=== PATIENT | female | born 1955 | race Caucasian/White ===

== ENCOUNTER 2016-04-09 22:19 | Inpatient (IN) | payer OTHER ==
[2016-04-09] MEDS ORDERED: HYDROmorphone INJ* 1 MG/ML CARPUJECT SYRINGE IV ONE (22:33)
[2016-04-09] MEDS ORDERED: NS 0.9% 1000 ML* 1,000 ML IV ONE (22:33)
[2016-04-09 22:46] LABS: Hematocrit 45 % (35-47); Hemoglobin 14.2 g/dl (12.0-16.0); Mean Corpuscular HGB Conc 31 g/dl (31-36); Mean Corpuscular Hemoglobin 25 pg (27-31); Mean Corpuscular Volume 81 fL (80-97); Mean Platelet Volume 8 um3 (7.4-10.4); Red Cell Distribution Width 18 % (10.5-15); White Blood Count 10.4 10^3/ul (3.5-10.8)
[2016-04-09 22:54] LABS: Albumin 3.8 g/dL (3.2-5.2); BUN/Creatinine Ratio 50.5 (8-20); C Reactive Protein 6.21 mg/L (< 5.00); Calcium 9.5 mg/dL (8.6-10.3); EGFR African American 73.1 (>60); EGFR Non-African American 56.8 (>60); Globulin 3.9 g/dL (2-4); Potassium 4.2 mmol/L (3.5-5.0); Total Bilirubin 0.6 mg/dL (0.2-1.0); Total Protein 7.7 g/dL (6.4-8.9)
[2016-04-09] MEDS: Ondansetron INJ* 2 MG/ML VIAL IV ONE (22:55)
[2016-04-10] MEDS ORDERED: Piperac/Tazob 3.375 gm in NS* 3.375 GM/100 ML BAG IVPB ONE (00:34)
[2016-04-10] MEDS ORDERED: metroNIDAZOLE IV 500 MG/100ML* 500 MG/100 ML BAG IVPB ONE (00:34)
[2016-04-10] MEDS ORDERED: Ondansetron INJ* 2 MG/ML VIAL ONE (01:29)
[2016-04-10] MEDS: Ondansetron INJ* 2 MG/ML VIAL IV ONE (01:33)
[2016-04-10] MEDS ORDERED: Insulin REGULAR(*) 1 UNITS UNIT SUBCUT ONE (04:36)
[2016-04-10] MEDS ORDERED: Albuterol HFA INHALER* 8 gm MDI INH PRN (05:57)
[2016-04-10] MEDS ORDERED: Albuterol/Ipratropium NEB.SOL* Albuterol 2.5 MG/Ipratropium 0.5 MG 3 ML INH PRN (05:57)
[2016-04-10] MEDS ORDERED: Nitroglycerin TAB 0.4 MG* 0.4 MG TAB SL PRN (05:57)
[2016-04-10] MEDS ORDERED: Ondansetron INJ* 2 MG/ML VIAL IV PRN (06:03)
--- NOTE | 2016-04-10 06:20 | ED ---
Sohail Steve Erika, scribed for Hiren Coffey MD on 04/10/16 at 0419 . Progress - Progress Note Progress Note: Discussed patient care with Dr. Gary (surgery) at 04:27 - Discussed CT results. Recommends that hospitalist see the patient, and states he will come and see the patient - Results/Orders Results/Orders: US Gallbladder read by Imaging customer contact sales associate - Pneumobilia versus portal venous gas in the liver. Cholelithiasis. Otherwise normal appearing gallbladder. CBD WNL. Limited pancreas. Normal appearance of the right kidney. CT A/P W/O read by Imaging customer contact sales associate - Extensive portal venous gas appears to be originating from abnormal appearing featureless small bowel loops in the med left abdomen that are borderline distended. These findings are likely secondary to ischemia. Obstruction is less likely but should be considered. Re-Evaluation - Re-Evaluation First Eval Re-Evaluation Time: 04:31 Comment: Pt is fairly comfortable Course/Dx - Diagnoses Provider Diagnoses: Acute abdominal pain - Provider Notifications Instructed by Provider To: Admit As Inpatient The documentation as recorded by the Sohail mustafa Erika accurately reflects the service I personally performed and the decisions made by me, Hiren Coffey MD.
[2016-04-10] MEDS: HYDROmorphone INJ* 1 MG/ML CARPUJECT SYRINGE IV SLOW PU PRN ×2 (07:05→23:20)
[2016-04-10] MEDS ORDERED: Bupivacaine 0.25% EPI 200,000* 30 ML SDV ONE (07:20)
[2016-04-10] MEDS ORDERED: Famotidine IV* 10 MG/ML 2 ML (20 mg) ONE (07:27)
[2016-04-10] MEDS ORDERED: fentaNYL* 50 MCG/ML 2 ML VIAL (100 MCG VIAL) ONE (07:27)
[2016-04-10] MEDS ORDERED: Midazolam* 1 MG/ML 2 ML VIAL (2 MG) ONE (07:27)
--- NOTE | 2016-04-10 07:43 | RAD ---
HISTORY: Right upper quadrant pain COMPARISONS: CT of the abdomen and pelvis dated April 10, 2016 TECHNIQUE: Multiple transverse and longitudinal ultrasound images were obtained of the right upper quadrant of the abdomen using grayscale and color Doppler imaging. FINDINGS: The study is limited by patient bowel gas. LIVER: The liver is heterogeneous in attenuation. There is increased echogenicity that appears to represent pneumobilia versus portal venous gas. There is normal hepatopedal flow of the portal vein on Doppler imaging. BILIARY TREE: . The common duct measures 0.4 cm. GALLBLADDER: There is multilevel echogenic material suggestive of gallstones versus sludge ball. There is no sonographic Macias's sign or gallbladder wall thickening. PANCREAS: The pancreas is obscured by overlying bowel gas. RIGHT KIDNEY: The right kidney is diffusely increased echogenicity. There is no hydronephrosis or nephrolithiasis. The right kidney measures 10.7 x 5.5 x 5 cm. AORTA AND IVC: The vasculature is not well-visualized secondary to overlying bowel gas FLUID: There are no pleural effusions. There is no free fluid within the hepatorenal recess. OTHER FINDINGS: None. IMPRESSION: 1. FINDINGS SUGGESTIVE OF PNEUMOBILIA VERSUS PORTAL VENOUS GAS. 2. ECHOGENIC KIDNEY CONSISTENT WITH MEDICAL RENAL DISEASE. 3. GALLSTONES VERSUS SLUDGE BALLS. NO SONOGRAPHIC FEATURES OF ACUTE CHOLECYSTITIS
[2016-04-10] MEDS ORDERED: Spiriva Inhaler DEVICE* 1 EACH DEVICE INH ONE (08:00)
[2016-04-10] MEDS ORDERED: ZOSYN 3.375 GM ONE TIME DOSE-OVER 30 MINUTES IVPB (08:00)
--- NOTE | 2016-04-10 08:02 | RAD ---
HISTORY: Vomiting, abdominal pain COMPARISONS: None VIEWS:1: Single frontal portable view of the chest at 6:51 AM FINDINGS: LINES AND TUBES: There is left-sided pacemaker. CARDIOMEDIASTINAL SILHOUETTE: The cardiomediastinal silhouette is normal for portable technique. PLEURA: The costophrenic angles are sharp. No pleural abnormalities are noted. LUNG PARENCHYMA: There is mild prominence of the central pulmonary vasculature. ABDOMEN: The upper abdomen is clear. There is no subphrenic gas. BONES AND SOFT TISSUES: The patient is status post median sternotomy. Calcific density is noted along the proximal left humerus consistent with calcific tendinopathy. IMPRESSION: MILD PULMONARY VASCULAR CONGESTION
[2016-04-10] MEDS ORDERED: Cisatracurium* 2 MG/ML MDV 10 ML ONE (08:06)
[2016-04-10] MEDS ORDERED: KETAMINE HCL* 50 MG/ML 10 ML VIAL ONE (08:06)
--- NOTE | 2016-04-10 08:09 | RAD ---
Indication: Right upper quadrant pain. CT of the abdomen and pelvis was performed after oral contrast administration. No IV contrast was given. There are no prior studies available for comparison. Coronal and sagittal reconstructed images were obtained. The lung bases demonstrate no pleural fluid, nodules or masses. The heart is enlarged without evidence of pericardial effusion. Pacemaker leads are in place. The liver demonstrates enlargement. Multiple branching areas of air are noted within the liver consistent with portal venous gas. The pancreas demonstrates no mass or pancreatic ductal dilatation. The spleen is normal in size. The gallbladder demonstrates multiple calcified gallstones. No adrenal lesions are noted. The kidneys demonstrate no hydronephrosis. Atherosclerotic aorta is noted. There is rather featureless loops of small bowel in the left lower quadrant. There is suggestion of some pneumatosis in the left lower quadrant. This may be the source for the portal venous air and likely due to ischemic bowel disease. There are displaced intimal calcifications in the inferior abdominal aorta. Findings are suggestive of aortic dissection. Age of this is undetermined especially with lack of IV contrast. Air is noted in the superior mesenteric vein. CT of the pelvis demonstrates a distended urinary bladder. No hernias are noted. No dilated loops of bowel are noted. Uterus is otherwise unremarkable. IMPRESSION: THERE IS EXTENSIVE PORTAL VENOUS AIR AND MESENTERIC VENOUS AIR NOTED. THIS IS LIKELY SECONDARY TO ISCHEMIC BOWEL. AREAS OF PNEUMATOSIS ARE NOTED IN THE SMALL BOWEL OF THE LEFT LOWER QUADRANT. ADDITIONALLY IN THE INFRARENAL ABDOMINAL AORTA THERE IS DISPLACED INTIMAL CALCIFICATION SUGGESTIVE OF AORTIC DISSECTION WHICH IS INFRARENAL IN NATURE AGE OF WHICH IS UNDETERMINED. SURGICAL CONSULTATION IS SUGGESTED. FINDINGS WERE DOCUMENTED AT THE TIME OF THE EXAMINATION ON THE IMAGING NIBBLER OPERATOR REPORT.
[2016-04-10] MEDS ORDERED: Hydrocortisone INJ* 100 MG VIAL ONE (08:31)
[2016-04-10] MEDS ORDERED: Propofol* 10 MG/ML 20 ML BTL IV PUSH ONE (08:33)
[2016-04-10] MEDS ORDERED: Succinylcholine* 20 MG/ML 10 ML VIAL ONE (08:33)
[2016-04-10] MEDS ORDERED: Lidocaine 2% MPF* 2 ML VIAL ONE (08:33)
[2016-04-10] MEDS ORDERED: Montelukast Sodium TAB* 10 MG PO SCH (09:00)
[2016-04-10] MEDS ORDERED: Mometasone/Formoter 200/5 MDI INH SCH (09:00)
[2016-04-10] MEDS ORDERED: Famotidine TAB* 20 MG PO SCH (09:00)
[2016-04-10] MEDS ORDERED: Docusate CAP* 100 MG PO SCH (09:00)
[2016-04-10] MEDS ORDERED: Metoprolol Succinate XL TAB* 25 MG PO SCH (09:00)
[2016-04-10] MEDS ORDERED: Gabapentin CAP(*) 300 MG PO SCH ×2 (09:00→21:00)
[2016-04-10] MEDS ORDERED: Tiotropium CAP.INH* CAP.INH/18 MCG (USE ORDER SET !) INH SCH (09:00)
[2016-04-10] MEDS ORDERED: Bumetanide TAB* 1 MG PO SCH (09:00)
[2016-04-10] MEDS ORDERED: Insulin ISOPH/REG 70/30 (*) 1 UNITS UNIT SUBCUT SCH (09:00)
[2016-04-10] MEDS ORDERED: Clopidogrel TAB* 75 MG PO SCH (09:00)
[2016-04-10] MEDS ORDERED: Magnesium Oxide TAB* 400 MG PO SCH (09:00)
[2016-04-10] MEDS ORDERED: Ramipril CAP* 5 MG PO SCH (09:00)
[2016-04-10] MEDS ORDERED: Sertraline* 100 MG TAB PO SCH (09:00)
--- NOTE | 2016-04-10 09:14 | HP ---
HISTORY AND PHYSICAL: DATE OF ADMISSION: 04/10/16 CHIEF COMPLAINT: Abdominal pain. HISTORY OF PRESENT ILLNESS: The patient is a 60-year-old woman who was sent over from [facility] with a chief complaint of abdominal pain. The patient was recently transferred there and apparently was supposed to go home from there today. She was at [facility] prior to this for an admission. In the ED, the patient was evaluated and seemed quite confused. According to her family, this is not entirely new. She did have a CT scan which actually showed gas originating from small bowel loops in the abdomen. Surgery was consulted and felt the patient go to the OR as soon as possible. A conversation was had with the family because there is concern that either way the patient will be high risk for not surviving. The patient herself, unfortunately, appears too confused to understand the ramification of this. PAST MEDICAL HISTORY: She does have a past medical history of significant for congestive heart failure with an EF of 25 to 30% and both systolic and diastolic dysfunction, alcoholic hepatitis, coronary artery disease, status post CABG, history of DVT in 2014, anxiety, neuropathy, chronic back pain, status post AICD placement, multiple falls in the past, and cutaneous allodynia. CURRENT MEDICATIONS: Are as follows: 1. Metformin 1000 mg twice daily. 2. Spironolactone 50 mg daily. 3. Spiriva one inhalation daily. 4. Sertraline 100 mg daily. 5. Ramipril 5 mg daily. 6. Prednisolone 40 mg daily. 7. Novolin 70/30, 20 units subcu twice daily. 8. Nitroglycerin 0.4 mg sublingual q.5 minutes as needed. 9. Singulair 10 mg daily. 10. Metoprolol succinate 25 mg twice daily. 11. Magnesium 250 mg daily. 12. Gabapentin 300 mg 3 times a day, and 900 mg at bedtime. 13. Famotidine 20 mg twice daily. 14. Docusate 100 mg twice daily. 15. Plavix 75 mg daily. 16. Bumex 1 mg twice daily. 17. Symbicort 160/4.5, two inhalations twice daily. 18. Albuterol neb/DuoNeb one nebulizer q.6 hours as needed. 19. Ventolin inhaler two puffs every 4 hours as needed. 20. Tramadol 60 mg every 6 hours as needed. ALLERGIES: She has allergy/adverse reaction to CODEINE, IOHEXOL, and ASPIRIN. FAMILY HISTORY: Unable to obtain. SOCIAL HISTORY: Unable to obtain. REVIEW OF SYSTEMS: Unable to obtain. All this because of the patient's confusion. PHYSICAL EXAMINATION GENERAL: A this woman lying in bed, in no acute distress, but clearly uncomfortable. VITAL SIGNS: Blood pressure 163/58, respiratory rate 18 breaths per minute, heart rate 79 beats per minute, temperature 98.2 degrees. HEENT: Normocephalic and atraumatic. Pupils are equal, round and reactive to light. Moist mucous membranes. NECK: Supple. No JVD, bruits, palpable thyroid or lymphadenopathy. CHEST: Clear to auscultation and percussion bilaterally. CARDIOVASCULAR: S1, S2 appreciated. Regular rate and rhythm. ABDOMEN: Positive bowel sounds in all 4 quadrants. Soft, but it is tender throughout. No evidence of voluntary guarding, but no rigidity. EXTREMITIES: No cyanosis, clubbing, or edema. +2 peripheral pulses bilaterally. NEUROLOGIC: Alert and oriented x1. Moves all extremities. SKIN: No rashes or abnormalities. LABORATORY DATA: White count 10.4, hemoglobin 14.2, hematocrit 45, platelets 409. Sodium 128, potassium 4.2, chloride 92, CO2 25, BUN 15, creatinine 0.99, glucose 509; lactic acid was 2.8, now down to 2.2; lipase 88. CAT scan shows extensive portal venous gas appearing to be originating from abnormal appearing featureless small bowel loops in the mid abdomen that are borderline distended. These findings are likely secondary to ischemia; obstruction is less likely, but should be considered. Ultrasound shows pneumobilia versus portal venous gas of the liver, cholelithiasis, otherwise normal appearing gallbladder, common bile duct within normal limits, limited pancreas normal appearance of the right kidney. EKG shows normal sinus rhythm 81 beats per minute, normal axis, Qs in III and F , LVH, left atrial hypertrophy. ASSESSMENT AND PLAN: 1. Likely ischemic bowel. Surgery has seen patient and likely will take to the OR. She is at high risk for any surgery. We will help them manage both her diabetes and heart issues. 2. Diabetes mellitus. We will place her on fingersticks and sliding scale insulin q.4 hours. Hold metformin. We would like to keep sugars between 120 to 180. 3. Coronary artery disease. Continue current regimen. Cardiology likely to see for any input that they may be able to offer. 4. COPD. Continue current regimen. The patient seems stable from this point of view. 5. FEN. N.p.o. with IV fluids. Awaiting surgery. 6. DVT prophylaxis. Heparin subcu. 7. The patient is a full code at this time. TIME SPENT: Over 75 minutes were spent on this H and P, more than 40 minutes of which were spent direct [id number] contact with the patient in evaluation, physical exam, counseling, and coordination of care. CC: Dr. Ramy Gary* [id number]/CPS #: [id number]
--- NOTE | 2016-04-10 09:47 | ED ---
David Steve Adam, scribed for Michael Benites MD on 04/09/16 at 2234 . Abdominal Pain/Female - HPI Summary HPI Summary: Pt is a 60 year old female presenting with abdominal pain that set on after she ate spaghetti and meatballs at 17:30 today. The pain is in the RUQ and it has been constant and growing progressively worse. Lying down aggravates the pain. She denies ever having pain like this before. She also c/o nausea and vomiting 1x which did not alleviate the abdominal pain. She denies any difficulty urinating or having BM's. PMHx of a "heart condition". She denies Hx of cholecystectomy. - History of Current Complaint Stated Complaint: ABD PAIN Time Seen by Provider: 04/09/16 22:27 Hx Obtained From: Patient Onset/Duration: Sudden Onset, Lasting Hours, Still Present Timing: Constant Severity Initially: Mild Severity Currently: Moderate Location: Discrete At: RUQ Radiates: No Character: Sharp Aggravating Factor(s): Other: - Recumbent position Alleviating Factor(s): Nothing Associated Signs and Symptoms: Positive: Nausea, Vomiting. Negative: Constipation, Blood in Stool, Urinary Symptoms, Diarrhea Allergies/Adverse Reactions: Allergies Allergy/AdvReac Type Severity Reaction Status Date / Time Codeine Allergy Mild Hives Verified 04/09/16 22:42 Iohexol Allergy Hives Verified 04/09/16 22:42 Aspirin [ASA] AdvReac Mild Hives Verified 04/09/16 22:42 PMH/Surg Hx/FS Hx/Imm Hx Cardiovascular History: Reports: Other Cardiovascular Problems/Disorders - "Heart condition" - Family History Known Family History: Positive: None - Social History Occupation: Unemployed Lives: [facility] Review of Systems Constitutional: Negative Negative: Fever Positive: Abdominal Pain, Vomiting, Nausea. Negative: Diarrhea Genitourinary: Negative Negative: dysuria All Other Systems Reviewed And Are Negative: Yes Physical Exam Triage Information Reviewed: Yes Vital Signs On Initial Exam: Initial Vitals Temp Pulse Resp BP Pulse Ox 98.2 F 70 18 164/84 96 04/09/16 22:20 04/09/16 22:20 04/09/16 22:20 04/09/16 22:20 04/09/16 22:20 Vital Signs Reviewed: Yes Appearance: Positive: Ill-Appearing - Patient appears uncomfortable Skin: Positive: Warm, Skin Color Reflects Adequate Perfusion, Dry Head/Face: Positive: Normal Head/Face Inspection Eyes: Positive: Normal ENT: Positive: Normal ENT inspection Neck: Positive: Supple, Nontender Respiratory/Lung Sounds: Positive: Clear to Auscultation, Breath Sounds Present Cardiovascular: Positive: RRR Abdomen Description: Positive: Other: - Tenderness in the RUQ Bowel Sounds: Positive: Present Musculoskeletal: Positive: Normal Neurological: Positive: Normal Psychiatric: Positive: Normal, Affect/Mood Appropriate Diagnostics - Vital Signs Vital Signs Temp Pulse Resp BP Pulse Ox 04/10/16 06:02 168/54 04/10/16 06:00 18 04/10/16 05:30 163/58 04/10/16 05:00 19 170/58 04/10/16 04:30 16 169/63 04/10/16 04:00 74 17 180/64 97 04/10/16 03:57 74 17 181/63 96 04/10/16 03:30 74 14 167/67 95 04/10/16 03:00 17 182/74 04/10/16 02:30 16 180/67 04/10/16 02:00 72 14 180/66 96 04/10/16 01:30 73 15 181/73 96 04/10/16 01:05 65 12 95 04/10/16 01:04 176/72 04/10/16 00:50 13 04/10/16 00:30 179/74 04/10/16 00:01 11 178/87 04/09/16 23:59 14 04/09/16 23:40 16 04/09/16 22:55 20 04/09/16 22:20 98.2 F 70 18 164/84 96 - Laboratory Lab Results: Lab Results 04/09/16 04/09/16 04/09/16 Range/Units 22:25 22:25 22:25 WBC 10.4 (3.5-10.8) 10^3/ul RBC 5.60 H (4.0-5.4) 10^6/ul Hgb 14.2 (12.0-16.0) g/dl Hct 45 (35-47) % MCV 81 (80-97) fL MCH 25 L (27-31) pg MCHC 31 (31-36) g/dl RDW 18 H (10.5-15) % Plt Count 409 (150-450) 10^3/ul MPV 8 (7.4-10.4) um3 Neut % (Auto) 77.8 (38-83) % Lymph % (Auto) 12.2 L (25-47) % [place] % (Auto) 9.5 H (1-9) % Eos % (Auto) 0 (0-6) % Baso % (Auto) 0.5 (0-2) % Absolute Neuts (auto) 8.1 H (1.5-7.7) 10^3/ul Absolute Lymphs (auto) 1.3 (1.0-4.8) 10^3/ul Absolute Monos (auto) 1.0 H (0-0.8) 10^3/ul Absolute Eos (auto) 0 (0-0.6) 10^3/ul Absolute Basos (auto) 0 (0-0.2) 10^3/ul Absolute Nucleated RBC 0.01 10^3/ul Nucleated RBC % 0 Sodium 128 L (133-145) mmol/L Potassium 4.2 (3.5-5.0) mmol/L Chloride 92 L (101-111) mmol/L Carbon Dioxide 25 (22-32) mmol/L Anion Gap 11 (2-11) mmol/L BUN 50 H (6-24) mg/dL Creatinine 0.99 H (0.51-0.95) mg/dL Est GFR ( Amer) 73.1 (>60) Est GFR (Non-Af Amer) 56.8 (>60) BUN/Creatinine Ratio 50.5 H (8-20) Glucose 509 H* (70-100) mg/dL Lactic Acid 2.8 H* (0.5-2.0) mmol/L Calcium 9.5 (8.6-10.3) mg/dL Total Bilirubin 0.60 (0.2-1.0) mg/dL AST 17 (13-39) U/L ALT 20 (7-52) U/L Alkaline Phosphatase 197 H (34-104) U/L C-Reactive Protein 6.21 H (< 5.00) mg/L Total Protein 7.7 (6.4-8.9) g/dL Albumin 3.8 (3.2-5.2) g/dL Globulin 3.9 (2-4) g/dL Albumin/Globulin Ratio 1.0 (1-3) Lipase 88 H (11.0-82.0) U/L Result Diagrams: 04/09/16 22:25 04/09/16 22:25 Lab Statement: Any lab studies that have been ordered have been reviewed, and results considered in the medical decision making process. - Additional Comments Diagnostic Additional Comments: Lactic Acid - 2.8 Glucose - 509 Abdominal Pain Fem Course/Dx - Course Course Of Treatment: Ms. Smith presented with a sudden onset of LUQ pain while eating. She had had similarr although milder3 incidents in the past but this pain was severe and brought her in. Clinnically, I thought this was likely a GB attack and obtained labs and U/S. U/S showed pneumobilia and a CT with contrast and antibiotics were ordered and pending at change of shift. She did rreceive significant relief from pain meds. - Diagnoses Provider Diagnoses: Acute abdominal pain - Provider Notifications Discussed Care Of Patient With: Ric and Jared Time Discussed With Above Provider: 00:30 - Change of shift Discharge - Discharge Plan Condition: Stable Disposition: ADMITTED TO [facility] documentation as recorded by the David mustafa Adam accurately reflects the service I personally performed and the decisions made by me, Michael Benites MD.
--- NOTE | 2016-04-10 10:02 | SURGPN ---
Brief Operative Note - Surgery Procedures: OPERATIVE REPORT PRE-OP: Acute abdomen, Portal venous air on CT scan of abdomen POST-OP: 1) Same 2) Two areas of small bowel ischemia and patchy necrosis PROCEDURE: Diagnostic laparoscopy, open exploratory laparotomy with two small bowel resections. No anastomosis, abdominal wall left open SURGEON: MD Cookie ANESTHESIA: General with Dr. Parish ASST: Ray COLIN IVF: 1 liter of crystalloid EBL: min SPECIMEN: two segments of small bowel DRAIN: FRANKIE # 10 in subq space WOUND CLASS: 2 COMPLICATIONS: none TO ICU
--- NOTE | 2016-04-10 10:03 | HP ---
HISTORY AND PHYSICAL: DATE OF ADMISSION: 04/10/2016. REASON FOR ADMISSION: Abdominal pain with abnormal CT scan. HISTORY OF PRESENT ILLNESS: Ms. Little Smith is a 60-year-old woman, who apparently was eating dinner last evening at the [facility] where she presently resides when she developed a severe and sudden onset of abdominal pain with nausea and vomiting. History is obtained mainly from the chart and the old previous records from [facility] admission in mid March. The patient is a poor historian and by history has some mental status changes which are not acute. She was brought to the emergency and found to be hemodynamically stable without fever, complaining of abdominal pain. Laboratory workup included a normal white blood cell count with a hemoglobin of 14.2, platelet count 409,000, and INR of 0.88. She has a lactic acid of 2.8 and a glucose of 509, which was treated with insulin. BUN and creatinine were 50 and 0.99. She had a slight elevation of C- reactive protein with a lipase of 88. She underwent an ultrasound of her gallbladder. This showed most likely gallbladder sludge, possible stones with no evidence of cholecystitis, however, there is also noted to be concern for pneumobilia versus portal venous gas. She subsequently underwent a CT scan of the abdomen and pelvis and I did review all of these images. These show a large amount of portal venous gas within the liver and some mesenteric venous air as well. There is poor passage of the oral contrast, but there are some small bowel loops which appeared to be somewhat abnormal. There is no significant free intraabdominal fluid. There is no pneumoperitoneum. The patient was resuscitated in the emergency room, given intravenous antibiotics and after the CT scan results were available, surgical and hospitalist consultations were obtained. The discharge summary from [facility] was reviewed. The majority of this history is obtained from this document. She has had multiple admissions to [facility] and there is no record of any care here at [facility]. She was a poor historian, refused to cooperate with nurses, and family did not feel that she was a candidate for discharge home, and she was subsequently sent to [facility] for further rehabilitation. She was also changed to a DNR at that time. Also noted was evaluation and workup of abdominal discomfort. She had at least 2 CT scans of the chest and abdomen, which showed no definitive significant acute findings to explain some of the abdominal pain that she was having. There was concern for gallbladder pathology, but general surgical consultation did not think this was significant. Reference was made to a GI consultation. A HIDA scan was not done. PAST MEDICAL HISTORY: Past medical history, which is obtained from the recent hospitalization at [facility]. 1. Altered mental status. The etiology was felt to be multifactorial secondary to polypharmacy, history of alcohol abuse, and possible liver disease. Also has had elevation of blood sugars in the past. 2. Chronic systolic and diastolic heart failure. She had an echocardiogram on 01/05/2016 with ejection fraction of 25% to 30%. 3. Cyeup-ut-agfbmgu renal insufficiency. 4. Liver transaminitis possibly secondary to alcoholic hepatitis. 5. Obstructive lung disease. 6. Coronary artery disease with AICD/ pacemaker insertion. 7. Hypertension. 8. COPD. 9. Insulin dependent diabetes. 10. She has a remote history of a deep vein thrombosis, but Coumadin has been discontinued. PAST SURGICAL HISTORY: 1. Coronary artery bypass grafting. 2. AICD/pacemaker insertion. MEDICATIONS: Include metformin, spironolactone, Spiriva, Zoloft, ramipril, prednisone 40 mg daily, Novolin insulin, nitroglycerin p.r.n., Singulair, metoprolol, gabapentin, famotidine, Plavix 75 mg daily, Bumex, albuterol, Tylenol p.r.n. ALLERGIES: CODEINE, ASPIRIN, and IV DYE. REVIEW OF SYSTEMS: Otherwise is not able to be obtained from the patient due to her mental status as well as being a poor historian. PHYSICAL EXAMINATION GENERAL: She is afebrile, pulse 84, blood pressure 163/56. In general, she is a slender, poorly-nourished patient, who appears to be mildly uncomfortable. She will respond to questions and open her eyes, but is a poor historian as far as medical history, but does complain of abdominal pain. HEENT: Sclerae are anicteric. LUNGS: Clear with diminished breath sounds at the bases. She has no rhonchi or rales. She has a pacemaker in the left anterior chest wall. HEART: Regular rate and rhythm. ABDOMEN: Abdomen is without prior surgical incision, it is nondistended. She has no bowel sounds. She has diffuse generalized tenderness with guarding and rebound throughout consistent with acute peritonitis. EXTREMITIES: Show no cyanosis or edema. LABORATORY DATA: Laboratory workup as per above. IMPRESSION: 1. Abdominal discomfort severe with nausea and vomiting after eating. She has a normal white count, mild elevation of lactic acid and a CT scan showing a large amount of portal venous air as well as some mesenteric venous air and some loops of possible abnormal small bowel. Physical exam shows diffuse generalized tenderness with rebound and guarding. 2. Multiple medical issues as described above. I had a long discussion with the patient on the findings. Although she has some altered mental status, she is awake and appears to understand and I impressed upon her the significance of these findings and the fact that this is a possible life- threatening process until proven otherwise and the need for urgent surgical intervention. I recommend to proceed with diagnostic laparoscopy and possible laparotomy and after our discussion, she would like to proceed in this fashion with all aggressive measures taken at this point. In addition, she does not have a legal power of corporate associate attorney or proxy and I did talk with her boyfriend, Aston Barone who lives in [place] as well as her nephew, Nick Smith, and Kayla Smith, her [id number] at [phone] explaining the situation to them and they have given consent for her in the past and also feel that she would want aggressive intervention at this point. After a long discussion with the family as well as the patient due to the emergency nature of the situation and despite the patient's altered mental status and the fact that she has apparently no legal guardian/proxy/power of corporate associate attorney, I will proceed with emergency operation at this point despite not obtaining complete informed legal consent. The procedure was discussed with the patient and her family the risks, but are not limited to bleeding, infection, intraabdominal abscess formation, injury to peritoneum, rupture of peritoneal structures, possibly an open procedure, possible bowel resection, possible ostomy, possible reoperation depending on her clinical course, in addition to the fact that she will require intensive care unit admission for possible prolonged ventilator assistance, pulmonary failure, renal failure, sepsis, and were all explained. [id number]/CPS #: [id number] INNA
[2016-04-10] MEDS ORDERED: Propofol* 100 ML ONE (10:11)
--- NOTE | 2016-04-10 10:43 | RAD ---
HISTORY: Central line placement COMPARISONS: April 10, 2016 at 6:51 AM VIEWS:1: Single frontal portable view of the chest at 10:34 AM FINDINGS: LINES AND TUBES: An endotracheal tube is noted with the tip overlying the trachea at the level clavicles. A gastric tube is noted. The tip is in the distal esophagus. A right internal jugular venous catheter is noted with the tip overlying the superior vena cava. CARDIOMEDIASTINAL SILHOUETTE: The cardiomediastinal silhouette is normal for portable technique. PLEURA: The costophrenic angles are sharp. No pleural abnormalities are noted. LUNG PARENCHYMA: The lungs are clear. ABDOMEN: A surgical drain is noted in the upper abdomen. BONES AND SOFT TISSUES: The patient is status post median sternotomy. IMPRESSION: LINES AND TUBES ABOVE. NO ACTIVE CARDIOPULMONARY DISEASE. THE GASTRIC TUBE POSITION WAS DISCUSSED WITH ICU AT APPROXIMATELY 10:39 AM ON APRIL 10, 2016
[2016-04-10] MEDS ORDERED: NS 0.9% 1000 ML* 1,000 ML IV SCH (10:45)
[2016-04-10] MEDS ORDERED: Metoprolol Tartrate IV* 1 MG/ML 5 ML VIAL IV PRN (10:47)
[2016-04-10] MEDS: NS 0.9% 1000 ML* 1,000 ML IV SCH ×2 (11:00→23:33)
--- NOTE | 2016-04-10 11:02 | PN ---
Progress Note - Progress Note Note: Critical Care Medicine Consultation 60 yo female who comes to ICU from OR s/p laparoscopy and Laparotomy for ischemic bowel for which she underwent small bowel resection. Patient arrives sedated and intubated on the ventilator with a still open abdomen. All history obtained from chart/EMR. PMH CHF (diastolic and systolic with LVEF~25%), CAD s/p CABG, AICD, COPD, DVT, Alcoholic hepatitis, Peripheral Neuropathy, Anxiety, Chronic Back Pain, Multiple Falls Allergy Codeine, Contrast Dye, Aspirin SBP 143 HR 75 SR with occ VPC APV/CMV FiO2 35 PEEP 5 Freq(total) 18-19 TV 450 Skin Lt knee with broad ecchymosis, no diaphoresis, no cyanosis Sclerae anicteric, pupils equal Oral ETT and GT Oral mucosa pink Rt IJ TLC in place Chest with old healed sternotomy scar, upper Lt chest with prominent subcutaneous generator (no surrounding or overlying soft tissue) Lungs with bilateral BS, no wheezes Cor RRR no rub, no murmur Abd protuberant, synthetic membrane cover virtually entire anterior abdomen and midline wound edwards Ext no edema, much loose skin tissue, little solid muscle mass underneath, (+) SCDs RUE PIV in place Lt Radial A-line No labs since OR Labs overnight WBC 10.4 Hgb 14.2 Plt 409 INR 0.88 Na 128 K 4.2 BUN/Creat 50/0.99 Gluc 173 Lact 2.2 Bili 0.9 Alb 3.8 Post-op CXR per call earler from Radiologist GT in mid-esophagus IMP: Ischemic Bowel s/p Laparotomy with small bowel resection returned from OR intubated and mechanically ventilated with open abdomen Currently sedated with Propofol gtt Hx Cardiomyopathy with both diastolic and systolic CHF and with AICD Hx COPD Hx CAD s/p CABG Appears to have chronic protein calorie malnutrition Hyponatremia Prerenal azotemia...suspect was hypovolemic Hyperglycemia Hx DVT PLAN/REC: Continue Propofol gtt Add low dose Fentanyl gtt for analgesia Full MV support for now Keep HOB>30 deg Suctioning PRN Acid Peptic Supp DVT prophyl Check CBC, BMP, Mg, Phos, Lactate, Troponin, ABG, and VBG IV NS Trend CVP DuoNeb Q6 Lopressor 5 mg IV Q6 Initiate nutrition support soon Push "in" gastric tube For now to hold on ACEI, Gabapentin, diuretic, and most all oral meds previously ordered
[2016-04-10 11:36] LABS: PCO2 Arterial 48 mmHg (35-45)
[2016-04-10 11:39] LABS: Hematocrit 41 % (35-47); Hemoglobin 12.8 g/dl (12.0-16.0); Mean Corpuscular HGB Conc 31 g/dl (31-36); Mean Corpuscular Hemoglobin 25 pg (27-31); Mean Corpuscular Volume 81 fL (80-97); Mean Platelet Volume 8 um3 (7.4-10.4); Red Cell Distribution Width 19 % (10.5-15); White Blood Count 6.4 10^3/ul (3.5-10.8)
[2016-04-10 11:56] LABS: BUN/Creatinine Ratio 69.6 (8-20); EGFR African American 141.1 (>60); EGFR Non-African American 109.7 (>60); Magnesium 1.2 mg/dL (1.9-2.7); Phosphorus 2.5 mg/dL (2.5-5.0); Potassium 3.5 mmol/L (3.5-5.0)
[2016-04-10 12:02] LABS: Troponin I 0.1 ng/mL (<0.04)
[2016-04-10 12:06] LABS: Venous Bicarbonate HCO3 24.7 mmol/L (24-28)
[2016-04-10] MEDS ORDERED: Magnesium Sulfate IV* 3 GM in NS 0.9% 100 ML* 100 ML IVPB ONE (12:26)
[2016-04-10] MEDS ORDERED: Piperac/Tazob 3.375 gm in NS* 3.375 GM/100 ML BAG IVPB SCH (12:30)
[2016-04-10 13:20] LABS: Calcium 7.8 mg/dL (8.6-10.3)
[2016-04-10] MEDS ORDERED: Heparin VIAL(*) 5000 UNITS/ML VIAL (FIVE THOUSAND) IV SCH (14:00)
[2016-04-10] MEDS ORDERED: Heparin VIAL(*) 5000 UNITS/ML VIAL (FIVE THOUSAND) SUBCUT SCH (14:00)
[2016-04-10] MEDS: Insulin LISPRO* 1 UNITS UNIT SUBCUT SCH ×3 (14:30→20:25)
[2016-04-10] MEDS: Chlorhexidine MOUTHWASH 0.12%* 15 ML UDC TOPICAL SCH ×3 (14:47→20:41)
[2016-04-10] MEDS: Heparin DRIP 25,000 UNITS(*) 25,000 UNITS/500 ML BAG IV SCH (14:59)
[2016-04-10] MEDS: Hydrocortisone INJ* 100 MG VIAL IV SCH ×3 (14:59→23:01)
[2016-04-10] MEDS: Piperac/Tazob 3.375 gm in NS* 3.375 GM/100 ML BAG IVPB SCH ×2 (15:36→23:01)
--- NOTE | 2016-04-10 15:52 | PN ---
Progress Note - Progress Note SOAP: Subjective: Patient is stable on ventilator and is sedated and appears comfortable. Temp Pulse Resp BP Pulse Ox 98.1 F 89 17 117/41 99 04/10/16 13:00 04/10/16 14:00 04/10/16 14:00 04/10/16 14:00 04/10/16 14:00 I reviewed the findings at OR with the patient's nephew Nick Smith and [id number] Kayla Smith at the bedside this afternoon. I impressed upon them the severity of her present illness and the high risk of significant morbidity and high chance of not surviving her post-operative course. We were also able to obtain documentation from her recent [facility] hospitalization that documents the above two to be Health care proxies that are able to make decisions for the patient if she is unable to speak for herself. I also discussed care with our client services analyst Dr. Marroquin and I appreciate his care. Plan: Will continue mechanical ventilator support and sedation Plan second look laparotomy in 48 hours, sooner prn Have started IV heparin in light of findings at exploration IV antibiotics PPI Beta wily continuation
[2016-04-10] MEDS: Metoprolol Tartrate IV* 1 MG/ML 5 ML VIAL IV SCH ×2 (16:15→21:19)
[2016-04-10] MEDS: Propofol* 100 ML IV SCH ×2 (17:52→19:20)
[2016-04-10] MEDS: Famotidine IV * 20 MG in NS 0.9% 100 ML* 100 ML IVPB SCH (20:41)
[2016-04-10 20:50] LABS: Hematocrit 40 % (35-47); Hemoglobin 12.4 g/dl (12.0-16.0); Mean Corpuscular HGB Conc 31 g/dl (31-36); Mean Corpuscular Hemoglobin 25 pg (27-31); Mean Corpuscular Volume 81 fL (80-97); Mean Platelet Volume 8 um3 (7.4-10.4); Red Blood Count 4.98 10^6/ul (4.0-5.4); Red Cell Distribution Width 19 % (10.5-15); White Blood Count 8.6 10^3/ul (3.5-10.8)
[2016-04-10 20:52] LABS: Add Diff/Slide Review? Slide Review Added; Comments Flag Yes
[2016-04-10 22:47] LABS: BUN/Creatinine Ratio 49.2 (8-20); Calcium 8.4 mg/dL (8.6-10.3); EGFR African American 127.8 (>60); EGFR Non-African American 99.4 (>60); Magnesium 2.2 mg/dL (1.9-2.7); Potassium 3.6 mmol/L (3.5-5.0)
[2016-04-11] MEDS: Insulin LISPRO* 1 UNITS UNIT SUBCUT SCH ×7 (00:38→23:36)
[2016-04-11] MEDS: Chlorhexidine MOUTHWASH 0.12%* 15 ML UDC TOPICAL SCH ×7 (00:39→23:37)
--- NOTE | 2016-04-11 02:37 | OP ---
DATE OF OPERATION: 04/10/16 - ROOM #ICU-02 DATE OF : 51 SURGEON: Ramy Gary MD [employer] FINAL INSPECTOR: DIXIE Pacheco ANESTHESIOLOGIST: Dr. Parish. ANESTHESIA: General. PRE-OP DIAGNOSES: 1. Acute abdomen with peritonitis. 2. Large amount of portal venous gas noted on preoperative CT scan. POST-OP DIAGNOSES: 1. Acute abdomen with peritonitis. 2. Small bowel ischemia with patchy areas of necrosis in 2 portions of the proximal to mid small bowel, small bowel otherwise viable colon. 3. Slight mild micronodular liver surface. OPERATIVE PROCEDURE: Diagnostic laparoscopy with exploratory laparotomy with 2 small bowel resections without anastomosis and temporary closure of abdominal wall. INDICATIONS: Ms. Little Smith is a 60-year-old woman who presented to the emergency room after she was at [facility] after eating a large meal , developed sudden severe abdominal pain as well as nausea, vomiting. She had been having problems with current abdominal discomfort for the past several weeks, was at [facility] for 10 days with altered mental status and falls and has multiple medical issues. Please see the preoperatively dictated history and physical for these details. She was noted to have a normal white blood cell count and mild elevation in her renal function; however, a CT scan of her abdomen and pelvis showed a marked amount of portal venous gas as well as mesenteric venous gas. Also there was concern for pneumatosis and portions of the small bowel. There was no free air. The patient has no primary relatives; however, I was able to discuss with her nephew and [id number]-jee, who live in [place]. They were able to give further history as the patient was somewhat of a poor historian and had some mental status changes and it was felt that they had been given healthcare directives for them to make decisions for her although we did not have this written documentation as of early this morning. However, after reviewing her history and physical examination and workup, I felt that she required an emergent laparoscopy/laparotomy and after discussing this with the patient, who did give consent although, this was most likely not reliable informed consent and discussed it with her family, due to the emergent nature and informed an actual legal informed consent was most likely not obtained, but we are going to proceed with the procedure. The procedure was also discussed with them and the patient and the risks, benefits, and alternatives were discussed. It was also stressed to them the life threatening illness with a high rate of morbidity and mortality. FINDINGS: The liver appeared to be micronodular, probably consistent with previous alcohol abuse. The gallbladder was without evidence of acute or chronic inflammation. Stomach was normal. The entire colon was unremarkable. Small bowel was evaluated. It was not particularly distended; however, there were 2 sections of at least of about 12 inches each, one in the proximal to mid jejunum, which had thickened bowel wall with a hemorrhagic appearance as well as areas of patchy necrosis. Likewise, approximately 2 to 3 feet distal to this was a similar area with patchy areas of necrosis, also approximately 12 to 14 inches. Both of these areas were resected. Primary anastomosis was not performed. In addition, there was no edema to the bowel wall. There did not appear to be evidence of venous thrombosis. She has strong palpable aortoiliac pulses as well as femoral pulses noted. I did not appreciate, however, strong pulsatile flow in the superior mesenteric artery. ESTIMATED BLOOD LOSS: Minimal. IV FLUIDS: 1 L of crystalloids. SPECIMENS: Two sections of small bowel, sent in formalin, labeled as such. DRAINS: #10 FRANKIE drain in subcutaneous space. WOUND CLASSIFICATION: II. COMPLICATIONS: None. DESCRIPTION OF PROCEDURE: Written informed consent was obtained, the abdomen was marked with indelible ink. Preoperative antibiotics were administered. The patient was taken to the operating room and placed in the supine position. Sequential compression devices, Gutierrez catheter and a nasogastric tube were inserted after general anesthesia was administered. The anesthesia then proceeded to place a left radial artery blood pressure monitor catheter as well as a right internal jugular triple lumen catheter. Please see their separate dictated notes. The abdomen was prepped and draped in usual sterile fashion. Time-out verification was completed. Initially, a vertical incision was made just above the umbilicus in the midline and a 12 mm blunt port was inserted. The abdomen was insufflated to 15 mmHg. There is no obvious odor or significant amount of intraperitoneal fluid noted. Under direct vision, a 5 mm port was placed in the left upper abdominal wall and a second 5 mm port was placed in the left lower abdominal wall. The liver was identified and it was mentioned above, appeared to be viable with some micronodularity to it. The gall-bladder was normal. The stomach was normal. There was no evidence of purulent peritonitis; however, there was some serosanguineous fluid mainly in the pelvis. I was able to evaluate most of the colon with the scope and it appeared to be unremarkable. The small bowel was identified in the terminal ileum. This was collapsed, viable, and I was able to run this backward, and there was noted to be 2 areas of patchy necrotic small bowel mainly in the proximal to mid portion of small bowel about 2 to 3 feet apart. There was no evidence of perforation and there was no evidence of edema in the bowel wall to suggest a venous thrombotic process. With this in mind, I felt that the small bowel resection was indicated and thus proceeded with an open laparotomy with a midline incision centered around the umbilicus. The small bowel was run from ligament of Treitz and once again, the similar findings of about 12 to 14 inches of patchy necrotic area, fairly discrete. The remainder of the small bowel appeared to be viable although somewhat distally was a little bit more ill-perfused suggestive more of a low flow state. The bowel on either side of both areas was then divided with a CHAVEZ stapler. The mesentery was divided with the handheld LigaSure device. Both the specimens were then removed and sent together and labeled as such in formalin to pathology. Hemostasis was assured. We then evaluated the retroperitoneal aorta. This was a hard calcified small vessel but had pulses all the way down into the iliac and there were strong palpable femoral pulses. I was not able to identify a palpable superior mesenteric artery, however. The mesenteric vessel were heavily calcified. With this in mind, planned to return for a second-look laparotomy with further resuscitation and intensive care management with plans for reanastomosis depending on her clinical course in the next 24 to 48 hours, a single sterile drape was enfolded within a Vi-Drape and placed intra-abdominally underneath the fascia to cover the bowel. I then placed moist Kerlix dressing over this covered with a #10 FRANKIE drain and then covered this with a gauze as well as another drape and sealed this to the abdominal wall with an enlarged Vi-Drape. The patient tolerated the procedure well and was taken to the intensive care unit intubated, but in stable condition. [id number]/[facility] #: [id number] INNA
[2016-04-11] MEDS: Metoprolol Tartrate IV* 1 MG/ML 5 ML VIAL IV SCH ×5 (03:52→22:09)
[2016-04-11 05:24] LABS: Hematocrit 38 % (35-47); Hemoglobin 11.7 g/dl (12.0-16.0); Mean Corpuscular HGB Conc 31 g/dl (31-36); Mean Corpuscular Hemoglobin 25 pg (27-31); Mean Corpuscular Volume 81 fL (80-97); Mean Platelet Volume 8 um3 (7.4-10.4); Red Blood Count 4.71 10^6/ul (4.0-5.4); Red Cell Distribution Width 19 % (10.5-15); White Blood Count 8.8 10^3/ul (3.5-10.8)
[2016-04-11 05:34] LABS: Comments Flag Yes
[2016-04-11] MEDS: Propofol* 100 ML IV SCH ×2 (05:36→16:48)
[2016-04-11] MEDS ORDERED: Hydrocortisone INJ* 100 MG VIAL IV SCH (07:13)
--- NOTE | 2016-04-11 07:56 | RAD ---
INDICATION: Respiratory failure, one day postop for ischemic bowel. COMPARISON: Comparison is made with a prior study from April 10, 2016. TECHNIQUE: A portable view of the chest was obtained. FINDINGS: The patient is status post coronary artery bypass surgery. The heart is within normal limits in size. There is a dual-chamber transvenous pacemaker present. There is an endotracheal tube present which projects over the midline. The catheter tip is at the level of the clavicular heads. There is a central venous catheter present on the right side. The catheter tip projects over the superior vena cava. There is a nasogastric tube present. The catheter tip projects over the stomach. The lungs are clear. No pleural effusion is seen. There is a small amount of free intraperitoneal air. IMPRESSION: 1. SMALL AMOUNT OF FREE INTRAPERITONEAL AIR AIR CONSISTENT WITH THE PATIENT'S RECENT SURGERY. 2. THE LUNGS ARE CLEAR.
--- NOTE | 2016-04-11 08:17 | PN ---
Progress Note - Progress Note Note: CCM Progress Note Remains sedated on vent with Propofol...will arouse with stimulation and focus gaze Plan at present is to maintain sedate on vent with planned return to OR tomorrow for 2nd look and hopefully re-establish bowel continuity SBP 127 HR 87 SR on monitor CVP 1 UO 1075 ml APV/CMV FiO2 35 PEEP 5 Freq(total) 17 TV 450 Skin Lt knee with broad ecchymosis, no diaphoresis, no cyanosis Sclerae anicteric, pupils equal Oral ETT and GT Oral mucosa pink Rt IJ TLC in place Chest with old healed sternotomy scar, upper Lt chest with prominent subcutaneous generator (no surrounding or overlying soft tissue) Lungs with bilateral BS, no wheezes Cor RRR no rub, no murmur Abd less protuberant, softer than ytdy edwards Ext no edema, much loose skin tissue, little solid muscle mass underneath, (+) SCDs Lt Radial A-line WBC 8.8 Hgb 11.7 Plt 360 CXR no PVC or confluent infiltrates ETT in place, GT in stomach, central live in place, old sternal wires, free air under diaphragms (as expected post-op) IMP: Ischemic Bowel s/p Laparotomy with small bowel resection (x2) returned from OR intubated and mechanically ventilated with open abdomen Currently mildly sedated with Propofol gtt with no plans to wean from vent as plan is for 2nd look surgery tomorrow Hx Cardiomyopathy with both diastolic and systolic CHF and with AICD...no pulmonary edema at this time Hx COPD...no bronchospasm Hx CAD s/p CABG Appears to have chronic protein calorie malnutrition...to begin to address nutrition Saturday (after 2nd look surgery) Hyponatremia...better Prerenal azotemia...suspect was hypovolemic...better Hyperglycemia...better Hx DVT PLAN/REC: Continue Propofol gtt Continue analgesics as ordered Full MV support for now Keep HOB>30 deg Suctioning PRN Acid Peptic Supp DVT prophyl Check ABG, BMP, Mg , and Phos IV hydration Trend CVP less frequently DuoNeb Q6 Lopressor 5 mg IV Q6 For now to hold on ACEI, Gabapentin, diuretic, and most all oral meds previously ordered Heparin gtt w/o boluses as per Dr Gary...hold 4-6 hrs prior to OR tomorrow Discussed with nurse and the rest of the ICU Multi-D team this AM T>35 min, CCM services rendered
[2016-04-11] MEDS: HYDROmorphone INJ* 1 MG/ML CARPUJECT SYRINGE IV SLOW PU PRN ×3 (08:26→23:41)
[2016-04-11 08:28] LABS: PCO2 Arterial 19 mmHg (35-45)
[2016-04-11 08:42] LABS: BUN/Creatinine Ratio 42.6 (8-20); Calcium 8.2 mg/dL (8.6-10.3); EGFR African American 127.8 (>60); EGFR Non-African American 99.4 (>60); Magnesium 2.1 mg/dL (1.9-2.7); Potassium 3.4 mmol/L (3.5-5.0)
[2016-04-11] MEDS: Piperac/Tazob 3.375 gm in NS* 3.375 GM/100 ML BAG IVPB SCH ×3 (08:54→23:25)
[2016-04-11] MEDS: Famotidine IV * 20 MG in NS 0.9% 100 ML* 100 ML IVPB SCH ×2 (08:55→20:11)
--- NOTE | 2016-04-11 09:08 | PN ---
Progress Note - Progress Note SOAP: Subjective: Sedated and appears comfortable on the ventilator. No acute problems reported over night. Objective: Temp Pulse Resp BP Pulse Ox 98.4 F 87 21 149/60 100 04/11/16 04:00 04/11/16 06:00 04/11/16 08:26 04/11/16 04:09 04/11/16 06:00 Intake & Output 04/09/16 04/10/16 04/11/16 04/12/16 06:59 06:59 06:59 06:59 Intake Total 1150 2111 Output Total 2075 Balance 1150 36 Weight 98 lb 119 lb 0.794 oz Intake: IV Fluids 1150 1624 NS (0.9%) 1210 ns 414 IVPB 320 NS (0.9%) 320 Medicated IV 167 CC - Propofol/Diprivan 167 Output: NG Tube Drainage Amount 1000 FRANKIE #1 0 Gutierrez 1075 PEX: Sedated but opens eyes to voice Lungs are CTA Abd dressing is intact with some serous drainage from inferior aspect. FRANKIE bulb not holding suctions Soft and slightly distended. Extremities without edema Laboratory Last Values WBC 8.8 10^3/ul (3.5-10.8) 04/11/16 05:10 RBC 4.71 10^6/ul (4.0-5.4) 04/11/16 05:10 Hgb 11.7 g/dl (12.0-16.0) L 04/11/16 05:10 Hct 38 % (35-47) 04/11/16 05:10 MCV 81 fL (80-97) 04/11/16 05:10 MCH 25 pg (27-31) L 04/11/16 05:10 MCHC 31 g/dl (31-36) 04/11/16 05:10 RDW 19 % (10.5-15) H 04/11/16 05:10 Plt Count 360 10^3/ul (150-450) 04/11/16 05:10 MPV 8 um3 (7.4-10.4) 04/11/16 05:10 Neut % (Auto) 88.9 % (38-83) H 04/11/16 05:10 Lymph % (Auto) 6.8 % (25-47) L 04/11/16 05:10 [place] % (Auto) 3.8 % (1-9) 04/11/16 05:10 Eos % (Auto) 0 % (0-6) 04/11/16 05:10 Baso % (Auto) 0.5 % (0-2) 04/11/16 05:10 Absolute Neuts (auto) 7.8 10^3/ul (1.5-7.7) H 04/11/16 05:10 Absolute Lymphs (auto) 0.6 10^3/ul (1.0-4.8) L 04/11/16 05:10 Absolute Monos (auto) 0.3 10^3/ul (0-0.8) 04/11/16 05:10 Absolute Eos (auto) 0 10^3/ul (0-0.6) 04/11/16 05:10 Absolute Basos (auto) 0 10^3/ul (0-0.2) 04/11/16 05:10 Absolute Nucleated RBC 0 10^3/ul 04/11/16 05:10 Nucleated RBC % 0 04/11/16 05:10 INR (Anticoag Therapy) 0.88 (0.89-1.11) L 04/10/16 06:05 APTT 42.8 seconds (26.0-36.3) H 04/11/16 08:05 ABG pH 7.44 (7.35-7.45) 04/11/16 08:20 ABG pCO2 19 mmHg (35-45) L 04/11/16 08:20 ABG pO2 193 mmHg (80-100) H 04/11/16 08:20 ABG HCO3 17.1 mmol/L (19-31) L 04/11/16 08:20 ABG O2 Saturation 100.5 % (95-98) H 04/11/16 08:20 ABG Base Excess -10.1 (-2.0-2.0) L 04/11/16 08:20 VBG pH 7.29 (7.33-7.43) L 04/10/16 11:53 VBG pCO2 59 mmHg (41-51) H 04/10/16 11:53 VBG pO2 40 mmHg (35-45) 04/10/16 11:53 VBG HCO3 24.7 mmol/L (24-28) 04/10/16 11:53 VBG O2 Saturation 72.2 % (70-80) 04/10/16 11:53 VBG Base Excess 0.6 (0-4) 04/10/16 11:53 Sodium 140 mmol/L (133-145) 04/11/16 08:10 Potassium 3.4 mmol/L (3.5-5.0) L 04/11/16 08:10 Chloride 107 mmol/L (101-111) 04/11/16 08:10 Carbon Dioxide 27 mmol/L (22-32) 04/11/16 08:10 Anion Gap 6 mmol/L (2-11) 04/11/16 08:10 BUN 26 mg/dL (6-24) H 04/11/16 08:10 Creatinine 0.61 mg/dL (0.51-0.95) 04/11/16 08:10 Est GFR ( Amer) 127.8 (>60) 04/11/16 08:10 Est GFR (Non-Af Amer) 99.4 (>60) 04/11/16 08:10 BUN/Creatinine Ratio 42.6 (8-20) H 04/11/16 08:10 Glucose 186 mg/dL (70-100) H 04/11/16 08:10 POC Glucose (mg/dL) 201 mg/dL (74-106) H 04/11/16 08:10 Lactic Acid 1.3 mmol/L (0.5-2.0) 04/10/16 11:22 Calcium 8.2 mg/dL (8.6-10.3) L 04/11/16 08:10 Phosphorus 2.5 mg/dL (2.5-5.0) 04/10/16 11:22 Magnesium 2.1 mg/dL (1.9-2.7) 04/11/16 08:10 Total Bilirubin 0.60 mg/dL (0.2-1.0) 04/09/16 22:25 AST 17 U/L (13-39) 04/09/16 22:25 ALT 20 U/L (7-52) 04/09/16 22:25 Alkaline Phosphatase 197 U/L (34-104) H 04/09/16 22:25 Troponin I 0.10 ng/mL (<0.04) H* 04/10/16 11:22 C-Reactive Protein 6.21 mg/L (< 5.00) H 04/09/16 22:25 Total Protein 7.7 g/dL (6.4-8.9) 04/09/16 22:25 Albumin 3.8 g/dL (3.2-5.2) 04/09/16 22:25 Globulin 3.9 g/dL (2-4) 04/09/16 22:25 Albumin/Globulin Ratio 1.0 (1-3) 04/09/16 22:25 Lipase 88 U/L (11.0-82.0) H 04/09/16 22:25 Assessment: POD# 1 s/p ex lap with two small bowel resections for ischemia--doing well Medical issues as per previous note She remains critically ill Plan: Plan return to OR tomorrow for second look laparatomy and anastomosis of small bowel Continue ventilator and sedation IV heparin drip IV antibiotics Will change outer abdominal dressing today. All discussed with family yesterday as per documentation.
[2016-04-11] MEDS: NS 0.9% 1000 ML* 1,000 ML IV SCH ×2 (09:38→16:48)
[2016-04-11] MEDS: KCL 20 MEQ/100 ML IVPREMIX* 20 MEQ/100 ML BAG IV SCH ×2 (10:32→12:12)
[2016-04-11] MEDS: Hydrocortisone INJ* 100 MG VIAL IV SCH ×3 (11:28→22:09)
[2016-04-11] MEDS ORDERED: fentaNYL* 50 MCG/ML 2 ML VIAL (100 MCG VIAL) ONE (13:09)
[2016-04-11] MEDS ORDERED: Fentanyl PCA (Continuous Infusion)* 20 ML PCA SCH (14:00)
[2016-04-11] MEDS: Heparin DRIP 25,000 UNITS(*) 25,000 UNITS/500 ML BAG IV SCH (22:22)
[2016-04-12] MEDS: NS 0.9% 1000 ML* 1,000 ML IV SCH (02:30)
[2016-04-12] MEDS: Propofol* 100 ML IV SCH ×2 (03:33→12:24)
[2016-04-12] MEDS: Insulin LISPRO* 1 UNITS UNIT SUBCUT SCH ×5 (03:50→22:11)
[2016-04-12] MEDS: Chlorhexidine MOUTHWASH 0.12%* 15 ML UDC TOPICAL SCH ×5 (03:57→22:02)
[2016-04-12] MEDS: Hydrocortisone INJ* 100 MG VIAL IV SCH ×4 (04:03→22:02)
[2016-04-12] MEDS: Metoprolol Tartrate IV* 1 MG/ML 5 ML VIAL IV SCH ×4 (04:03→23:13)
[2016-04-12] MEDS: HYDROmorphone INJ* 1 MG/ML CARPUJECT SYRINGE IV SLOW PU PRN ×2 (04:14→10:39)
[2016-04-12 04:47] LABS: Hematocrit 33 % (35-47); Mean Corpuscular HGB Conc 31 g/dl (31-36); Mean Corpuscular Hemoglobin 25 pg (27-31); Mean Corpuscular Volume 83 fL (80-97); Mean Platelet Volume 9 um3 (7.4-10.4); Red Blood Count 3.97 10^6/ul (4.0-5.4); Red Cell Distribution Width 19 % (10.5-15); White Blood Count 8.6 10^3/ul (3.5-10.8)
[2016-04-12] MEDS ORDERED: Buffered Lidocaine 1% SYR 3ML* 3 ML/SYR SYRINGE INTRADERM ONE (06:00)
[2016-04-12 06:09] LABS: Hematocrit 31 % (35-47); Hemoglobin 9.4 g/dl (12.0-16.0); Mean Corpuscular HGB Conc 31 g/dl (31-36); Mean Corpuscular Hemoglobin 25 pg (27-31); Mean Corpuscular Volume 82 fL (80-97); Mean Platelet Volume 8 um3 (7.4-10.4); Red Blood Count 3.76 10^6/ul (4.0-5.4); Red Cell Distribution Width 19 % (10.5-15); White Blood Count 8.3 10^3/ul (3.5-10.8)
[2016-04-12] MEDS: Piperac/Tazob 3.375 gm in NS* 3.375 GM/100 ML BAG IVPB SCH ×3 (07:29→23:12)
--- NOTE | 2016-04-12 07:33 | PN ---
Progress Note - Progress Note SOAP: Subjective: Nurses note some bleeding around the dressing started about MN last night. Dressing was reinforced. I was called 5 AM and discontinued the heparin drip. She remains sedated and appears comfortable on the ventilator. Objective: Temp Pulse Resp BP Pulse Ox 97.0 F 70 16 117/49 100 04/12/16 03:23 04/12/16 06:00 04/12/16 06:00 04/11/16 20:35 04/12/16 06:00 Intake & Output 04/10/16 04/11/16 04/12/16 04/13/16 06:59 06:59 06:59 06:59 Intake Total 1150 2111 4326.6 Output Total 2075 1455 Balance 1150 36 2871.6 Weight 98 lb 119 lb 0.794 oz 124 lb 8.979 oz Intake: IV Fluids 1150 1624 1688 NS (0.9%) 1210 1688 ns 414 IVPB 320 1788 NS (0.9%) 320 1788 Medicated IV 167 575.6 CC - Propofol/Diprivan 167 210.6 Heparin 365 Heparin 275 Output: NG Tube Drainage Amount 1000 180 G Tube 350 FRANKIE #1 0 0 Gutierrez 1075 925 PEX: Comfortable, sedated Lungs are CTA Abd is soft and slightly distended. The dressing is intact and there is some clot and evidence of sanguinous drainage on the right lower abdomen under the dressing with some leakage into the groin area. Clot is present and no evidence of active bleeding Extremities without edema Laboratory Results - last 24 hr 04/11/16 04/11/16 04/11/16 08:05 08:10 08:10 WBC RBC Hgb Hct MCV MCH MCHC RDW Plt Count MPV Neut % (Auto) Lymph % (Auto) [place] % (Auto) Eos % (Auto) Baso % (Auto) Absolute Neuts (auto) Absolute Lymphs (auto) Absolute Monos (auto) Absolute Eos (auto) Absolute Basos (auto) Absolute Nucleated RBC Nucleated RBC % APTT 42.8 H ABG pH ABG pCO2 ABG pO2 ABG HCO3 ABG O2 Saturation ABG Base Excess Sodium 140 Potassium 3.4 L Chloride 107 Carbon Dioxide 27 Anion Gap 6 BUN 26 H Creatinine 0.61 Est GFR ( Amer) 127.8 Est GFR (Non-Af Amer) 99.4 BUN/Creatinine Ratio 42.6 H Glucose 186 H POC Glucose (mg/dL) 201 H Calcium 8.2 L Magnesium 2.1 04/11/16 04/11/16 04/11/16 08:20 12:44 16:02 WBC RBC Hgb Hct MCV MCH MCHC RDW Plt Count MPV Neut % (Auto) Lymph % (Auto) [place] % (Auto) Eos % (Auto) Baso % (Auto) Absolute Neuts (auto) Absolute Lymphs (auto) Absolute Monos (auto) Absolute Eos (auto) Absolute Basos (auto) Absolute Nucleated RBC Nucleated RBC % APTT ABG pH 7.44 ABG pCO2 19 L ABG pO2 193 H ABG HCO3 17.1 L ABG O2 Saturation 100.5 H ABG Base Excess -10.1 L Sodium Potassium Chloride Carbon Dioxide Anion Gap BUN Creatinine Est GFR ( Amer) Est GFR (Non-Af Amer) BUN/Creatinine Ratio Glucose POC Glucose (mg/dL) 182 H 185 H Calcium Magnesium 04/11/16 04/11/16 04/11/16 17:00 19:51 23:30 WBC RBC Hgb Hct MCV MCH MCHC RDW Plt Count MPV Neut % (Auto) Lymph % (Auto) [place] % (Auto) Eos % (Auto) Baso % (Auto) Absolute Neuts (auto) Absolute Lymphs (auto) Absolute Monos (auto) Absolute Eos (auto) Absolute Basos (auto) Absolute Nucleated RBC Nucleated RBC % APTT 43.6 H ABG pH ABG pCO2 ABG pO2 ABG HCO3 ABG O2 Saturation ABG Base Excess Sodium Potassium Chloride Carbon Dioxide Anion Gap BUN Creatinine Est GFR ( Amer) Est GFR (Non-Af Amer) BUN/Creatinine Ratio Glucose POC Glucose (mg/dL) 181 H 193 H Calcium Magnesium 04/12/16 04/12/16 04/12/16 00:55 04:20 04:20 WBC 8.6 RBC 3.97 L Hgb 10.0 L Hct 33 L MCV 83 MCH 25 L MCHC 31 RDW 19 H Plt Count 323 MPV 9 Neut % (Auto) 90.1 H Lymph % (Auto) 6.8 L [place] % (Auto) 3.0 Eos % (Auto) 0 Baso % (Auto) 0.1 Absolute Neuts (auto) 7.8 H Absolute Lymphs (auto) 0.6 L Absolute Monos (auto) 0.3 Absolute Eos (auto) 0 Absolute Basos (auto) 0 Absolute Nucleated RBC 0 Nucleated RBC % 0 APTT 44.6 H ABG pH ABG pCO2 ABG pO2 ABG HCO3 ABG O2 Saturation ABG Base Excess Sodium Potassium Chloride Carbon Dioxide Anion Gap BUN 22 Creatinine Est GFR ( Amer) Est GFR (Non-Af Amer) BUN/Creatinine Ratio Glucose POC Glucose (mg/dL) Calcium Magnesium 04/12/16 06:00 WBC 8.3 RBC 3.76 L Hgb 9.4 L Hct 31 L MCV 82 MCH 25 L MCHC 31 RDW 19 H Plt Count 300 MPV 8 Neut % (Auto) Lymph % (Auto) [place] % (Auto) Eos % (Auto) Baso % (Auto) Absolute Neuts (auto) Absolute Lymphs (auto) Absolute Monos (auto) Absolute Eos (auto) Absolute Basos (auto) Absolute Nucleated RBC Nucleated RBC % APTT ABG pH ABG pCO2 ABG pO2 ABG HCO3 ABG O2 Saturation ABG Base Excess Sodium Potassium Chloride Carbon Dioxide Anion Gap BUN Creatinine Est GFR ( Amer) Est GFR (Non-Af Amer) BUN/Creatinine Ratio Glucose POC Glucose (mg/dL) Calcium Magnesium Assessment: POD# 2 s/p exlap with two small bowel resections for intestinal ischemia/ necrosis. Presently with open abdomen. Some bleeding from wound over night, does not appear to be significant and appears to have stopped. H/H down slightly and she remains hemodynamically stable with good urine output. Multiple medical problems as documented Plan: Heparin drip has been discontinued-no signs of active bleeding at present, will follow. Will recheck H/H at 9AM Continue present medical management. Plan return to operating room today for exploratory laparotomy for evaluation of remaining small bowel and plan anastomosis of small bowel to establish intestinal continuity and closure of abdominal wall. Procedure discussed with patient's nephew and sister in law who give consent and who are her health care agents. Risks/benefits and alternatives all explained and they wish to purse aggressive measures to continue care.
[2016-04-12] MEDS: Famotidine IV * 20 MG in NS 0.9% 100 ML* 100 ML IVPB SCH ×2 (08:07→22:03)
--- NOTE | 2016-04-12 08:40 | PN ---
Progress Note - Progress Note Note: [facility] Progress Note Remains sedated on vent with Propofol and Fentanyl...will arouse with moderate stimulation Wound re-dressed at bedside by Dr Gary Heparin stopped overnight as some bleeding noted on dressing Plan for return to OR tomorrow for 2nd look and hopefully re-establish bowel continuity later today SBP 132 HR 70 SR on monitor with occ VPC CVP 9 UO 925 ml I/Os (+) 2.8 liters APV/CMV FiO2 30 PEEP 5 Freq(total) 16 TV 400 Skin Lt knee with ecchymosis, no diaphoresis, no cyanosis Sclerae anicteric, pupils equal Oral ETT and GT (lightly bilious fluid) Oral mucosa pink Rt IJ TLC in place Chest with old healed sternotomy scar, upper Lt chest with prominent subcutaneous generator (no surrounding or overlying soft tissue) Lungs with bilateral BS, good air entry, no wheezes Cor RRR no rub, no murmur Abd less protuberant, mild dist, dressing in place edwards Ext no edema, much loose skin tissue, little solid muscle mass underneath, (+) SCDs, (+)mitts DPs 1(+) bilat Lt Radial A-line WBC 8.3 Hgb 9.4 Plt 300 IMP: Ischemic Bowel s/p Laparotomy with small bowel resection (x2) with open abdomen Currently mildly sedated with Propofol & Fentanyl gtts with no plans to wean from vent as plan is for 2nd look surgery later today Hx Cardiomyopathy with both diastolic and systolic CHF and with AICD Hx COPD...no bronchospasm Hx CAD s/p CABG Appears to have chronic protein calorie malnutrition...to begin to address nutrition Saturday (after 2nd look surgery Prerenal azotemia...suspect was hypovolemic...subsiding Hyperglycemia...better...was on Prednisone 40 mg daily at time of admission so is on Solucortef in moderate dosage Q 6 hrs Hx DVT PLAN/REC: Continue Propofol & Fentanyl gtts PRN analgesics as ordered if breakthrough pain noted Full MV support for now Keep HOB>30 deg Suctioning PRN Acid Peptic Supp DVT prophyl Check ABG, BMP, Mg , and Phos again today IV hydration...accept UO~30 ml/hr Trend CVP intermittently DuoNeb Q6 as needed Lopressor 2.5 mg IV Q6 Continue to hold on ACEI, Gabapentin, diuretic, and most all oral meds previously ordered Update CXR tomorrow Glycemic control with Insulin PRN Discussed with Dr Gary this AM T>35 min, CCM services rendered
[2016-04-12 09:13] LABS: FIO2 30
[2016-04-12 09:17] LABS: PCO2 Arterial 47 mmHg (35-45)
[2016-04-12 09:28] LABS: BUN/Creatinine Ratio 47.7 (8-20); EGFR African American 186.3 (>60); EGFR Non-African American 144.9 (>60); Magnesium 2.1 mg/dL (1.9-2.7); Phosphorus 2.1 mg/dL (2.5-5.0); Potassium 3.7 mmol/L (3.5-5.0)
[2016-04-12 09:51] LABS: Hematocrit 31 % (35-47); Hemoglobin 9.5 g/dl (12.0-16.0); Mean Corpuscular HGB Conc 31 g/dl (31-36); Mean Corpuscular Hemoglobin 25 pg (27-31); Mean Corpuscular Volume 82 fL (80-97); Mean Platelet Volume 8 um3 (7.4-10.4); Red Blood Count 3.78 10^6/ul (4.0-5.4); Red Cell Distribution Width 19 % (10.5-15); White Blood Count 8.8 10^3/ul (3.5-10.8)
[2016-04-12] MEDS ORDERED: Potassium Phosphate IV* 15 MMOLE in NS 0.9% 250 ML* 250 ML IVPB ONE (10:30)
[2016-04-12] MEDS ORDERED: fentaNYL* 50 MCG/ML 5 ML VIAL (250 MCG VIAL) ONE ×2 (18:01→19:59)
[2016-04-12] MEDS ORDERED: Midazolam* 1 MG/ML 5 ML VIAL (5 MG) ONE (18:02)
[2016-04-12] MEDS ORDERED: ceFOXitin 2 GM IVPREMIX* 2 GM/50 ML BAG IVPB ONE (18:09)
[2016-04-12] MEDS ORDERED: Rocuronium* 10 MG/ML VIAL ONE (18:43)
[2016-04-12] MEDS ORDERED: HYDROmorphone INJ* 1 MG/ML CARPUJECT SYRINGE ONE ×2 (19:07→19:50)
[2016-04-12] MEDS ORDERED: Propofol* 100 ML ONE (20:10)
--- NOTE | 2016-04-12 20:32 | SURGPN ---
Brief Operative Note - Surgery Procedures: OPERATIVE REPORT PRE-OP: Ischemic small bowel s/p resection X2 without renastomosis and open abdomen POST-OP: Same, no progression of ischemia-viable small bowel and colon PROCEDURE:Exploratory laparotomy with two anastomosis of small bowel and Antolin gastrostomy tube placement SURGEON: MD Cookie ANESTHESIA: General with Dr. Diaz ASST: Dr. Romero IVF: 700 cc crystalloid EBL: min SPECIMEN: none DRAIN: none WOUND CLASS: clean contaminated COMPLICATIONS: none TO ICU
[2016-04-12 22:41] LABS: PCO2 Arterial 39 mmHg (35-45)
[2016-04-13] MEDS: Insulin LISPRO* 1 UNITS UNIT SUBCUT SCH ×5 (01:02→17:48)
[2016-04-13] MEDS: Chlorhexidine MOUTHWASH 0.12%* 15 ML UDC TOPICAL SCH ×3 (01:03→08:06)
[2016-04-13] MEDS: Propofol* 100 ML IV SCH ×2 (01:21→06:02)
[2016-04-13] MEDS: HYDROmorphone INJ* 1 MG/ML CARPUJECT SYRINGE IV SLOW PU PRN (04:52)
[2016-04-13] MEDS: Metoprolol Tartrate IV* 1 MG/ML 5 ML VIAL IV SCH ×4 (04:57→22:16)
[2016-04-13] MEDS: Hydrocortisone INJ* 100 MG VIAL IV SCH ×4 (04:59→22:11)
[2016-04-13 05:44] LABS: Hematocrit 31 % (35-47); Hemoglobin 9.3 g/dl (12.0-16.0); Mean Corpuscular HGB Conc 30 g/dl (31-36); Mean Corpuscular Hemoglobin 25 pg (27-31); Mean Corpuscular Volume 82 fL (80-97); Mean Platelet Volume 8 um3 (7.4-10.4); Red Blood Count 3.77 10^6/ul (4.0-5.4); Red Cell Distribution Width 19 % (10.5-15); White Blood Count 7.2 10^3/ul (3.5-10.8)
--- NOTE | 2016-04-13 07:34 | RAD ---
INDICATION: Respiratory failure, CHF. COMPARISON: Comparison is made with a prior chest x-ray study from April 11, 2016. TECHNIQUE: A portable view of the chest was obtained. FINDINGS: The patient is status post coronary artery bypass surgery. There is a dual-chamber transvenous pacemaker present. The heart is mildly enlarged and unchanged. There is an endotracheal tube which projects over the midline. The catheter tip is at the level of the clavicular heads. There is a central line entering from the right jugular approach. The catheter tip projects over the region of the superior vena cava. The lungs are underinflated and grossly clear. No pleural effusion is seen. The previously noted free intraperitoneal air is not visualized under the right hemidiaphragm. IMPRESSION: POSTSURGICAL CHANGES, NO EVIDENCE FOR ACUTE FINDING.
[2016-04-13] MEDS ORDERED: Famotidine IV* 10 MG/ML 2 ML (20 mg) ONE (08:04)
[2016-04-13] MEDS: Famotidine IV * 20 MG in NS 0.9% 100 ML* 100 ML IVPB SCH ×2 (08:06→21:26)
[2016-04-13] MEDS: Piperac/Tazob 3.375 gm in NS* 3.375 GM/100 ML BAG IVPB SCH ×3 (08:06→23:38)
--- NOTE | 2016-04-13 09:46 | PN ---
Progress Note - Progress Note SOAP: Subjective: Comfortable on ventilator, remains sedated. No new problems overnight. Objective: Temp Pulse Resp BP Pulse Ox 97.8 F 70 18 125/51 99 04/13/16 07:42 04/13/16 09:00 04/13/16 09:27 04/13/16 09:00 04/13/16 09:00 Intake & Output 04/11/16 04/12/16 04/13/16 04/14/16 06:59 06:59 06:59 06:59 Intake Total 2111 4326.6 4035.6 Output Total 2075 1455 935 Balance 36 2871.6 3100.6 Weight 119 lb 0.794 oz 124 lb 8.979 oz 127 lb 13.89 oz Intake: IV Fluids 1624 1688 3150 LR 1247 NS (0.9%) 1210 1688 553 NS to Maintain IV Patency 1350 ns 414 IVPB 320 1788 500 NS (0.9%) 320 1788 500 Medicated IV 167 575.6 385.6 CC - Propofol/Diprivan 167 210.6 385.6 Heparin 365 Heparin 275 Output: NG Tube Drainage Amount 1000 180 G Tube 350 FRANKIE #1 0 0 10 Urine 725 Gutierrez 1075 925 200 PEX: COmfortable Lungs are CTA Abd dressing intact-no drainage, non-distended. Dressing not removed. G-tube intact Extremities without edema Laboratory Last Values WBC 7.2 10^3/ul (3.5-10.8) 04/13/16 05:25 RBC 3.77 10^6/ul (4.0-5.4) L 04/13/16 05:25 Hgb 9.3 g/dl (12.0-16.0) L 04/13/16 05:25 Hct 31 % (35-47) L 04/13/16 05:25 MCV 82 fL (80-97) 04/13/16 05:25 MCH 25 pg (27-31) L 04/13/16 05:25 MCHC 30 g/dl (31-36) L 04/13/16 05:25 RDW 19 % (10.5-15) H 04/13/16 05:25 Plt Count 317 10^3/ul (150-450) 04/13/16 05:25 MPV 8 um3 (7.4-10.4) 04/13/16 05:25 Neut % (Auto) 89.1 % (38-83) H 04/13/16 05:25 Lymph % (Auto) 7.1 % (25-47) L 04/13/16 05:25 [place] % (Auto) 3.2 % (1-9) 04/13/16 05:25 Eos % (Auto) 0.1 % (0-6) 04/13/16 05:25 Baso % (Auto) 0.5 % (0-2) 04/13/16 05:25 Absolute Neuts (auto) 6.4 10^3/ul (1.5-7.7) 04/13/16 05:25 Absolute Lymphs (auto) 0.5 10^3/ul (1.0-4.8) L 04/13/16 05:25 Absolute Monos (auto) 0.2 10^3/ul (0-0.8) 04/13/16 05:25 Absolute Eos (auto) 0 10^3/ul (0-0.6) 04/13/16 05:25 Absolute Basos (auto) 0 10^3/ul (0-0.2) 04/13/16 05:25 Absolute Nucleated RBC 0.01 10^3/ul 04/13/16 05:25 Nucleated RBC % 0.1 04/13/16 05:25 INR (Anticoag Therapy) 0.88 (0.89-1.11) L 04/10/16 06:05 APTT 44.6 seconds (26.0-36.3) H 04/12/16 00:55 Patient Temperature Not Reportable 04/12/16 22:34 ABG pH 7.40 (7.35-7.45) 04/12/16 22:34 ABG pCO2 39 mmHg (35-45) 04/12/16 22:34 ABG pO2 147 mmHg (80-100) H 04/12/16 22:34 ABG HCO3 24.5 mmol/L (19-31) 04/12/16 22:34 ABG O2 Saturation 98.6 % (95-98) H 04/12/16 22:34 ABG Base Excess -0.5 (-2.0-2.0) 04/12/16 22:34 VBG pH 7.29 (7.33-7.43) L 04/10/16 11:53 VBG pCO2 59 mmHg (41-51) H 04/10/16 11:53 VBG pO2 40 mmHg (35-45) 04/10/16 11:53 VBG HCO3 24.7 mmol/L (24-28) 04/10/16 11:53 VBG O2 Saturation 72.2 % (70-80) 04/10/16 11:53 VBG Base Excess 0.6 (0-4) 04/10/16 11:53 Respiration Rate Not Reportable 04/12/16 22:34 O2 Delivery Device vent 04/12/16 22:34 Ventilator Type Not Reportable 04/12/16 22:34 Vent Mode Not Reportable 04/12/16 22:34 FiO2 Not Reportable 04/12/16 22:34 Inspiratory Time Not Reportable 04/12/16 22:34 PEEP Not Reportable 04/12/16 22:34 Pressure Support Not Reportable 04/12/16 22:34 Pressure Control Not Reportable 04/12/16 22:34 EPAP Not Reportable 04/12/16 22:34 IPAP Not Reportable 04/12/16 22:34 BiPAP Not Reportable 04/12/16 22:34 Sodium 140 mmol/L (133-145) 04/12/16 09:00 Potassium 3.7 mmol/L (3.5-5.0) 04/12/16 09:00 Chloride 118 mmol/L (101-111) H 04/12/16 09:00 Carbon Dioxide 24 mmol/L (22-32) 04/12/16 09:00 Anion Gap -2 mmol/L (2-11) L 04/12/16 09:00 BUN 19 mg/dL (6-24) 04/13/16 05:25 Creatinine 0.44 mg/dL (0.51-0.95) L 04/12/16 09:00 Est GFR ( Amer) 186.3 (>60) 04/12/16 09:00 Est GFR (Non-Af Amer) 144.9 (>60) 04/12/16 09:00 BUN/Creatinine Ratio 47.7 (8-20) H 04/12/16 09:00 Glucose 167 mg/dL (70-100) H 04/12/16 09:00 POC Glucose (mg/dL) 165 mg/dL (74-106) H 04/13/16 08:09 Lactic Acid 1.3 mmol/L (0.5-2.0) 04/10/16 11:22 Calcium 8.0 mg/dL (8.6-10.3) L 04/12/16 09:00 Phosphorus 2.1 mg/dL (2.5-5.0) L 04/12/16 09:00 Magnesium 2.1 mg/dL (1.9-2.7) 04/12/16 09:00 Total Bilirubin 0.60 mg/dL (0.2-1.0) 04/09/16 22:25 AST 17 U/L (13-39) 04/09/16 22:25 ALT 20 U/L (7-52) 04/09/16 22:25 Alkaline Phosphatase 197 U/L (34-104) H 04/09/16 22:25 Troponin I 0.10 ng/mL (<0.04) H* 04/10/16 11:22 C-Reactive Protein 6.21 mg/L (< 5.00) H 04/09/16 22:25 Total Protein 7.7 g/dL (6.4-8.9) 04/09/16 22:25 Albumin 3.8 g/dL (3.2-5.2) 04/09/16 22:25 Globulin 3.9 g/dL (2-4) 04/09/16 22:25 Albumin/Globulin Ratio 1.0 (1-3) 04/09/16 22:25 Lipase 88 U/L (11.0-82.0) H 04/09/16 22:25 Blood Type O Positive 04/12/16 07:40 Antibody Screen Negative 04/12/16 07:40 Assessment: POD # 1/3 s/p ex lap for small bowel resections for ischemia/necrosis--two small bowel anastomoses and gastrostomy tube insertion, closure of abdominal wall. All remaining bowel was viable. Multiple medical issues as documented Plan: Wean ventilator Start TPN Sub q heparin PPI G-tube to suction IV abx for 48 more hours Discussed care with Dr. Phillips I also discussed findings at OR and procedure done last night with family (Nick ) on telephone after surgery.
[2016-04-13] MEDS ORDERED: fentaNYL PCA* 20 ML PCA SCH (10:54)
[2016-04-13 10:57] LABS: BUN/Creatinine Ratio 47.5 (8-20); Calcium 8.1 mg/dL (8.6-10.3); EGFR Non-African American 161.7 (>60); Globulin 2.7 g/dL (2-4); Magnesium 1.8 mg/dL (1.9-2.7); Phosphorus 2.2 mg/dL (2.5-5.0); Potassium 3.6 mmol/L (3.5-5.0); Total Bilirubin 0.4 mg/dL (0.2-1.0); Total Protein 4.7 g/dL (6.4-8.9)
[2016-04-13] MEDS ORDERED: Insulin GLARGINE(*) 1 UNITS UNIT SUBCUT SCH (12:00)
--- NOTE | 2016-04-13 12:22 | PN ---
Progress Note - Progress Note Note: CRITICAL CARE MEDICINE Date: 04/13/16 Time: 900 SUBJECTIVE: Patient seen and examined. slow to awaken. PHYSICAL EXAM: Vital Signs: Reviewed. stable. Neurologic: awakens to voice. slow to follow commands. HEENT: pupils equal. Sclera anicteric. Trachea midline. Cardiovascular: S1 S2 Respiratory: cta Abdomen: Soft, nt. dressing applied and g tube intact Extremities: Warm. Access: RIJ LABS: Reviewed. IMAGING: Reviewed. MEDICATIONS: Reviewed. ASSESSMENT: 60 F Ischemic sb s/p resection and second step re-anastomosis. Acute, nonthoracic, post op resp failure Acute pre-renal failure on admission, recovered Diabetes h/o CAD, ischemic cardiomyopathy s/p aicd TA on chronic steroids, now post stress dose steroids Malnutrition, mod degree PLAN: Neurologic: hold sedation; adjusted narcotics for pain control. needs to be more alert prior to liberation from vent. Cardiovascular: Perfusing. Has mild interstitial overload but keeping fluids today given 3rd spacing still but can dc later today when tpn starts. Respiratory: changed to cpap but with apnea due to sedation. wait and then can liberate when awake and alert Gastrointestinal: agree with tpn needs. place picc. sup with outpt H2 regimen. Renal/Metabolic: better. f/u lytes with tpn Infectious Disease: on zosyn per surg Hematology: stable. hsq Endocrine: taper back down on steroid and look to return to outpt dosing soon; start low dose lantus with tpn starting. could place in tpn if difficulties with control ensue Musculoskeletal: will need pt. Psych/Social: will look to update family. social work f/u Supportive and preventative care as ordered. SUP: H2 VTE prophylaxis: heparin Gutierrez catheter given critical illness, monitoring needs for accurate assessment of RAHEL and KDIGO criteria for critically ill patients and to avoid potential harms of urinary retention, skin breakdown/ulcers. Restraints: Reviewed and required this am. Disposition: ICU Code Status: Full Critical Care Time: 40min D/w Surgery Campbell Forrester DO
[2016-04-13] MEDS: Heparin VIAL(*) 5000 UNITS/ML VIAL (FIVE THOUSAND) SUBCUT SCH ×2 (14:02→21:28)
[2016-04-13] MEDS ORDERED: fentaNYL* 50 MCG/ML 2 ML VIAL (100 MCG VIAL) IV SLOW PU PRN (14:17)
[2016-04-13] MEDS: TPN* 24 HR with Dextrose 50% Water* 500 ML, Amino Acid Infusion 10%* 850 ML, Sterile Wa... TPN SCH ×13 (17:11)
--- NOTE | 2016-04-13 19:39 | OP ---
CC: [facility]; [facility] OPERATIVE REPORT: DATE OF OPERATION: 04/12/16 DATE OF : 51 SURGEON: Ramy Gary MD ASSOCIATE TEAM PHYSICIAN: Hiren Romero MD ANESTHESIOLOGIST: Pan Diaz MD ANESTHESIA: General. PRE-OP DIAGNOSES: Small bowel ischemia with recent exploratory laparotomy and resection of two portions of small bowel, with incontinuity of bowel and an open abdomen. POST-OP DIAGNOSES: Small bowel ischemia with recent exploratory laparotomy and resection of two portions of small bowel, with incontinuity of bowel and an open abdomen, all remaining small bowel and colon viable. OPERATIVE PROCEDURE: Exploratory laparotomy with two reanastomosis of small bowel and a Antolin gastrostomy tube insertion. INDICATIONS: Ms. Little Smith is a 60-year-old woman, who presented almost 48 hours ago with sudden onset of abdominal discomfort and noted to have large amount of portal venous air and small bowel pneumatosis. She was emergently taking to the operating room where she had 2 segments of small bowel removed that were gangrenous. Her abdomen was left open and the small bowel was not reanastomosed and she has been in the intensive care unit and stabilized nicely over the past 48 hours on the ventilator and sedated. She is now being taken to the operating room for a second-look laparotomy. Once again, consent was obtained from her nephew who is her healthcare proxy and the risks, but are not limited to, bleeding, infection, intraabdominal abscess formation, injury to peritoneal and retroperitoneal structures, anastomotic leak with abscess, sepsis possibly requiring reoperation, pulmonary failure, requiring long-term ventilator dependence, , renal failure were all explained. ESTIMATED BLOOD LOSS: Minimal. IV FLUIDS: 700 cc of crystalloid. SPECIMENS: None. WOUND CLASSIFICATION: Clean-contaminated. DRAINS: None. COMPLICATIONS: None. DISPOSITION: To ICU intubated and sedated. DESCRIPTION OF PROCEDURE: Written informed consent was obtained, preoperative antibiotics were administered, the abdomen was marked with indelible ink. The patient was taken to the operating room from the intensive care unit already intubated and sedated and placed in the supine position. Sequential compression devices and a Gutierrez catheter had already been inserted and a warming blanket was applied on the upper abdomen. The abdomen was prepped and draped in the usual sterile fashion and the abdominal wall dressing was removed just prior to this. Time-out verification was completed. The abdomen was entered. There was no evidence of foul odor, serous, significant fluid or purulence. All 4 quadrants of the abdomen were irrigated thoroughly until clear. Small bowel was evaluated. The proximal bowel from the ligament of Treitz to approximately 2 feet proximal to the first staple line was all viable and somewhat distended and fluid filled. The second portion of small bowel between the two staple lines, which was approximately 3-1 /2 to 4 feet, was also viable. The distal bowel, which included most of the distal jejunum and all of the ileum down to the cecum, was all viable and obviously completely collapsed. The entire colon with the viable liver and gallbladder once again appeared to be normal as was the stomach. At this point, the decision was made to proceed with reanastomosis of the small bowel; this was done in two separate anastomosis. Initially, the distal anastomosis was performed first and this was done using CHAVEZ 80 blue load to fashion ranv-gi-swha anastomosis and the common rent was then closed transversely with the blue load of a TA90 stapler. Corners and staple lines were oversewn with 3-0 silk sutures. The bowel appeared to be viable and the mesenteric rent was closed with a running 3-0 Polysorb suture. Next, the similar anastomosis was performed in the more proximal position with the nniv-iw-wnoy anastomosis and fashioned with the blue load of a CHAVEZ 80 stapler and the common rent was closed transversely with a TA90 blue load. Corners of the staple line and the junctional areas were reinforced with interrupted 3-0 silk sutures. The mesenteric rent was closed with a running 3- 0 Polysorb suture. Both anastomosis appeared to be watertight with no evidence of ischemia and this was placed back in the abdominal cavity. Next, a gastrostomy tube was inserted for postoperative management and possible tube feedings in anticipation of a prolonged recovery. A 20-Albanian Gutierrez catheter was inserted through the anterior abdominal wall in the left upper quadrant. An area on the anterior stomach midway about the mid body was then identified and a pursestring of 2-0 silk suture was fashioned. A gastrotomy tube was inserted in without difficulty and the balloon was blown up slightly. Four separate horizontal mattress sutures were used to adhere to suture the anterior wall of the stomach to the anterior abdominal wall, and the balloon was pulled up to the abdominal wall without difficulty. Additional saline was placed in the balloon, which was intact. A single 2-0 silk was used to suture the G-tube to the skin externally. All sponge, needle, and instrument counts were then reported as correct. The midline fascia and incision was closed with interrupted #1 Polysorb suture. The wound was left open and packed with a moist gauze and covered with the 4x4 gauze and ABD pads and taped securely. The patient tolerated the procedure well and was taken to the intensive care unit in stable condition. [id number]/[facility] #: [id number] INNA
[2016-04-14] MEDS: Insulin LISPRO* 1 UNITS UNIT SUBCUT SCH ×4 (00:31→18:19)
[2016-04-14] MEDS: HYDROmorphone INJ* 1 MG/ML CARPUJECT SYRINGE IV SLOW PU PRN ×3 (01:10→19:36)
[2016-04-14] MEDS: Metoprolol Tartrate IV* 1 MG/ML 5 ML VIAL IV SCH ×3 (05:30→18:17)
[2016-04-14] MEDS: Heparin VIAL(*) 5000 UNITS/ML VIAL (FIVE THOUSAND) SUBCUT SCH ×3 (05:39→22:10)
[2016-04-14] MEDS: Hydrocortisone INJ* 100 MG VIAL IV SCH (05:39)
[2016-04-14 05:50] LABS: Hematocrit 33 % (35-47); Hemoglobin 10.2 g/dl (12.0-16.0); Mean Corpuscular HGB Conc 31 g/dl (31-36); Mean Corpuscular Hemoglobin 25 pg (27-31); Mean Corpuscular Volume 82 fL (80-97); Mean Platelet Volume 8 um3 (7.4-10.4); Red Blood Count 4.02 10^6/ul (4.0-5.4); Red Cell Distribution Width 19 % (10.5-15)
[2016-04-14 06:02] LABS: Albumin 2.3 g/dL (3.2-5.2); BUN/Creatinine Ratio 45.5 (8-20); Calcium 8.5 mg/dL (8.6-10.3); EGFR African American 186.3 (>60); EGFR Non-African American 144.9 (>60); Globulin 3.2 g/dL (2-4); Magnesium 1.9 mg/dL (1.9-2.7); Phosphorus 2.2 mg/dL (2.5-5.0); Potassium 3.8 mmol/L (3.5-5.0); Total Bilirubin 0.6 mg/dL (0.2-1.0); Total Protein 5.5 g/dL (6.4-8.9)
[2016-04-14] MEDS: Piperac/Tazob 3.375 gm in NS* 3.375 GM/100 ML BAG IVPB SCH ×3 (07:43→23:40)
[2016-04-14] MEDS: Famotidine IV * 20 MG in NS 0.9% 100 ML* 100 ML IVPB SCH ×2 (09:27→20:38)
[2016-04-14] MEDS: Chlorhexidine MOUTHWASH 0.12%* 15 ML UDC TOPICAL SCH (09:31)
--- NOTE | 2016-04-14 09:43 | PN ---
Progress Note - Progress Note SOAP: Subjective: Extubated yesterday-no problems overnight She is confused but this appears to be her baseline Objective: Temp Pulse Resp BP Pulse Ox 98.3 F 99 23 160/71 95 04/14/16 07:40 04/14/16 08:00 04/14/16 08:00 04/14/16 08:00 04/14/16 08:00 Intake & Output 04/12/16 04/13/16 04/14/16 04/15/16 06:59 06:59 06:59 06:59 Intake Total 4326.6 4035.6 2131 147 Output Total 3902 024 0398 Balance 2871.6 3100.6 1106 147 Weight 124 lb 8.979 oz 127 lb 13.89 oz 133 lb 13.129 oz Intake: IV Fluids 1688 3150 848 26 LR 1247 798 NS (0.9%) 1688 553 NS to Maintain IV Patency 1350 50 26 IVPB 1788 500 443 121 ABX - ZOSYN 121 NS (0.9%) 1788 500 NS to Maintain IV Patency 443 Medicated IV 575.6 385.6 68 CC - Propofol/Diprivan 210.6 385.6 68 Heparin 365 Heparin 275 TPN/PPN 772 Oral 0 Output: NG Tube Drainage Amount 180 G Tube 350 FRANKIE #1 0 10 Urine 725 Gutierrez 147 658 5026 PEX: Awake and alert Oriented to name only. Lungs with some expiratory rhonchi, no rales or wheezing Abd is soft and slightly distended. Open wound is clean and pink, fascia is intact. Wound was repacked. Few bowel sounds are present. Extremities without edema Laboratory Last Values WBC 10.0 10^3/ul (3.5-10.8) 04/14/16 05:30 RBC 4.02 10^6/ul (4.0-5.4) 04/14/16 05:30 Hgb 10.2 g/dl (12.0-16.0) L 04/14/16 05:30 Hct 33 % (35-47) L 04/14/16 05:30 MCV 82 fL (80-97) 04/14/16 05:30 MCH 25 pg (27-31) L 04/14/16 05:30 MCHC 31 g/dl (31-36) 04/14/16 05:30 RDW 19 % (10.5-15) H 04/14/16 05:30 Plt Count 357 10^3/ul (150-450) 04/14/16 05:30 MPV 8 um3 (7.4-10.4) 04/14/16 05:30 Neut % (Auto) 87.9 % (38-83) H 04/14/16 05:30 Lymph % (Auto) 8.0 % (25-47) L 04/14/16 05:30 George % (Auto) 3.6 % (1-9) 04/14/16 05:30 Eos % (Auto) 0 % (0-6) 04/14/16 05:30 Baso % (Auto) 0.5 % (0-2) 04/14/16 05:30 Absolute Neuts (auto) 8.8 10^3/ul (1.5-7.7) H 04/14/16 05:30 Absolute Lymphs (auto) 0.8 10^3/ul (1.0-4.8) L 04/14/16 05:30 Absolute Monos (auto) 0.4 10^3/ul (0-0.8) 04/14/16 05:30 Absolute Eos (auto) 0 10^3/ul (0-0.6) 04/14/16 05:30 Absolute Basos (auto) 0 10^3/ul (0-0.2) 04/14/16 05:30 Absolute Nucleated RBC 0 10^3/ul 04/14/16 05:30 Nucleated RBC % 0 04/14/16 05:30 INR (Anticoag Therapy) 0.88 (0.89-1.11) L 04/10/16 06:05 APTT 44.6 seconds (26.0-36.3) H 04/12/16 00:55 Patient Temperature Not Reportable 04/12/16 22:34 ABG pH 7.40 (7.35-7.45) 04/12/16 22:34 ABG pCO2 39 mmHg (35-45) 04/12/16 22:34 ABG pO2 147 mmHg (80-100) H 04/12/16 22:34 ABG HCO3 24.5 mmol/L (19-31) 04/12/16 22:34 ABG O2 Saturation 98.6 % (95-98) H 04/12/16 22:34 ABG Base Excess -0.5 (-2.0-2.0) 04/12/16 22:34 VBG pH 7.29 (7.33-7.43) L 04/10/16 11:53 VBG pCO2 59 mmHg (41-51) H 04/10/16 11:53 VBG pO2 40 mmHg (35-45) 04/10/16 11:53 VBG HCO3 24.7 mmol/L (24-28) 04/10/16 11:53 VBG O2 Saturation 72.2 % (70-80) 04/10/16 11:53 VBG Base Excess 0.6 (0-4) 04/10/16 11:53 Respiration Rate Not Reportable 04/12/16 22:34 O2 Delivery Device vent 04/12/16 22:34 Ventilator Type Not Reportable 04/12/16 22:34 Vent Mode Not Reportable 04/12/16 22:34 FiO2 Not Reportable 04/12/16 22:34 Inspiratory Time Not Reportable 04/12/16 22:34 PEEP Not Reportable 04/12/16 22:34 Pressure Support Not Reportable 04/12/16 22:34 Pressure Control Not Reportable 04/12/16 22:34 EPAP Not Reportable 04/12/16 22:34 IPAP Not Reportable 04/12/16 22:34 BiPAP Not Reportable 04/12/16 22:34 Sodium 144 mmol/L (133-145) 04/14/16 05:30 Potassium 3.8 mmol/L (3.5-5.0) 04/14/16 05:30 Chloride 114 mmol/L (101-111) H 04/14/16 05:30 Carbon Dioxide 25 mmol/L (22-32) 04/14/16 05:30 Anion Gap 5 mmol/L (2-11) 04/14/16 05:30 BUN 20 mg/dL (6-24) 04/14/16 05:30 Creatinine 0.44 mg/dL (0.51-0.95) L 04/14/16 05:30 Est GFR ( Amer) 186.3 (>60) 04/14/16 05:30 Est GFR (Non-Af Amer) 144.9 (>60) 04/14/16 05:30 BUN/Creatinine Ratio 45.5 (8-20) H 04/14/16 05:30 Glucose 306 mg/dL (70-100) H 04/14/16 05:30 POC Glucose (mg/dL) 311 mg/dL (74-106) H 04/14/16 05:48 Lactic Acid 1.3 mmol/L (0.5-2.0) 04/10/16 11:22 Calcium 8.5 mg/dL (8.6-10.3) L 04/14/16 05:30 Phosphorus 2.2 mg/dL (2.5-5.0) L 04/14/16 05:30 Magnesium 1.9 mg/dL (1.9-2.7) 04/14/16 05:30 Total Bilirubin 0.60 mg/dL (0.2-1.0) 04/14/16 05:30 AST 10 U/L (13-39) L 04/14/16 05:30 ALT 10 U/L (7-52) 04/14/16 05:30 Alkaline Phosphatase 70 U/L (34-104) 04/14/16 05:30 Troponin I 0.10 ng/mL (<0.04) H* 04/10/16 11:22 C-Reactive Protein 6.21 mg/L (< 5.00) H 04/09/16 22:25 Total Protein 5.5 g/dL (6.4-8.9) L 04/14/16 05:30 Albumin 2.3 g/dL (3.2-5.2) L 04/14/16 05:30 Globulin 3.2 g/dL (2-4) 04/14/16 05:30 Albumin/Globulin Ratio 0.7 (1-3) L 04/14/16 05:30 Triglycerides 202 mg/dL 04/14/16 05:30 Lipase 88 U/L (11.0-82.0) H 04/09/16 22:25 Blood Type O Positive 04/12/16 07:40 Antibody Screen Negative 04/12/16 07:40 Assessment: POD # 2/4 s/p exlap with two small bowel resections for ischemia. post op ileus Multiple medical problems as documented. Plan: Continue TPN Increase activity PPI and subq heparin Ice chips only Wound care-may place wound vac in 1-2 days. Not certain on eligibility for transfer to floor--mental status will be issue, nursing concerns. D/C antibiotics after last dose today.
[2016-04-14] MEDS: Enalaprilat IV* 1.25 MG/ML 1 ML VIAL (1.25 MG) IV PRN ×2 (10:08→16:49)
--- NOTE | 2016-04-14 10:40 | PN ---
Progress Note - Progress Note Note: CRITICAL CARE MEDICINE Date: 04/14/16 Time: 900 SUBJECTIVE: Patient seen and examined. up into chair. pleasant. demented. asking to get up and walk and to go home PHYSICAL EXAM: Vital Signs: Reviewed. stable. Neurologic: communication impaired by dementia but otherwise talkative and nonfocal HEENT: pupils equal. Sclera anicteric. Cardiovascular: S1 S2 Respiratory: cta Abdomen: Soft, nt. dressing applied and g tube intact Extremities: Warm. Access: PICC LABS: Reviewed. IMAGING: Reviewed. MEDICATIONS: Reviewed. ASSESSMENT: 60 F Ischemic sb s/p resection and second step re-anastomosis. Acute, nonthoracic, post op resp failure Acute pre-renal failure on admission, recovered Diabetes h/o CAD, ischemic cardiomyopathy s/p aicd TA on chronic steroids, now post stress dose steroids Malnutrition, mod degree PLAN: Neurologic: denies pain. prn pain meds. dementia f/u Cardiovascular: Perfusing. Has mild interstitial fluid but is mobilizing. on tpn for fluid. BP up and bb adjusted. add prn acei iv Respiratory: doing well. IS as able. Gastrointestinal: continued tpn, can add H2 to tpn as well. Renal/Metabolic: better. f/u lytes with tpn Infectious Disease: zosyn completing today per surg Hematology: stable. hsq Endocrine: utilize iv solumedrol until able to resume prednsione Musculoskeletal: pt/ot Psych/Social: social work f/u Supportive and preventative care as ordered. SUP: H2 VTE prophylaxis: heparin Gutierrez catheter out soon Disposition: will work with nursing to sort appropriate dispo plan as her mental status may be towards baseline and need to see capabilities in accommodating on floor. Code Status: Full Critical Care Time: 30min FAmy Forrester DO
[2016-04-14] MEDS: methylPREDNISolone SOD 40 MG* 1 ML VIAL IV SCH (10:52)
[2016-04-14] MEDS ORDERED: Insulin GLARGINE(*) 1 UNITS UNIT SUBCUT SCH (12:00)
[2016-04-14] MEDS: Haloperidol INJ IV/IM* 5 MG/ML AMP IV SLOW PU PRN ×2 (12:34→22:32)
[2016-04-14] MEDS: TPN* 24 HR with Dextrose 50% Water* 500 ML, Amino Acid Infusion 10%* 850 ML, Sterile Wa... TPN SCH ×13 (16:49)
[2016-04-15] MEDS: Metoprolol Tartrate IV* 1 MG/ML 5 ML VIAL IV SCH ×4 (00:21→18:28)
[2016-04-15] MEDS: Insulin LISPRO* 1 UNITS UNIT SUBCUT SCH ×5 (00:29→23:58)
[2016-04-15] MEDS: HYDROmorphone INJ* 1 MG/ML CARPUJECT SYRINGE IV SLOW PU PRN ×2 (00:30→04:52)
[2016-04-15 05:43] LABS: Albumin 2.5 g/dL (3.2-5.2); EGFR African American 168.5 (>60); Globulin 3.3 g/dL (2-4); Phosphorus 2.4 mg/dL (2.5-5.0); Potassium 3.8 mmol/L (3.5-5.0); Total Bilirubin 0.6 mg/dL (0.2-1.0); Total Protein 5.8 g/dL (6.4-8.9)
[2016-04-15] MEDS: Heparin VIAL(*) 5000 UNITS/ML VIAL (FIVE THOUSAND) SUBCUT SCH ×3 (05:44→21:47)
[2016-04-15] MEDS ORDERED: Famotidine IV* 10 MG/ML 2 ML (20 mg) ONE (08:32)
[2016-04-15] MEDS: Piperac/Tazob 3.375 gm in NS* 3.375 GM/100 ML BAG IVPB SCH (08:37)
[2016-04-15] MEDS: methylPREDNISolone SOD 40 MG* 1 ML VIAL IV SCH (08:39)
[2016-04-15] MEDS: Famotidine IV * 20 MG in NS 0.9% 100 ML* 100 ML IVPB SCH ×2 (08:39→21:46)
[2016-04-15] MEDS: Enalaprilat IV* 1.25 MG/ML 1 ML VIAL (1.25 MG) IV SCH ×3 (10:38→21:46)
--- NOTE | 2016-04-15 10:46 | PN ---
Progress Note - Progress Note Note: CRITICAL CARE MEDICINE Date: 04/15/16 Time: 1000 SUBJECTIVE: Patient seen and examined. pleasant night PHYSICAL EXAM: Vital Signs: Reviewed. stable. Neurologic: communication impaired by dementia but stable HEENT: pupils equal. Sclera anicteric. Cardiovascular: S1 S2 Respiratory: cta Abdomen: Soft, nt. dressing applied and g tube intact Extremities: Warm. Access: PICC LABS: Reviewed. IMAGING: Reviewed. MEDICATIONS: Reviewed. ASSESSMENT: 60 F Ischemic sb s/p resection and second step re-anastomosis. Acute, nonthoracic, post op resp failure Acute pre-renal failure on admission, recovered Diabetes h/o CAD, ischemic cardiomyopathy s/p aicd TA on chronic steroids, now post stress dose steroids Malnutrition, mod degree Dementia PLAN: Neurologic: denies pain. prn pain meds. dementia stable. oupt rx? Cardiovascular: Perfusing. Has mild interstitial fluid but stablizing. BP as is and atc vasotec. \ Respiratory: wean off O2. doing well. IS as able. Gastrointestinal: continued tpn. may need more water since she is still mobilizing, and will need to f/u glucose and perhaps back down on dextrose or add insulin to tpn if continuing longer. allow surgery to adjust as waiting on bowel fx. Renal/Metabolic: stable. f/u lytes Infectious Disease: zosyn completed Hematology: stable. hsq Endocrine: iv solumedrol until able to resume prednsione Musculoskeletal: pt/ot Psych/Social: social work f/u Supportive and preventative care as ordered. SUP: H2 VTE prophylaxis: heparin Gutierrez catheter out soon Disposition: to floor when nursing can facilitate appropriateness Code Status: Full Critical Care Time: 25min Campbell Forrester DO
--- NOTE | 2016-04-15 10:51 | PN ---
Progress Note - Progress Note SOAP: Subjective: She is a little calmer today-slept a little better No acute problems overnight Objective: Temp Pulse Resp BP Pulse Ox 97.9 F 34 21 168/77 84 04/15/16 07:23 04/15/16 10:00 04/15/16 10:00 04/15/16 10:00 04/15/16 10:00 Intake & Output 04/13/16 04/14/16 04/15/16 04/16/16 06:59 06:59 06:59 06:59 Intake Total 4035.6 2131 2143 Output Total 935 1025 1675 Balance 3100.6 1106 468 Weight 127 lb 13.89 oz 133 lb 13.129 oz 134 lb 4.184 oz Intake: IV Fluids 3150 848 84 LR 1247 798 NS (0.9%) 553 NS to Maintain IV Patency 1350 50 84 IVPB 500 443 641 ABX - ZOSYN 121 Famotidine 202 NS (0.9%) 500 NS to Maintain IV Patency 443 318 Medicated IV 385.6 68 CC - Propofol/Diprivan 385.6 68 TPN/PPN 772 1418 Oral 0 0 Output: G Tube 100 RFANKIE #1 10 Urine 725 Gutierrez 200 1025 1575 PEX: Awake and alert and remains oriented to name only Lungs are CTA Abd is soft and non-distended. Bowel sounds are present. Incision is clean and dry and the packing was changed. Extremities without edema Laboratory Last Values WBC 10.0 10^3/ul (3.5-10.8) 04/14/16 05:30 RBC 4.02 10^6/ul (4.0-5.4) 04/14/16 05:30 Hgb 10.2 g/dl (12.0-16.0) L 04/14/16 05:30 Hct 33 % (35-47) L 04/14/16 05:30 MCV 82 fL (80-97) 04/14/16 05:30 MCH 25 pg (27-31) L 04/14/16 05:30 MCHC 31 g/dl (31-36) 04/14/16 05:30 RDW 19 % (10.5-15) H 04/14/16 05:30 Plt Count 357 10^3/ul (150-450) 04/14/16 05:30 MPV 8 um3 (7.4-10.4) 04/14/16 05:30 Neut % (Auto) 87.9 % (38-83) H 04/14/16 05:30 Lymph % (Auto) 8.0 % (25-47) L 04/14/16 05:30 Stoddard % (Auto) 3.6 % (1-9) 04/14/16 05:30 Eos % (Auto) 0 % (0-6) 04/14/16 05:30 Baso % (Auto) 0.5 % (0-2) 04/14/16 05:30 Absolute Neuts (auto) 8.8 10^3/ul (1.5-7.7) H 04/14/16 05:30 Absolute Lymphs (auto) 0.8 10^3/ul (1.0-4.8) L 04/14/16 05:30 Absolute Monos (auto) 0.4 10^3/ul (0-0.8) 04/14/16 05:30 Absolute Eos (auto) 0 10^3/ul (0-0.6) 04/14/16 05:30 Absolute Basos (auto) 0 10^3/ul (0-0.2) 04/14/16 05:30 Absolute Nucleated RBC 0 10^3/ul 04/14/16 05:30 Nucleated RBC % 0 04/14/16 05:30 INR (Anticoag Therapy) 0.88 (0.89-1.11) L 04/10/16 06:05 APTT 44.6 seconds (26.0-36.3) H 04/12/16 00:55 Patient Temperature Not Reportable 04/12/16 22:34 ABG pH 7.40 (7.35-7.45) 04/12/16 22:34 ABG pCO2 39 mmHg (35-45) 04/12/16 22:34 ABG pO2 147 mmHg (80-100) H 04/12/16 22:34 ABG HCO3 24.5 mmol/L (19-31) 04/12/16 22:34 ABG O2 Saturation 98.6 % (95-98) H 04/12/16 22:34 ABG Base Excess -0.5 (-2.0-2.0) 04/12/16 22:34 VBG pH 7.29 (7.33-7.43) L 04/10/16 11:53 VBG pCO2 59 mmHg (41-51) H 04/10/16 11:53 VBG pO2 40 mmHg (35-45) 04/10/16 11:53 VBG HCO3 24.7 mmol/L (24-28) 04/10/16 11:53 VBG O2 Saturation 72.2 % (70-80) 04/10/16 11:53 VBG Base Excess 0.6 (0-4) 04/10/16 11:53 Respiration Rate Not Reportable 04/12/16 22:34 O2 Delivery Device vent 04/12/16 22:34 Ventilator Type Not Reportable 04/12/16 22:34 Vent Mode Not Reportable 04/12/16 22:34 FiO2 Not Reportable 04/12/16 22:34 Inspiratory Time Not Reportable 04/12/16 22:34 PEEP Not Reportable 04/12/16 22:34 Pressure Support Not Reportable 04/12/16 22:34 Pressure Control Not Reportable 04/12/16 22:34 EPAP Not Reportable 04/12/16 22:34 IPAP Not Reportable 04/12/16 22:34 BiPAP Not Reportable 04/12/16 22:34 Sodium 148 mmol/L (133-145) H 04/15/16 05:00 Potassium 3.8 mmol/L (3.5-5.0) 04/15/16 05:00 Chloride 115 mmol/L (101-111) H 04/15/16 05:00 Carbon Dioxide 26 mmol/L (22-32) 04/15/16 05:00 Anion Gap 7 mmol/L (2-11) 04/15/16 05:00 BUN 24 mg/dL (6-24) 04/15/16 05:00 Creatinine 0.48 mg/dL (0.51-0.95) L 04/15/16 05:00 Est GFR ( Amer) 168.5 (>60) 04/15/16 05:00 Est GFR (Non-Af Amer) 131.0 (>60) 04/15/16 05:00 BUN/Creatinine Ratio 50.0 (8-20) H 04/15/16 05:00 Glucose 323 mg/dL (70-100) H 04/15/16 05:00 POC Glucose (mg/dL) 352 mg/dL (74-106) H 04/15/16 05:49 Lactic Acid 1.3 mmol/L (0.5-2.0) 04/10/16 11:22 Calcium 9.0 mg/dL (8.6-10.3) 04/15/16 05:00 Phosphorus 2.4 mg/dL (2.5-5.0) L 04/15/16 05:00 Magnesium 2.0 mg/dL (1.9-2.7) 04/15/16 05:00 Total Bilirubin 0.60 mg/dL (0.2-1.0) 04/15/16 05:00 AST 14 U/L (13-39) 04/15/16 05:00 ALT 12 U/L (7-52) 04/15/16 05:00 Alkaline Phosphatase 77 U/L (34-104) 04/15/16 05:00 Troponin I 0.10 ng/mL (<0.04) H* 04/10/16 11:22 C-Reactive Protein 6.21 mg/L (< 5.00) H 04/09/16 22:25 Total Protein 5.8 g/dL (6.4-8.9) L 04/15/16 05:00 Albumin 2.5 g/dL (3.2-5.2) L 04/15/16 05:00 Globulin 3.3 g/dL (2-4) 04/15/16 05:00 Albumin/Globulin Ratio 0.8 (1-3) L 04/15/16 05:00 Triglycerides 152 mg/dL 04/15/16 05:00 Lipase 88 U/L (11.0-82.0) H 04/09/16 22:25 Blood Type O Positive 04/12/16 07:40 Antibody Screen Negative 04/12/16 07:40 Assessment: POD #3/5 s/p exlap with small bowel resections and gastrostomy tube insertion Multiple medical issues Mental status change-chronic Plan: Continue TPN Increase activity PPI and subq heparin Wound care Possible tx to [facility]
[2016-04-15] MEDS ORDERED: Insulin GLARGINE(*) 1 UNITS UNIT SUBCUT SCH (12:00)
[2016-04-15] MEDS: TPN* 24 HR with Dextrose 50% Water* 500 ML, Amino Acid Infusion 10%* 850 ML, Lipid Emul... TPN SCH ×13 (16:49)
[2016-04-15] MEDS: Haloperidol INJ IV/IM* 5 MG/ML AMP IV SLOW PU PRN (22:01)
[2016-04-16] MEDS: Metoprolol Tartrate IV* 1 MG/ML 5 ML VIAL IV SCH ×5 (00:06→20:21)
[2016-04-16] MEDS: HYDROmorphone INJ* 1 MG/ML CARPUJECT SYRINGE IV SLOW PU PRN ×3 (00:07→14:31)
[2016-04-16] MEDS: Enalaprilat IV* 1.25 MG/ML 1 ML VIAL (1.25 MG) IV SCH ×5 (04:00→21:31)
[2016-04-16] MEDS: Heparin VIAL(*) 5000 UNITS/ML VIAL (FIVE THOUSAND) SUBCUT SCH ×3 (05:23→21:29)
[2016-04-16] MEDS: Insulin LISPRO* 1 UNITS UNIT SUBCUT SCH ×3 (06:38→18:13)
[2016-04-16 06:57] LABS: BUN/Creatinine Ratio 56.8 (8-20); EGFR African American 186.3 (>60); EGFR Non-African American 144.9 (>60); Potassium 3.5 mmol/L (3.5-5.0)
--- NOTE | 2016-04-16 09:13 | PN ---
Progress Note - Progress Note Note: CRITICAL CARE MEDICINE Date: 04/16/16 Time: 800 SUBJECTIVE: Patient seen and examined. doing well PHYSICAL EXAM: Vital Signs: Reviewed. stable. Neurologic: communication impaired by dementia but stable HEENT: pupils equal. Sclera anicteric. Cardiovascular: S1 S2 Respiratory: cta Abdomen: Soft, nt. dressing applied and g tube intact Extremities: Warm. Access: PICC LABS: Reviewed. IMAGING: Reviewed. MEDICATIONS: Reviewed. ASSESSMENT: 60 F Ischemic sb s/p resection and second step re-anastomosis. Acute, nonthoracic, post op resp failure Acute pre-renal failure on admission, recovered Diabetes h/o CAD, ischemic cardiomyopathy s/p aicd TA on chronic steroids, now post stress dose steroids Malnutrition, mod degree Dementia PLAN: doing well. promote recovery phase. Waiting on bowel recovery for enteral nutrition in meantime continued tpn with adjustments Lantus adjusted and follow up BP well. Off O2 HSQ Ok for floor Code Status: Full Critical Care Time: 25min FAmy Forrester DO
--- NOTE | 2016-04-16 10:15 | PN ---
Progress Note - Progress Note SOAP: Subjective: Continues to improve Had several loose non-bloody BM's last night Without complaint Objective: Temp Pulse Resp BP Pulse Ox 99.3 F 70 17 133/69 91 04/16/16 07:49 04/16/16 08:00 04/16/16 08:00 04/16/16 08:00 04/16/16 08:00 Intake & Output 04/14/16 04/15/16 04/16/16 04/17/16 06:59 06:59 06:59 06:59 Intake Total 2131 2143 2461.7 Output Total 1025 1675 675 Balance 9702 883 5468.7 Weight 133 lb 13.129 oz 134 lb 4.184 oz 130 lb 11.746 oz Intake: IV Fluids 848 84 361.7 Famotidine 88 LR 798 NS to Maintain IV Patency 50 84 273.7 IVPB 443 641 82 ABX - ZOSYN 121 Famotidine 202 NS to Maintain IV Patency 443 318 Medicated IV 68 CC - Propofol/Diprivan 68 TPN/PPN 772 1418 1843 Oral 0 0 175 Output: G Tube 100 75 Urine 150 Gutierrez 1025 1575 450 Other: Estimated Stool Amount Medium PEX: Comfortable--oriented only to person, no change Lungs are CTA Abd is soft and non-distended. Incision is clean and pink and was re-packed. Bowel sounds are present and normoactive Extremities without edema Laboratory Last Values WBC 10.0 10^3/ul (3.5-10.8) 04/14/16 05:30 RBC 4.02 10^6/ul (4.0-5.4) 04/14/16 05:30 Hgb 10.2 g/dl (12.0-16.0) L 04/14/16 05:30 Hct 33 % (35-47) L 04/14/16 05:30 MCV 82 fL (80-97) 04/14/16 05:30 MCH 25 pg (27-31) L 04/14/16 05:30 MCHC 31 g/dl (31-36) 04/14/16 05:30 RDW 19 % (10.5-15) H 04/14/16 05:30 Plt Count 357 10^3/ul (150-450) 04/14/16 05:30 MPV 8 um3 (7.4-10.4) 04/14/16 05:30 Neut % (Auto) 87.9 % (38-83) H 04/14/16 05:30 Lymph % (Auto) 8.0 % (25-47) L 04/14/16 05:30 [place] % (Auto) 3.6 % (1-9) 04/14/16 05:30 Eos % (Auto) 0 % (0-6) 04/14/16 05:30 Baso % (Auto) 0.5 % (0-2) 04/14/16 05:30 Absolute Neuts (auto) 8.8 10^3/ul (1.5-7.7) H 04/14/16 05:30 Absolute Lymphs (auto) 0.8 10^3/ul (1.0-4.8) L 04/14/16 05:30 Absolute Monos (auto) 0.4 10^3/ul (0-0.8) 04/14/16 05:30 Absolute Eos (auto) 0 10^3/ul (0-0.6) 04/14/16 05:30 Absolute Basos (auto) 0 10^3/ul (0-0.2) 04/14/16 05:30 Absolute Nucleated RBC 0 10^3/ul 04/14/16 05:30 Nucleated RBC % 0 04/14/16 05:30 INR (Anticoag Therapy) 0.88 (0.89-1.11) L 04/10/16 06:05 APTT 44.6 seconds (26.0-36.3) H 04/12/16 00:55 Patient Temperature Not Reportable 04/12/16 22:34 ABG pH 7.40 (7.35-7.45) 04/12/16 22:34 ABG pCO2 39 mmHg (35-45) 04/12/16 22:34 ABG pO2 147 mmHg (80-100) H 04/12/16 22:34 ABG HCO3 24.5 mmol/L (19-31) 04/12/16 22:34 ABG O2 Saturation 98.6 % (95-98) H 04/12/16 22:34 ABG Base Excess -0.5 (-2.0-2.0) 04/12/16 22:34 VBG pH 7.29 (7.33-7.43) L 04/10/16 11:53 VBG pCO2 59 mmHg (41-51) H 04/10/16 11:53 VBG pO2 40 mmHg (35-45) 04/10/16 11:53 VBG HCO3 24.7 mmol/L (24-28) 04/10/16 11:53 VBG O2 Saturation 72.2 % (70-80) 04/10/16 11:53 VBG Base Excess 0.6 (0-4) 04/10/16 11:53 Respiration Rate Not Reportable 04/12/16 22:34 O2 Delivery Device vent 04/12/16 22:34 Ventilator Type Not Reportable 04/12/16 22:34 Vent Mode Not Reportable 04/12/16 22:34 FiO2 Not Reportable 04/12/16 22:34 Inspiratory Time Not Reportable 04/12/16 22:34 PEEP Not Reportable 04/12/16 22:34 Pressure Support Not Reportable 04/12/16 22:34 Pressure Control Not Reportable 04/12/16 22:34 EPAP Not Reportable 04/12/16 22:34 IPAP Not Reportable 04/12/16 22:34 BiPAP Not Reportable 04/12/16 22:34 Sodium 151 mmol/L (133-145) H 04/16/16 06:15 Potassium 3.5 mmol/L (3.5-5.0) 04/16/16 06:15 Chloride 119 mmol/L (101-111) H 04/16/16 06:15 Carbon Dioxide 27 mmol/L (22-32) 04/16/16 06:15 Anion Gap 5 mmol/L (2-11) 04/16/16 06:15 BUN 25 mg/dL (6-24) H 04/16/16 06:15 Creatinine 0.44 mg/dL (0.51-0.95) L 04/16/16 06:15 Est GFR ( Amer) 186.3 (>60) 04/16/16 06:15 Est GFR (Non-Af Amer) 144.9 (>60) 04/16/16 06:15 BUN/Creatinine Ratio 56.8 (8-20) H 04/16/16 06:15 Glucose 78 mg/dL (70-100) 04/16/16 06:15 POC Glucose (mg/dL) 100 mg/dL (74-106) 04/16/16 06:22 Lactic Acid 1.3 mmol/L (0.5-2.0) 04/10/16 11:22 Calcium 9.0 mg/dL (8.6-10.3) 04/16/16 06:15 Phosphorus 2.4 mg/dL (2.5-5.0) L 04/15/16 05:00 Magnesium 2.0 mg/dL (1.9-2.7) 04/15/16 05:00 Total Bilirubin 0.60 mg/dL (0.2-1.0) 04/15/16 05:00 AST 14 U/L (13-39) 04/15/16 05:00 ALT 12 U/L (7-52) 04/15/16 05:00 Alkaline Phosphatase 77 U/L (34-104) 04/15/16 05:00 Troponin I 0.10 ng/mL (<0.04) H* 04/10/16 11:22 C-Reactive Protein 6.21 mg/L (< 5.00) H 04/09/16 22:25 Total Protein 5.8 g/dL (6.4-8.9) L 04/15/16 05:00 Albumin 2.5 g/dL (3.2-5.2) L 04/15/16 05:00 Globulin 3.3 g/dL (2-4) 04/15/16 05:00 Albumin/Globulin Ratio 0.8 (1-3) L 04/15/16 05:00 Triglycerides 152 mg/dL 04/15/16 05:00 Lipase 88 U/L (11.0-82.0) H 04/09/16 22:25 Blood Type O Positive 04/12/16 07:40 Antibody Screen Negative 04/12/16 07:40 Assessment: S/P exlap for two small bowel resections secondary to acute ischemia Ileus is resolving Medical issues as documented Plan: Tx to [facility]SU Clamp g-tube Sips of clears Wound care-wound vac TPN -will begin to taper Increase activity
[2016-04-16] MEDS ORDERED: Famotidine IV* 10 MG/ML 2 ML (20 mg) ONE (10:19)
[2016-04-16] MEDS: Famotidine IV * 20 MG in NS 0.9% 100 ML* 100 ML IVPB SCH ×2 (10:39→20:27)
[2016-04-16] MEDS: methylPREDNISolone SOD 40 MG* 1 ML VIAL IV SCH (10:39)
[2016-04-16] MEDS: Insulin GLARGINE(*) 1 UNITS UNIT SUBCUT SCH (12:21)
[2016-04-16] MEDS: TPN* 24 HR with Dextrose 50% Water* 500 ML, Amino Acid Infusion 10%* 850 ML, Lipid Emul... TPN SCH ×13 (18:13)
[2016-04-16] MEDS: Haloperidol INJ IV/IM* 5 MG/ML AMP IV SLOW PU PRN (22:56)
[2016-04-17] MEDS: Insulin LISPRO* 1 UNITS UNIT SUBCUT SCH ×5 (00:05→21:08)
[2016-04-17] MEDS: HYDROmorphone INJ* 1 MG/ML CARPUJECT SYRINGE IV SLOW PU PRN (00:23)
[2016-04-17] MEDS: Metoprolol Tartrate IV* 1 MG/ML 5 ML VIAL IV SCH ×4 (01:59→20:02)
[2016-04-17] MEDS: Enalaprilat IV* 1.25 MG/ML 1 ML VIAL (1.25 MG) IV SCH ×4 (03:52→20:58)
[2016-04-17 05:34] LABS: Albumin 2.6 g/dL (3.2-5.2); BUN/Creatinine Ratio 55.8 (8-20); Calcium 9.2 mg/dL (8.6-10.3); EGFR African American 153.7 (>60); EGFR Non-African American 119.5 (>60); Globulin 2.9 g/dL (2-4); Magnesium 1.8 mg/dL (1.9-2.7); Potassium 4.1 mmol/L (3.5-5.0); Total Bilirubin 0.8 mg/dL (0.2-1.0); Total Protein 5.5 g/dL (6.4-8.9)
[2016-04-17] MEDS: Heparin VIAL(*) 5000 UNITS/ML VIAL (FIVE THOUSAND) SUBCUT SCH ×3 (05:40→22:13)
[2016-04-17] MEDS ORDERED: Famotidine IV* 10 MG/ML 2 ML (20 mg) ONE (08:28)
[2016-04-17] MEDS: Famotidine IV* 10 MG/ML 2 ML (20 mg) IV SLOW PU SCH ×2 (08:37→20:54)
[2016-04-17] MEDS: methylPREDNISolone SOD 40 MG* 1 ML VIAL IV SCH (08:37)
--- NOTE | 2016-04-17 09:11 | PN ---
Progress Note - Progress Note SOAP: Subjective: Wants to eat--she has had several bowel movements and is passing gas per the nurses. She tolerated clamping of g-tube Objective: Temp Pulse Resp BP Pulse Ox 98.4 F 89 26 141/60 89 04/17/16 08:32 04/17/16 08:39 04/17/16 08:39 04/17/16 08:32 04/17/16 08:39 Intake & Output 04/15/16 04/16/16 04/17/16 04/18/16 06:59 06:59 06:59 06:59 Intake Total 2143 2461.7 2277 Output Total 1675 675 450 Balance 468 1786.7 1827 Weight 134 lb 4.184 oz 130 lb 11.746 oz 133 lb 1.6 oz Intake: IV Fluids 84 361.7 144 Famotidine 88 NS to Maintain IV Patency 84 273.7 144 IVPB 641 82 ABX - ZOSYN 121 Famotidine 202 NS to Maintain IV Patency 318 TPN/PPN 1418 1843 1513 Oral 0 175 620 Output: G Tube 100 75 Urine 150 400 Gutierrez 1575 450 Liquid Stool 50 Other: Estimated Void Small # Bowel Movements 0 Estimated Stool Amount Medium Large PEX: Comfortable in chair Awake and alert--oriented to name only Lungs are CTA Abd is soft and non-distended; wound is open and clean. Bowel sounds are present throughout. Extremities without edema Laboratory Results - last 24 hr 04/16/16 04/16/16 04/16/16 12:00 17:59 23:59 Sodium Potassium Chloride Carbon Dioxide Anion Gap BUN Creatinine Est GFR ( Amer) Est GFR (Non-Af Amer) BUN/Creatinine Ratio Glucose POC Glucose (mg/dL) 117 H 93 158 H Calcium Phosphorus Magnesium Total Bilirubin AST ALT Alkaline Phosphatase Total Protein Albumin Globulin Albumin/Globulin Ratio Triglycerides 04/17/16 04/17/16 05:05 05:43 Sodium 141 D Potassium 4.1 Chloride 112 H Carbon Dioxide 23 Anion Gap 6 BUN 29 H Creatinine 0.52 Est GFR ( Amer) 153.7 Est GFR (Non-Af Amer) 119.5 BUN/Creatinine Ratio 55.8 H Glucose 85 POC Glucose (mg/dL) 109 H Calcium 9.2 Phosphorus 3.0 Magnesium 1.8 L Total Bilirubin 0.80 AST 45 H ALT 26 Alkaline Phosphatase 77 Total Protein 5.5 L Albumin 2.6 L Globulin 2.9 Albumin/Globulin Ratio 0.9 L Triglycerides 85 Assessment: S/P exlap X 2 for small bowel resection for acute ischemia Ileus-resolving DM Plan: Advance diet as tolerated-fulls to soft D/C TPN after this bag is complete Wound care Diabetes management per hospitalist Subq heparin D/C planning-will be ready for D/C next several days--she previously resided at [facility].
--- NOTE | 2016-04-17 11:24 | RAD ---
Indication: Shortness of breath, history of CHF. Single frontal view of the chest performed at 1050 hours was reviewed. Comparison is made with previous exam dated 04/13/2016. Cardiomegaly is noted. Pacemaker leads are in place. Interstitial edema consistent with CHF. Patient is status post transsternal thoracotomy. PICC line is in place with the tip in the superior vena cava. IMPRESSION: CARDIOMEGALY WITH INTERSTITIAL EDEMA CONSISTENT WITH CHF.
[2016-04-17] MEDS: Insulin GLARGINE(*) 1 UNITS UNIT SUBCUT SCH (12:27)
[2016-04-17] MEDS: traMADol TAB* 50 MG PO PRN ×2 (12:30→20:01)
[2016-04-17] MEDS: Furosemide IV* 10 MG/ML 2 ML VIAL (20 MG) IV SCH (16:32)
--- NOTE | 2016-04-17 16:37 | CONSULT ---
Subjective Date of Service: 04/17/16 Interval History: Seen and examined this AM Notified by nursing that pt tachypneic to 30 breaths per minute When seen by this author RR = 28. Pt denies SOB, CP, LH, N/V Notes she feels terrific. Pain well controlled. Review of Systems - Measurements Intake and Output: Intake and Output Last 24 Hours 04/15/16 04/16/16 04/17/16 04/18/16 11:59 11:59 11:59 11:59 Intake Total 1995 2461.7 2927 1210 Output Total 1675 725 400 Balance 321 1736.7 2527 1210 Weight 60.9 kg 59.3 kg 60.373 kg Intake: IV Fluids 58 361.7 144 Famotidine 88 NS to Maintain IV Patency 58 273.7 144 IVPB 520 82 Famotidine 202 NS to Maintain IV Patency 318 TPN/PPN 1418 1843 1513 Oral 0 175 1270 1210 Output: G Tube 100 75 Urine 150 400 Gutierrez 1575 450 Liquid Stool 50 Other: Estimated Void Medium Medium Date of Last Bowel 04/17/16 Movement # Bowel Movements 2 0 1 Estimated Stool Amount Small Large Medium # Voids 1 Objective Active Medications: Albuterol/Ipratropium (Duoneb Neb.Viola*) 1 neb INH Q6H PRN PRN Reason: SHORTNESS OF BREATH Last Admin: 04/17/16 08:37 Dose: 1 neb Dextrose (D50w Syringe 50 Ml*) 12.5 gm IV PUSH .FOR FS < 60 - SS PRN PRN Reason: FS < 60 Enalaprilat (Vasotec Iv*) 1.25 mg IV Q6H [facility] Last Admin: 04/17/16 10:49 Dose: 1.25 mg Famotidine (Pepcid Iv*) 20 mg IV SLOW PU BID [facility] Last Admin: 04/17/16 08:37 Dose: 20 mg Furosemide (Lasix Iv*) 20 mg IV DAILY [facility] Haloperidol Lactate (Haldol Inj Iv/Im*) 2.5 mg IV SLOW PU Q4H PRN PRN Reason: AGITATION Last Admin: 04/16/16 22:56 Dose: 2.5 mg Heparin Sodium (Porcine) (Heparin Vial(*)) 5,000 units SUBCUT Q8HR [facility] Last Admin: 04/17/16 14:52 Dose: 5,000 units Heparin Sodium (Porcine) (Heparin Flush Picc/Ml/Cvc(*)) 0 ml IV FLUSH 0600, 1800 [facility] PRN Reason: Protocol Last Admin: 04/17/16 05:44 Dose: Not Given Insulin Glargine (Lantus(*)) 45 units SUBCUT Q24H [facility] Last Admin: 04/17/16 12:27 Dose: 45 units Insulin Human Lispro (Humalog*) 0 units SUBCUT ACHS [facility] PRN Reason: Protocol Methylprednisolone Sodium Succinate (Solu-Medrol*) 40 mg IV DAILY [facility] Last Admin: 04/17/16 08:37 Dose: 40 mg Metoprolol Tartrate (Lopressor Iv*) 5 mg IV 0200,0800,1400,2000 [facility] Last Admin: 04/17/16 14:52 Dose: 5 mg Nitroglycerin (Nitroglycerin Tab 0.4 Mg*) 0.4 mg SL Q5M PRN PRN Reason: pain Ondansetron HCl (Zofran Inj*) 4 mg IV Q4H PRN PRN Reason: NAUSEA Tramadol HCl (Ultram*) 50 mg PO Q6H PRN PRN Reason: PAIN Last Admin: 04/17/16 12:30 Dose: 50 mg Vital Signs 04/16/16 04/16/16 04/17/16 20:00 20:25 00:03 Temperature 98.8 F 99.1 F Pulse Rate 76 78 Respiratory 16 16 16 Rate Blood Pressure 143/58 145/57 (mmHg) O2 Sat by Pulse 92 92 Oximetry 04/17/16 04/17/16 04/17/16 00:23 01:23 03:19 Temperature 98.1 F Pulse Rate 70 Respiratory 18 17 18 Rate Blood Pressure 118/65 (mmHg) O2 Sat by Pulse 93 Oximetry 04/17/16 04/17/16 04/17/16 08:00 08:32 08:39 Temperature 98.4 F Pulse Rate 70 89 Respiratory 28 28 26 Rate Blood Pressure 141/60 (mmHg) O2 Sat by Pulse 88 89 Oximetry 04/17/16 04/17/16 04/17/16 09:20 09:35 12:30 Temperature Pulse Rate 68 Respiratory 28 30 24 Rate Blood Pressure 131/54 (mmHg) O2 Sat by Pulse 92 Oximetry 04/17/16 04/17/16 04/17/16 13:31 13:35 16:05 Temperature 98.8 F Pulse Rate 72 69 Respiratory 36 28 16 Rate Blood Pressure 152/62 152/61 (mmHg) O2 Sat by Pulse 90 92 Oximetry Oxygen Devices in Use Now: Nasal Cannula Appearance: NAD Eyes: No Scleral Icterus, PERRLA Ears/Nose/Mouth/Throat: NL Teeth, Lips, Gums, Clear Oropharnyx, Mucous Membranes Moist Neck: NL Appearance and Movements; NL JVP, Trachea Midline Respiratory: Symmetrical Chest Expansion and Respiratory Effort, - - trace rales Cardiovascular: NL Sounds; No Murmurs; No JVD, RRR Abdominal: - - TTP, soft, ND Lymphatic: No Cervical Adenopathy Extremities: No Edema, No Clubbing, Cyanosis Neurological: - - AOx3 Result Diagrams: 04/14/16 05:30 04/17/16 05:05 Additional Lab and Data: Lab Results 04/09/16 04/09/16 04/09/16 Range/Units 22:25 22:25 22:25 WBC 10.4 (3.5-10.8) 10^3/ul RBC 5.60 H (4.0-5.4) 10^6/ul Hgb 14.2 (12.0-16.0) g/dl Hct 45 (35-47) % MCV 81 (80-97) fL MCH 25 L (27-31) pg MCHC 31 (31-36) g/dl RDW 18 H (10.5-15) % Plt Count 409 (150-450) 10^3/ul MPV 8 (7.4-10.4) um3 Neut % (Auto) 77.8 (38-83) % Lymph % (Auto) 12.2 L (25-47) % [place] % (Auto) 9.5 H (1-9) % Eos % (Auto) 0 (0-6) % Baso % (Auto) 0.5 (0-2) % Absolute Neuts (auto) 8.1 H (1.5-7.7) 10^3/ul Absolute Lymphs (auto) 1.3 (1.0-4.8) 10^3/ul Absolute Monos (auto) 1.0 H (0-0.8) 10^3/ul Absolute Eos (auto) 0 (0-0.6) 10^3/ul Absolute Basos (auto) 0 (0-0.2) 10^3/ul Absolute Nucleated RBC 0.01 10^3/ul Nucleated RBC % 0 Sodium 128 L (133-145) mmol/L Potassium 4.2 (3.5-5.0) mmol/L Chloride 92 L (101-111) mmol/L Carbon Dioxide 25 (22-32) mmol/L Anion Gap 11 (2-11) mmol/L BUN 50 H (6-24) mg/dL Creatinine 0.99 H (0.51-0.95) mg/dL Est GFR ( Amer) 73.1 (>60) Est GFR (Non-Af Amer) 56.8 (>60) BUN/Creatinine Ratio 50.5 H (8-20) Glucose 509 H* (70-100) mg/dL Lactic Acid 2.8 H* (0.5-2.0) mmol/L Calcium 9.5 (8.6-10.3) mg/dL Total Bilirubin 0.60 (0.2-1.0) mg/dL AST 17 (13-39) U/L ALT 20 (7-52) U/L Alkaline Phosphatase 197 H (34-104) U/L C-Reactive Protein 6.21 H (< 5.00) mg/L Total Protein 7.7 (6.4-8.9) g/dL Albumin 3.8 (3.2-5.2) g/dL Globulin 3.9 (2-4) g/dL Albumin/Globulin Ratio 1.0 (1-3) Lipase 88 H (11.0-82.0) U/L Microbiology and Other Data: Microbiology 04/10/16 13:20 Nasal Screen MRSA (PCR)(ODALYS) - Final Nasal Mrsa Negative Assessment/Plan - Billing 60 yo F h/o CHF, CAD, DM2, dementia, temporal arteritis, DVT 2014 p/w ischemic bowel s/p ex-lap for small bowel resection c/b ileus ileus - resolving, diet advanced per surgery SOB - CXR c/w acute combined systolic/diastolic heart failure - lasix IV - reevaluate in AM DM2- well controlled -c/w basal bolus insulin TA - c/w steroids. Taper on discharge Malnutrition - TPN finishing and diet advanced VTE PPX: HSQ Will continue to follow
[2016-04-18] MEDS: Metoprolol Tartrate IV* 1 MG/ML 5 ML VIAL IV SCH ×2 (01:54→08:29)
[2016-04-18] MEDS: Enalaprilat IV* 1.25 MG/ML 1 ML VIAL (1.25 MG) IV SCH ×2 (04:07→10:55)
[2016-04-18] MEDS: traMADol TAB* 50 MG PO PRN ×2 (04:11→11:15)
[2016-04-18] MEDS: Heparin VIAL(*) 5000 UNITS/ML VIAL (FIVE THOUSAND) SUBCUT SCH ×3 (05:26→21:32)
[2016-04-18 06:06] LABS: BUN/Creatinine Ratio 56.6 (8-20); Calcium 8.9 mg/dL (8.6-10.3); EGFR African American 150.3 (>60); EGFR Non-African American 116.9 (>60); Potassium 4.1 mmol/L (3.5-5.0)
[2016-04-18] MEDS: Dextrose 50% Syringe 50 ML* 25 GM/50 ML SYRINGE IV PUSH PRN ×2 (06:52→17:34)
[2016-04-18] MEDS: Insulin LISPRO* 1 UNITS UNIT SUBCUT SCH ×4 (07:56→21:22)
[2016-04-18] MEDS: Famotidine IV* 10 MG/ML 2 ML (20 mg) IV SLOW PU SCH (08:29)
[2016-04-18] MEDS: methylPREDNISolone SOD 40 MG* 1 ML VIAL IV SCH (08:29)
[2016-04-18] MEDS: Furosemide IV* 10 MG/ML 2 ML VIAL (20 MG) IV SCH (08:29)
[2016-04-18] MEDS ORDERED: Omeprazole CAP* 20 MG PO SCH (09:00)
--- NOTE | 2016-04-18 10:09 | PN ---
Progress Note - Progress Note SOAP: Subjective: She is without complaint today-no abdominal pain and appears to be tolerating full liquids. She wants some hot chocolate Having loose bowel movements Wound VAC was placed yesterday and she tolerated it well Objective: Temp Pulse Resp BP Pulse Ox 98.9 F 72 20 137/62 93 04/18/16 07:28 04/18/16 07:28 04/18/16 07:28 04/18/16 07:28 04/18/16 07:28 Intake & Output 04/16/16 04/17/16 04/18/16 04/19/16 06:59 06:59 06:59 06:59 Intake Total 2461.7 2277 3994 Output Total 675 450 0 Balance 1786.7 1827 3994 Weight 130 lb 11.746 oz 138 lb 12.8 oz Intake: IV Fluids 361.7 144 Famotidine 88 NS to Maintain IV Patency 273.7 144 IVPB 82 115 NS to Maintain IV Patency 115 TPN/PPN 1843 1513 839 Oral 352 389 3102 Output: G Tube 75 Urine 150 400 0 Gutierrez 450 Liquid Stool 50 Other: Estimated Void Small Medium Date of Last Bowel 04/17/16 Movement # Bowel Movements 0 1 Estimated Stool Amount Medium Large Small # Voids 2 PEX: Comfortable Lungs are Clear Abd is soft and non-distended. Bowel sounds are present and the wound VAC is in place. Wound yesterday was clean and pink with minimal granulation tissue formation. Extremities without edema Laboratory Results - last 24 hr 04/17/16 04/17/16 04/17/16 11:46 16:56 21:03 Sodium Potassium Chloride Carbon Dioxide Anion Gap BUN Creatinine Est GFR ( Amer) Est GFR (Non-Af Amer) BUN/Creatinine Ratio Glucose POC Glucose (mg/dL) 273 H 300 H 299 H Calcium 04/18/16 04/18/16 04/18/16 05:25 06:23 07:51 Sodium 137 Potassium 4.1 Chloride 108 Carbon Dioxide 22 Anion Gap 7 BUN 30 H Creatinine 0.53 Est GFR ( Amer) 150.3 Est GFR (Non-Af Amer) 116.9 BUN/Creatinine Ratio 56.6 H Glucose 44 L POC Glucose (mg/dL) 59 L 127 H Calcium 8.9 Assessment: S/P ex lap X 2 for small bowel resection X2 for acute intestinal ischemia Ileus is resolving Wound VAC in place Plan: Advance to soft diet Wound VAC PPI and sub q heparin. Plan d/c back to [facility] tomorrow if medically acceptable. Will discuss with Dr. Bush regarding switching IV meds back to oral route and DM and steroid management. Wound VAC at [facility] planned.
--- NOTE | 2016-04-18 11:02 | CONSULT ---
Subjective Date of Service: 04/18/16 Review of Systems - Measurements Intake and Output: Intake and Output Last 24 Hours 04/15/16 04/16/16 04/17/16 04/18/16 11:59 11:59 11:59 11:59 Intake Total 1995 2461.7 2927 3344 Output Total 1675 725 400 0 Balance 321 1736.7 2527 3344 Weight 60.9 kg 59.3 kg 60.373 kg 62.959 kg Intake: IV Fluids 58 361.7 144 Famotidine 88 NS to Maintain IV Patency 58 273.7 144 IVPB 520 82 115 Famotidine 202 NS to Maintain IV Patency 318 115 TPN/PPN 1418 1843 1513 839 Oral 0 175 1270 2390 Output: G Tube 100 75 Urine 150 400 0 Gutierrez 1575 450 Liquid Stool 50 Other: Estimated Void Medium Medium Date of Last Bowel 04/17/16 Movement # Bowel Movements 2 0 1 Estimated Stool Amount Small Large Small # Voids 2 Objective Active Medications: Albuterol/Ipratropium (Duoneb Neb.Viola*) 1 neb INH Q6H PRN PRN Reason: SHORTNESS OF BREATH Last Admin: 04/17/16 08:37 Dose: 1 neb Dextrose (D50w Syringe 50 Ml*) 12.5 gm IV PUSH .FOR FS < 60 - SS PRN PRN Reason: FS < 60 Last Admin: 04/18/16 06:52 Dose: 12.5 gm Furosemide (Lasix Tab*) 40 mg PO 0800,1700 [facility] Haloperidol Lactate (Haldol Inj Iv/Im*) 2.5 mg IV SLOW PU Q4H PRN PRN Reason: AGITATION Last Admin: 04/16/16 22:56 Dose: 2.5 mg Heparin Sodium (Porcine) (Heparin Vial(*)) 5,000 units SUBCUT Q8HR [facility] Last Admin: 04/18/16 05:26 Dose: 5,000 units Heparin Sodium (Porcine) (Heparin Flush Picc/Ml/Cvc(*)) 0 ml IV FLUSH 0600, 1800 [facility] PRN Reason: Protocol Last Admin: 04/18/16 06:55 Dose: 1 ml Insulin Glargine (Lantus(*)) 45 units SUBCUT Q24H [facility] Last Admin: 04/17/16 12:27 Dose: 45 units Insulin Human Lispro (Humalog*) 0 units SUBCUT ACHS [facility] PRN Reason: Protocol Last Admin: 04/18/16 07:56 Dose: Not Given Metformin HCl (Glucophage*) 1,000 mg PO BID [facility] Metoprolol Tartrate (Lopressor Tab*) 25 mg PO BID [facility] Nitroglycerin (Nitroglycerin Tab 0.4 Mg*) 0.4 mg SL Q5M PRN PRN Reason: pain Omeprazole (Prilosec Cap*) 20 mg PO DAILY@0730 [facility] Ondansetron HCl (Zofran Inj*) 4 mg IV Q4H PRN PRN Reason: NAUSEA Prednisone (Deltasone Tab*) 40 mg PO DAILY [facility] Ramipril (Altace Cap*) 5 mg PO DAILY [facility] Tramadol HCl (Ultram*) 50 mg PO Q6H PRN PRN Reason: PAIN Last Admin: 04/18/16 04:11 Dose: 50 mg Vital Signs 04/17/16 04/17/16 04/17/16 12:30 13:31 13:35 Temperature 98.8 F Pulse Rate 72 Respiratory 24 36 28 Rate Blood Pressure 152/62 (mmHg) O2 Sat by Pulse 90 Oximetry 04/17/16 04/17/16 04/17/16 14:30 16:05 19:35 Temperature 98.2 F Pulse Rate 69 Respiratory 22 16 Rate Blood Pressure 152/61 (mmHg) O2 Sat by Pulse 92 Oximetry 04/17/16 04/17/16 04/17/16 19:36 20:00 20:01 Temperature Pulse Rate 76 Respiratory 24 20 20 Rate Blood Pressure 146/60 (mmHg) O2 Sat by Pulse 96 Oximetry 04/17/16 04/17/16 04/18/16 22:01 23:47 02:17 Temperature 97.5 F Pulse Rate 70 76 Respiratory 20 24 20 Rate Blood Pressure 133/54 (mmHg) O2 Sat by Pulse 89 92 Oximetry 04/18/16 04/18/16 04/18/16 03:40 04:00 04:11 Temperature 98.8 F Pulse Rate 70 Respiratory 26 20 Rate Blood Pressure 133/57 (mmHg) O2 Sat by Pulse 88 94 Oximetry 04/18/16 04/18/16 06:11 07:28 Temperature 98.9 F Pulse Rate 72 Respiratory 20 20 Rate Blood Pressure 137/62 (mmHg) O2 Sat by Pulse 93 Oximetry Oxygen Devices in Use Now: Nasal Cannula Result Diagrams: 04/14/16 05:30 04/18/16 05:25 Additional Lab and Data: Lab Results 04/09/16 04/09/16 04/09/16 Range/Units 22:25 22:25 22:25 WBC 10.4 (3.5-10.8) 10^3/ul RBC 5.60 H (4.0-5.4) 10^6/ul Hgb 14.2 (12.0-16.0) g/dl Hct 45 (35-47) % MCV 81 (80-97) fL MCH 25 L (27-31) pg MCHC 31 (31-36) g/dl RDW 18 H (10.5-15) % Plt Count 409 (150-450) 10^3/ul MPV 8 (7.4-10.4) um3 Neut % (Auto) 77.8 (38-83) % Lymph % (Auto) 12.2 L (25-47) % [place] % (Auto) 9.5 H (1-9) % Eos % (Auto) 0 (0-6) % Baso % (Auto) 0.5 (0-2) % Absolute Neuts (auto) 8.1 H (1.5-7.7) 10^3/ul Absolute Lymphs (auto) 1.3 (1.0-4.8) 10^3/ul Absolute Monos (auto) 1.0 H (0-0.8) 10^3/ul Absolute Eos (auto) 0 (0-0.6) 10^3/ul Absolute Basos (auto) 0 (0-0.2) 10^3/ul Absolute Nucleated RBC 0.01 10^3/ul Nucleated RBC % 0 Sodium 128 L (133-145) mmol/L Potassium 4.2 (3.5-5.0) mmol/L Chloride 92 L (101-111) mmol/L Carbon Dioxide 25 (22-32) mmol/L Anion Gap 11 (2-11) mmol/L BUN 50 H (6-24) mg/dL Creatinine 0.99 H (0.51-0.95) mg/dL Est GFR ( Amer) 73.1 (>60) Est GFR (Non-Af Amer) 56.8 (>60) BUN/Creatinine Ratio 50.5 H (8-20) Glucose 509 H* (70-100) mg/dL Lactic Acid 2.8 H* (0.5-2.0) mmol/L Calcium 9.5 (8.6-10.3) mg/dL Total Bilirubin 0.60 (0.2-1.0) mg/dL AST 17 (13-39) U/L ALT 20 (7-52) U/L Alkaline Phosphatase 197 H (34-104) U/L C-Reactive Protein 6.21 H (< 5.00) mg/L Total Protein 7.7 (6.4-8.9) g/dL Albumin 3.8 (3.2-5.2) g/dL Globulin 3.9 (2-4) g/dL Albumin/Globulin Ratio 1.0 (1-3) Lipase 88 H (11.0-82.0) U/L Microbiology and Other Data: Microbiology 04/10/16 13:20 Nasal Screen MRSA (PCR)(ODALYS) - Final Nasal Mrsa Negative Assessment/Plan - Billing 60 yo F h/o CHF, CAD, DM2, dementia, temporal arteritis, DVT 2014 p/w ischemic bowel s/p ex-lap for small bowel resection c/b ileus ileus - resolving, diet advanced per surgery CHF exacerbation -CXR c/w acute combined systolic/diastolic heart failure - lasix IV this AM - c/w lasix 40mg PO tomorrow - this is the bumex equivalent. Ok to restart bumex on discharge if BP has remained stable DM2- well controlled -c/w basal bolus insulin -metformin restarted. Can restart home insulin regimen on discharge TA - c/w steroids. -unclear to this author if she was on 40mg methylprednisolone daily prior to presentation Malnutrition - TPN finishing and diet advanced HTN - - restarted metoprolol PO (convert to succinate on discharge) -restarted enalapril tomorrow AM -holding Aldactone to evaluate blood pressure on above agents CAD - restart plavix when OK from surgical stand point VTE PPX: HSQ Will continue to follow
[2016-04-18] MEDS: Metoprolol Tartrate TAB* 25 MG PO SCH ×2 (11:16→21:32)
[2016-04-18] MEDS: Insulin GLARGINE(*) 1 UNITS UNIT SUBCUT SCH (11:26)
[2016-04-18] MEDS: Furosemide TAB* 40 MG PO SCH (16:58)
[2016-04-18] MEDS ORDERED: Insulin GLARGINE(*) 1 UNITS UNIT SUBCUT SCH (21:00)
[2016-04-18] MEDS: metFORMIN* 1,000 MG TAB PO SCH (21:32)
[2016-04-19] MEDS: Heparin VIAL(*) 5000 UNITS/ML VIAL (FIVE THOUSAND) SUBCUT SCH (05:32)
[2016-04-19 06:10] LABS: BUN/Creatinine Ratio 57.7 (8-20); Calcium 7.7 mg/dL (8.6-10.3); EGFR African American 153.7 (>60); EGFR Non-African American 119.5 (>60); Potassium 3.4 mmol/L (3.5-5.0)
[2016-04-19] MEDS ORDERED: Omeprazole CAP* 20 MG PO SCH (07:30)
--- NOTE | 2016-04-19 07:44 | PN ---
Progress Note - Progress Note SOAP: Subjective: Without complaint No new problems according to nurses Bowels are moving She complains of no abdominal pain Objective: Temp Pulse Resp BP Pulse Ox 97.6 F 69 16 130/34 91 04/19/16 03:42 04/19/16 03:42 04/19/16 03:42 04/19/16 03:42 04/19/16 03:42 Intake & Output 04/17/16 04/18/16 04/19/16 04/20/16 06:59 06:59 06:59 06:59 Intake Total 2277 3994 1060 Output Total 450 0 0 Balance 1827 3994 1060 Weight 138 lb 12.8 oz Intake: IV Fluids 144 NS to Maintain IV Patency 144 IVPB 115 NS to Maintain IV Patency 115 TPN/PPN 1513 839 Oral 620 3040 1060 Output: Urine 400 0 0 Liquid Stool 50 Other: Estimated Void Small Medium Medium Date of Last Bowel 04/17/16 1 Movement # Bowel Movements 0 1 Estimated Stool Amount Large Small Small # Voids 2 1 Laboratory Results - last 24 hr 04/18/16 04/18/16 04/18/16 07:51 11:22 16:38 Sodium Potassium Chloride Carbon Dioxide Anion Gap BUN Creatinine Est GFR ( Amer) Est GFR (Non-Af Amer) BUN/Creatinine Ratio Glucose POC Glucose (mg/dL) 127 H 90 69 L Calcium 04/18/16 04/18/16 04/18/16 17:11 17:32 17:55 Sodium Potassium Chloride Carbon Dioxide Anion Gap BUN Creatinine Est GFR ( Amer) Est GFR (Non-Af Amer) BUN/Creatinine Ratio Glucose POC Glucose (mg/dL) 63 L 58 L 129 H Calcium 04/18/16 04/19/16 21:21 05:40 Sodium 139 Potassium 3.4 L Chloride 112 H Carbon Dioxide 21 L Anion Gap 6 BUN 30 H Creatinine 0.52 Est GFR ( Amer) 153.7 Est GFR (Non-Af Amer) 119.5 BUN/Creatinine Ratio 57.7 H Glucose 53 L POC Glucose (mg/dL) 121 H Calcium 7.7 L Assessment: S/P ex lap with small bowel resection for acute small bowel ischemia Ileus resolved Medical issues as documented Plan: Wound VAC Soft diet Medical mgmt of diabetes Hopeful D/C today to [facility]
[2016-04-19] MEDS: Insulin LISPRO* 1 UNITS UNIT SUBCUT SCH ×2 (08:00→11:49)
[2016-04-19] MEDS: Furosemide TAB* 40 MG PO SCH (08:03)
[2016-04-19] MEDS ORDERED: predniSONE TAB* 20 MG PO SCH (09:00)
[2016-04-19] MEDS ORDERED: Ramipril CAP* 5 MG PO SCH (09:00)
[2016-04-19] MEDS: metFORMIN* 1,000 MG TAB PO SCH (09:09)
[2016-04-19] MEDS: Metoprolol Tartrate TAB* 25 MG PO SCH (09:09)
[2016-04-19 09:30] VITALS: BP 159/91
--- NOTE | 2016-04-19 14:17 | DS ---
DISCHARGE SUMMARY: DATE OF ADMISSION: 04/10/16 DATE OF DISCHARGE: 04/19/16 ATTENDING SURGEON: Dr. Ramy Gary. HOSPITAL COURSE: Please refer to the admission history and physical on for admission details. The patient is a 60-year-old [facility] resident with history of CHF, type 2 diabetes, coronary artery disease, history of DVT, COPD, anxiety, peripheral neuropathy, chronic back pain, AICD placement , history of multiple falls, and recent admission in March at [facility] where she was diagnosed with transaminitis and placed on a steroid taper, who presented with abdominal pain and found by CT scan to have significant portal venous air. She was taken to the OR by Dr. Gary on 06/22, where findings included two segments of small bowel with significant ischemia. Those two segments (total combined length of 67 cm) were resected and abdomen was left open for planned return to OR for second look. Return to OR on 04/12/16 showed remaining small bowel to be viable. Anastomosis was performed x2 to reestablish continuity. A G-tube was placed for the possible need for tube feeds (this was never required) and the abdomen was closed. She had a fairly steady postoperative improvement and completed a course of Zosyn IV. A PICC line was placed for TPN, which was used for nutrition support up until 04/17/16, at which time it was discontinued. By that time, the patient was tolerating advancement of diet and having normal bowel function. She was seen in consultation by both the commercial stripper and the hospitalist service when she was on the floor. The fascia had been closed over the midline incision, but the wound (skin and subcutaneous) had been left open. A wound VAC was placed and plan was for continuation of wound VAC at the nursing facility. Physical exam as of the morning of discharge showed temperature 97.2, blood pressure ranging from 122 to 159 over 34 to 91, pulse 69, respirations 16 to 18 , and O2 saturation on 3 L nasal cannula 91% to 94%. Please see Dr. Gary' s note from this morning for the remainder of physical exam. A wound VAC is in place over the midline incision and dry dressings are around the G-tube site. Her fingerstick glucoses have remained somewhat low despite holding Lantus and short-acting insulin over the past 24 hours. This is presumed to continue to improve on its own, though she will require fingersticks a.c. and h.s. at least for the first few days on returning to the nursing facility. DISCHARGE MEDICATIONS: Include: 1. Spironolactone 25 mg 2 tablets once daily. 2. Sertraline 100 mg once daily. 3. Ramipril 5 mg once daily. 4. Prednisolone 5 mg 8 tablets (total of 40 mg) once daily x4 days and then following taper as indicated by Dr. Bush's order. 5. Nitroglycerin 0.4 mg sublingual q.5 minutes p.r.n. chest pain. 6. Montelukast 10 mg once daily. 7. Metoprolol succinate XL 25 mg b.i.d. 8. Metformin 1000 mg p.o. b.i.d. 9. Gabapentin 300 mg t.i.d. plus 900 mg at bedtime. 10. Famotidine 20 mg b.i.d. 11. Clopidogrel 75 mg daily. 12. Bumetanide 1 mg b.i.d. 13. Budesonide/formoterol 160/4.5 (Symbicort) 2 puffs b.i.d. 14. DuoNeb 1 nebulizer treatment q.6 hours p.r.n. 15. Albuterol MDI 2 puffs q.4 hours p.r.n. 16. Acetaminophen 650 mg p.o. q.6 hours p.r.n. mild pain. 17. Tramadol 50 mg q.6 hours p.r.n. moderate pain (prescription e-sent to [facility]). 18. Spiriva 1 inhalation once daily. 19. O2 at 3 L nasal cannula. FOLLOWUP: Arrangements will be made for followup next Saturday morning with Dr. Gary in the Wound [facility]. DIXIE COELLO CC: [facility]; Dr. Nella Walker, listed as her primary at [facility] * [id number]/[facility] #: [id number] [facility]
--- NOTE | 2016-04-19 16:29 | CONSULT ---
Subjective Date of Service: 04/19/16 Interval History: Pt seen and examined this AM prior to discharge Her breathing has normalized and she is denying any SON nor CP She is anxious to leave the hospital Review of Systems - Measurements Intake and Output: Intake and Output Last 24 Hours 04/17/16 04/18/16 04/19/16 04/20/16 11:59 11:59 11:59 11:59 Intake Total 2927 3344 1540 Output Total 400 0 Balance 2527 3344 1540 Weight 60.373 kg 62.959 kg Intake: IV Fluids 144 NS to Maintain IV Patency 144 IVPB 115 NS to Maintain IV Patency 115 TPN/PPN 1513 839 Oral 1270 2390 1540 Output: Urine 400 0 Other: Estimated Void Medium Medium Large Date of Last Bowel 04/17/16 1 Movement # Bowel Movements 0 1 Estimated Stool Amount Large Medium Small # Voids 2 2 Objective Vital Signs 04/18/16 04/18/16 04/18/16 19:48 21:30 23:22 Temperature 99.1 F 97.1 F Pulse Rate 70 70 Respiratory 18 18 16 Rate Blood Pressure 144/61 145/49 (mmHg) O2 Sat by Pulse 86 91 Oximetry 04/19/16 04/19/16 04/19/16 03:42 07:43 08:00 Temperature 97.6 F 97.2 F Pulse Rate 69 70 Respiratory 16 18 18 Rate Blood Pressure 130/34 159/91 (mmHg) O2 Sat by Pulse 91 94 Oximetry 04/19/16 08:43 Temperature Pulse Rate 69 Respiratory 16 Rate Blood Pressure (mmHg) O2 Sat by Pulse 91 Oximetry Oxygen Devices in Use Now: Nasal Cannula Appearance: NAD Ears/Nose/Mouth/Throat: NL Teeth, Lips, Gums, Mucous Membranes Moist Neck: NL Appearance and Movements; NL JVP Respiratory: Symmetrical Chest Expansion and Respiratory Effort, Clear to Auscultation, - Cardiovascular: RRR Abdominal: NL Sounds; No Tenderness; No Distention Extremities: No Edema Neurological: Alert and Oriented x 3 Result Diagrams: 04/14/16 05:30 04/19/16 05:40 Additional Lab and Data: Lab Results 04/09/16 04/09/16 04/09/16 Range/Units 22:25 22:25 22:25 WBC 10.4 (3.5-10.8) 10^3/ul RBC 5.60 H (4.0-5.4) 10^6/ul Hgb 14.2 (12.0-16.0) g/dl Hct 45 (35-47) % MCV 81 (80-97) fL MCH 25 L (27-31) pg MCHC 31 (31-36) g/dl RDW 18 H (10.5-15) % Plt Count 409 (150-450) 10^3/ul MPV 8 (7.4-10.4) um3 Neut % (Auto) 77.8 (38-83) % Lymph % (Auto) 12.2 L (25-47) % [place] % (Auto) 9.5 H (1-9) % Eos % (Auto) 0 (0-6) % Baso % (Auto) 0.5 (0-2) % Absolute Neuts (auto) 8.1 H (1.5-7.7) 10^3/ul Absolute Lymphs (auto) 1.3 (1.0-4.8) 10^3/ul Absolute Monos (auto) 1.0 H (0-0.8) 10^3/ul Absolute Eos (auto) 0 (0-0.6) 10^3/ul Absolute Basos (auto) 0 (0-0.2) 10^3/ul Absolute Nucleated RBC 0.01 10^3/ul Nucleated RBC % 0 Sodium 128 L (133-145) mmol/L Potassium 4.2 (3.5-5.0) mmol/L Chloride 92 L (101-111) mmol/L Carbon Dioxide 25 (22-32) mmol/L Anion Gap 11 (2-11) mmol/L BUN 50 H (6-24) mg/dL Creatinine 0.99 H (0.51-0.95) mg/dL Est GFR ( Amer) 73.1 (>60) Est GFR (Non-Af Amer) 56.8 (>60) BUN/Creatinine Ratio 50.5 H (8-20) Glucose 509 H* (70-100) mg/dL Lactic Acid 2.8 H* (0.5-2.0) mmol/L Calcium 9.5 (8.6-10.3) mg/dL Total Bilirubin 0.60 (0.2-1.0) mg/dL AST 17 (13-39) U/L ALT 20 (7-52) U/L Alkaline Phosphatase 197 H (34-104) U/L C-Reactive Protein 6.21 H (< 5.00) mg/L Total Protein 7.7 (6.4-8.9) g/dL Albumin 3.8 (3.2-5.2) g/dL Globulin 3.9 (2-4) g/dL Albumin/Globulin Ratio 1.0 (1-3) Lipase 88 H (11.0-82.0) U/L Microbiology and Other Data: Microbiology 04/10/16 13:20 Nasal Screen MRSA (PCR)(ODALYS) - Final Nasal Mrsa Negative Assessment/Plan - Billing 60 yo F h/o CHF, CAD, DM2, dementia, temporal arteritis, DVT 2014 p/w ischemic bowel s/p ex-lap for small bowel resection c/b ileus CHF -home bumex restarted on d/c DM2- well controlled -complicated by hypoglycemia -pt discharged on metformin with instructions to continue FSG at [facility] on discharge -she is expected to need insulin in the future however current hypoglycemic episode prohibit it's reintroduction on discharge Alcoholic hepatitis -steroid taper started on discharge HTN - -home medications restarted CAD - restarted plavix after discussion with surgical team
== END 2016-04-19 12:20 | DRG 221 ==
LOC: ED 22:19 → ICU 04-10 06:03 → SSU 04-16 08:40
PROVIDERS: ADMIT Internal Medicine; ATTEND Surgery
PROC: 02HV33Z Insertion of Infusion Device into Superior Vena Cava, Percutaneous Approach (ICD-10-PCS; 2016-04-10)
PROC: 3E0G76Z Introduction of Nutritional Substance into Upper GI, Via Natural or Artificial Opening (ICD-10-PCS; 2016-04-10)
PROC: 0DB80ZZ Excision of Small Intestine, Open Approach (ICD-10-PCS; principal; 2016-04-10 07:45)
PROC: 0D1A0ZA Bypass Jejunum to Jejunum, Open Approach (ICD-10-PCS; 2016-04-12)
PROC: 0WJP4ZZ Inspection of Gastrointestinal Tract, Percutaneous Endoscopic Approach (ICD-10-PCS; 2016-04-12)
PROC: 0D1A0ZA Bypass Jejunum to Jejunum, Open Approach (ICD-10-PCS; 2016-04-12)
PROC: 0DH60UZ Insertion of Feeding Device into Stomach, Open Approach (ICD-10-PCS; 2016-04-12)
PROC: 2W13X6Z Compression of Abdominal Wall using Pressure Dressing (ICD-10-PCS; 2016-04-17)
DX: K55.029 Acute infarction of small intestine, extent unspecified (principal); J95.821 Acute postprocedural respiratory failure; I50.43 Acute on chronic combined systolic (congestive) and diastolic (congestive) heart failure; K65.9 Peritonitis, unspecified; N17.9 Acute kidney failure, unspecified; E87.2 Acidosis; E44.0 Moderate protein-calorie malnutrition; I13.0 Hypertensive heart and chronic kidney disease with heart failure and stage 1 through stage 4 chronic kidney disease, or unspecified chronic kidney disease; K56.7 Ileus, unspecified; E87.1 Hypo-osmolality and hyponatremia; E11.22 Type 2 diabetes mellitus with diabetic chronic kidney disease; F03.90 Unspecified dementia, unspecified severity, without behavioral disturbance, psychotic disturbance, mood disturbance, and anxiety; E11.42 Type 2 diabetes mellitus with diabetic polyneuropathy; Z86.718 Personal history of other venous thrombosis and embolism; J44.9 Chronic obstructive pulmonary disease, unspecified; F41.9 Anxiety disorder, unspecified; G89.29 Other chronic pain; M54.9 Dorsalgia, unspecified; Z95.810 Presence of automatic (implantable) cardiac defibrillator; Z91.81 History of falling; Z79.02 Long term (current) use of antithrombotics/antiplatelets; M31.6 Other giant cell arteritis; I25.5 Ischemic cardiomyopathy; Z79.84 Long term (current) use of oral hypoglycemic drugs; Z88.6 Allergy status to analgesic agent; Z88.5 Allergy status to narcotic agent; Z66 Do not resuscitate; Z91.041 Radiographic dye allergy status; N18.9 Chronic kidney disease, unspecified; I25.10 Atherosclerotic heart disease of native coronary artery without angina pectoris; Z95.1 Presence of aortocoronary bypass graft; E11.65 Type 2 diabetes mellitus with hyperglycemia; R79.89 Other specified abnormal findings of blood chemistry; Z68.29 Body mass index [BMI] 29.0-29.9, adult; E83.39 Other disorders of phosphorus metabolism; R06.81 Apnea, not elsewhere classified; E11.649 Type 2 diabetes mellitus with hypoglycemia without coma; K70.10 Alcoholic hepatitis without ascites; K74.60 Unspecified cirrhosis of liver; I48.91 Unspecified atrial fibrillation
CPT/HCPCS: 36415; 36600; 71010; 74176; 76705; 80048; 80053; 82803; 83036; 83605; 83690; 83735; 84100; 84478; 84484; 84520; 85025; 85027; 85610; 85730; 86140; 86850; 86900; 86901; 87641; 88307; 93005; 94002; 94003; 94640; 94760; 99285; A9270-GY; C1751; C1776; J0330; J0694; J1170; J1630; J1644; J1720; J1940; J2250; J2405; J2543; J2704; J2920; J3010; J3475; J3480; J3490; J7512

== ENCOUNTER 2016-04-23 15:44 | Observation (INO) | payer OTHER, MEDICAID ==
[2016-04-23 17:36] LABS: Comments Flag Yes; Hematocrit 33 % (35-47); Hemoglobin 9.9 g/dl (12.0-16.0); Mean Corpuscular HGB Conc 30 g/dl (31-36); Mean Corpuscular Hemoglobin 24 pg (27-31); Mean Corpuscular Volume 81 fL (80-97); Mean Platelet Volume 8 um3 (7.4-10.4); Red Cell Distribution Width 21 % (10.5-15); White Blood Count 13.8 10^3/ul (3.5-10.8)
[2016-04-23 17:51] LABS: Albumin 2.6 g/dL (3.2-5.2); BUN/Creatinine Ratio 26.6 (8-20); C Reactive Protein 36.9 mg/L (< 5.00); Calcium 8.3 mg/dL (8.6-10.3); EGFR African American 120.9 (>60); Potassium 3.5 mmol/L (3.5-5.0); Total Bilirubin 0.9 mg/dL (0.2-1.0); Total Protein 5.6 g/dL (6.4-8.9)
[2016-04-23] MEDS: NS 0.9% 1000 ML* 2,000 ML IV ONE ×2 (18:21→21:39)
--- NOTE | 2016-04-23 18:42 | RAD ---
INDICATION: Abdominal pain, elevated white blood cell count. Recent abdominal surgery. History of ischemic bowel. Assess for wound infection. COMPARISON: April 10, 2016 CT. TECHNIQUE: Multidetector CT images were obtained from the lung bases to the ischial tuberosities. Evaluation of the viscera is limited without IV contrast. Multiplanar reformation. REPORT: Cardiomegaly, median sternotomy wires, RIGHT atrial and RIGHT ventricular level pacemaker leads. Negative for pericardial effusion. Small to moderate RIGHT and small LEFT dependent pleural effusions and basilar airspace consolidation most suspicious for pulmonary edema. Resolution of previous extensive portal venous gas. No suspicious finding of the unenhanced liver or gallbladder. Moderately atrophic pancreas without suspicious finding. Unremarkable spleen. Percutaneous gastric feeding tube in place. No CT abnormality of the upper GI. RIGHT para midline mid abdomen small bowel anastomosis. Enteric contrast traverses across the level of the anastomosis. Negative for small bowel dilatation to indicate obstruction. Negative for CT abnormality of the colon or retrocecal appendix. Minimal ascites. Negative for free intraperitoneal air. Dehiscent dermal and subcutaneous wound at the midline anterior abdominal wall both above and below the umbilicus. Suggestion of wound packing. No definitive loculated abscess collection evident. Normal adrenal glands. Normal variant bilateral extrarenal pelves. Negative for ureteral dilatation. Distended urinary bladder without gross abnormality. Unremarkable uterus and adnexal regions. Negative for lymphadenopathy. Extensive atherosclerotic calcification of the abdominal aorta and iliac arteries as well as the visceral artery origins and visceral arteries. Partially decompressed IVC suggesting low volume state. No significant change in osteoporotic compression fractures at L3 and L4. IMPRESSION: 1. Probable pulmonary edema with associated RIGHT larger than LEFT dependent pleural effusions new compared with the prior exam. 2. Resolution of previous extensive portal venous gas. 3. RIGHT para midline mid abdomen small bowel anastomosis. Enteric contrast traverses across the level of the anastomosis. Negative for small bowel dilatation to indicate obstruction. 4. Dehiscent dermal and subcutaneous wound at the midline anterior abdominal wall both above and below the umbilicus. Suggestion of wound packing. No definitive loculated abscess collection evident. 5. Extensive peripheral vascular disease. 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
[2016-04-23 20:32] LABS: Urine Bilirubin Negative (Negative); Urine Glucose 3+(>=500 mg/dL) (Negative); Urine Nitrite Negative (Negative)
--- NOTE | 2016-04-23 20:59 | ED ---
Sohail Steve Erika, scribed for Titi Paiz MD on 04/23/16 at 1640 . Complex/Multi-Sys Presentation - HPI Summary HPI Summary: Patient is a 60-year-old female presenting to the ED with a CC of possible abdominal surgical wound infection. Patient's records report she had an exploratory laparotomy with two reanastomosis of small bowel and a Antolin gastrostomy tube insertion on 04/12/2016, although pt instead states "stomach surgery 3-4 months ago." Pt is unable to state if she sees a Wound Clinic. Pt states that abdomen has been draining. She denies taking Abx. Pt reports fever, but denies diarrhea. She states she has been bedridden since the surgery. Pt is a former smoker. Reports Hx vertigo. LEVEL 5 CAVEAT - PT UNABLE TO REPORT HISTORY. History provided from [facility] records and past medical records. - History Of Current Complaint Chief Complaint: EDGeneral Time Seen by Provider: 04/23/16 16:22 Hx Obtained From: Patient, Medical Records - and [facility] records Onset/Duration: Still Present Timing: Constant Severity Currently: Moderate Associated Signs And Symptoms: Positive: Fever. Negative: Diarrhea - Allergies/Home Medications Allergies/Adverse Reactions: Allergies Allergy/AdvReac Type Severity Reaction Status Date / Time Codeine Allergy Mild Hives Verified 04/09/16 22:42 Iohexol Allergy Hives Verified 04/09/16 22:42 Aspirin [ASA] AdvReac Mild Hives Verified 04/09/16 22:42 PMH/Surg Hx/FS Hx/Imm Hx Endocrine/Hematology History: Reports: Hx Diabetes Cardiovascular History: Reports: Hx Congestive Heart Failure, Hx Coronary Artery Disease, Hx Embolism, Hx Hypertension, Hx Pacemaker/ICD, Hx Peripheral Vascular Disease, Other Cardiovascular Problems/Disorders - "Heart condition" Respiratory History: Reports: Hx Chronic Obstructive Pulmonary Disease (COPD) GI History: Reports: Hx Cirrhosis, Other GI Disorders - CURRENT ISSUE WITH ISCHEMIC BOWEL Neurological History: Reports: Hx Dementia - Surgical History Surgery Procedure, Year, and Place: CABG Infectious Disease History: Unable to Obtain/Confirm Infectious Disease History: Reports: Hx Hepatitis Denies: Traveled Outside the [place] in Last 30 Days - Family History Family History: LEVEL 5 CAVEAT - UNOBTAINABLE - Social History Alcohol Use: None Alcohol Amount: PAST HX OF ABUSE Hx Substance Use: No Substance Use Type: Reports: None Hx Tobacco Use: Yes Smoking Status (MU): Former Smoker Type: Cigarettes Have You Smoked in the Last Year: Yes Review of Systems - ROS Summary Review of Systems Summary: LEVEL 5 CAVEAT - PT UNABLE TO REPORT HISTORY. Positive: Fever Negative: Diarrhea Skin: Other - abd wound infection with drainage All Other Systems Reviewed And Are Negative: No Physical Exam - Summary Physical Exam Summary: The patient is well-nourished in no acute distress and in no acute pain. The skin is warm and dry and skin color reflects adequate perfusion. There is decreased skin turgor. HEENT: The head is normocephalic and atraumatic. The pupils are equal and reactive. The conjunctivae are clear and without drainage. Nares are patent and without drainage. Mouth reveals dry mucous membranes and the throat is without erythema and exudate. The external ears are intact. The ear canals are patent and without drainage. The tympanic membranes are intact. Neck is supple with full range of motion and non-tender. There are no carotid bruits. There is no neck vein distension. Respiratory: Chest is non-tender. Lungs are clear to auscultation and breath sounds are symmetrical and equal. Cardiovascular: Heart is regular rate and rhythm. There is no murmur or rub auscultated. There is no peripheral edema and pulses are symmetrical and equal. Abdomen: There is a gastrostomy drain present on the right side and a edwards catheter from the LUQ with purulent drainage. The surrounding skin is excoriated. The abdomen is tender to touch, and is not distended. There are normal bowel sounds heard in all four quadrants and there is no organomegaly palpated. Musculoskeletal: There is no back pain noted. Extremities are non-tender with full range of motion. There is good capillary refill of 2 seconds. There is no peripheral edema or calf tenderness elicited. Neurological: Patient is alert and oriented to person, place and time. The patient has symmetrical motor strength in all four extremities. Cranial nerves are grossly intact. Psychiatric: The patient has an appropriate affect and does not exhibit any anxiety or depression. Triage Information Reviewed: Yes Vital Signs On Initial Exam: Initial Vitals Temp Pulse Resp BP Pulse Ox 98.2 F 70 18 146/53 96 04/23/16 15:54 04/23/16 15:54 04/23/16 15:54 04/23/16 15:54 04/23/16 15:54 Vital Signs Reviewed: Yes Completion Of Physical Exam Limited Due To: Level 5 Diagnostics - Vital Signs Vital Signs Temp Pulse Resp BP Pulse Ox 04/23/16 15:54 98.2 F 70 18 146/53 96 - Laboratory Lab Results: Lab Results 04/23/16 04/23/16 04/23/16 Range/Units 17:20 17:20 17:20 WBC 13.8 H (3.5-10.8) 10^3/ul RBC 4.10 (4.0-5.4) 10^6/ul Hgb 9.9 L (12.0-16.0) g/dl Hct 33 L (35-47) % MCV 81 (80-97) fL MCH 24 L (27-31) pg MCHC 30 L (31-36) g/dl RDW 21 H (10.5-15) % Plt Count 247 (150-450) 10^3/ul MPV 8 (7.4-10.4) um3 Neut % (Auto) 97.4 H (38-83) % Lymph % (Auto) 1.4 L (25-47) % [place] % (Auto) 0.4 L (1-9) % Eos % (Auto) 0 (0-6) % Baso % (Auto) 0.8 (0-2) % Absolute Neuts (auto) 13.4 H (1.5-7.7) 10^3/ul Absolute Lymphs (auto) 0.2 L (1.0-4.8) 10^3/ul Absolute Monos (auto) 0.1 (0-0.8) 10^3/ul Absolute Eos (auto) 0 (0-0.6) 10^3/ul Absolute Basos (auto) 0.1 (0-0.2) 10^3/ul Absolute Nucleated RBC 0.02 10^3/ul Nucleated RBC % 0.1 Sodium 132 L (133-145) mmol/L Potassium 3.5 (3.5-5.0) mmol/L Chloride 97 L (101-111) mmol/L Carbon Dioxide 28 (22-32) mmol/L Anion Gap 7 (2-11) mmol/L BUN 17 (6-24) mg/dL Creatinine 0.64 (0.51-0.95) mg/dL Est GFR ( Amer) 120.9 (>60) Est GFR (Non-Af Amer) 94.0 (>60) BUN/Creatinine Ratio 26.6 H (8-20) Glucose 417 H (70-100) mg/dL Lactic Acid 2.3 H* (0.5-2.0) mmol/L Calcium 8.3 L (8.6-10.3) mg/dL Total Bilirubin 0.90 (0.2-1.0) mg/dL AST 17 (13-39) U/L ALT 35 (7-52) U/L Alkaline Phosphatase 106 H (34-104) U/L C-Reactive Protein 36.90 H (< 5.00) mg/L Total Protein 5.6 L (6.4-8.9) g/dL Albumin 2.6 L (3.2-5.2) g/dL Globulin 3.0 (2-4) g/dL Albumin/Globulin Ratio 0.9 L (1-3) Amylase 25 L (29-103) U/L Lipase 40 (11.0-82.0) U/L Urine Color Urine Appearance Urine pH (5-9) Ur Specific Martin (1.010-1.030) Urine Protein (Negative) Urine Ketones (Negative) Urine Blood (Negative) Urine Nitrate (Negative) Urine Bilirubin (Negative) Urine Urobilinogen (Negative) Ur Leukocyte Esterase (Negative) Urine Glucose (Negative) 04/23/16 Range/Units 20:14 WBC (3.5-10.8) 10^3/ul RBC (4.0-5.4) 10^6/ul Hgb (12.0-16.0) g/dl Hct (35-47) % MCV (80-97) fL MCH (27-31) pg MCHC (31-36) g/dl RDW (10.5-15) % Plt Count (150-450) 10^3/ul MPV (7.4-10.4) um3 Neut % (Auto) (38-83) % Lymph % (Auto) (25-47) % [place] % (Auto) (1-9) % Eos % (Auto) (0-6) % Baso % (Auto) (0-2) % Absolute Neuts (auto) (1.5-7.7) 10^3/ul Absolute Lymphs (auto) (1.0-4.8) 10^3/ul Absolute Monos (auto) (0-0.8) 10^3/ul Absolute Eos (auto) (0-0.6) 10^3/ul Absolute Basos (auto) (0-0.2) 10^3/ul Absolute Nucleated RBC 10^3/ul Nucleated RBC % Sodium (133-145) mmol/L Potassium (3.5-5.0) mmol/L Chloride (101-111) mmol/L Carbon Dioxide (22-32) mmol/L Anion Gap (2-11) mmol/L BUN (6-24) mg/dL Creatinine (0.51-0.95) mg/dL Est GFR ( Amer) (>60) Est GFR (Non-Af Amer) (>60) BUN/Creatinine Ratio (8-20) Glucose (70-100) mg/dL Lactic Acid (0.5-2.0) mmol/L Calcium (8.6-10.3) mg/dL Total Bilirubin (0.2-1.0) mg/dL AST (13-39) U/L ALT (7-52) U/L Alkaline Phosphatase (34-104) U/L C-Reactive Protein (< 5.00) mg/L Total Protein (6.4-8.9) g/dL Albumin (3.2-5.2) g/dL Globulin (2-4) g/dL Albumin/Globulin Ratio (1-3) Amylase (29-103) U/L Lipase (11.0-82.0) U/L Urine Color Straw Urine Appearance Clear Urine pH 7.0 (5-9) Ur Specific Martin 1.007 L (1.010-1.030) Urine Protein Negative (Negative) Urine Ketones Negative (Negative) Urine Blood Negative (Negative) Urine Nitrate Negative (Negative) Urine Bilirubin Negative (Negative) Urine Urobilinogen Negative (Negative) Ur Leukocyte Esterase Negative (Negative) Urine Glucose 3+(>=500 mg/dl) H (Negative) Result Diagrams: 04/23/16 17:20 04/23/16 17:20 Lab Statement: Any lab studies that have been ordered have been reviewed, and results considered in the medical decision making process. - CT CT A/P W/O CT Interpretation Completed By: Radiologist - IMPRESSION: 1. Probable pulmonary edema with associated RIGHT larger than LEFT dependent pleural effusions new compared with the prior exam. 2. Resolution of previous extensive portal venous gas. 3. RIGHT para midline mid abdomen small bowel anastomosis. Enteric contrast traverses across the level of the anastomosis. Negative for small bowel dilatation to indicate obstruction. 4. Dehiscent dermal and subcutaneous wound at the midline anterior abdominal wall both above and below the umbilicus. Suggestion of wound packing. No definitive loculated abscess collection evident. 5. Extensive peripheral vascular disease. 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 - EKG 16:40 Cardiac Rate: NL - at 70 bpm EKG Rhythm: Sinus Rhythm ST Segment: Non-Specific EKG Interpretation: LVH. No STEMI. Normal axis Re-Evaluation - Re-Evaluation First Eval Re-Evaluation Time: 19:20 Comment: Discussed lab and imaging results and recommendation for admission from Dr. Gary. Complex Multi-Symp Course/Dx Assessment/Plan: Pt was sent from [facility] s/p ischemic small bowel. She is having drainage from her abdomen and her wound vac was not draining. Pt is a poor historian. Pt had CT scan of A/P which did not reveal a surgical abdomen, however lab studies reveal hyperglycemia and dehydration. I discussed with Dr. Gary and he will evaluate the wound in the abdomen and the hospitalist will admit for her comorbid condition. - Diagnoses Differential Diagnoses/HQI/PQRI: Metabolic Abnormality, Urinary Tract Infection , Other - abscess, wound infection, dehydration, hyperglycemia Provider Diagnoses: Abdominal pain, Wound infection, Hyperglycemia, Dehydration - Physician Notifications Discussed Care Of Patient With: Dr. Gary (surgeon) at 19:25 - requests hospitalist admission. Will see patient. Dr. Coleman (hospitalist) at 19:33 - accepts for admission. Discharge - Discharge Plan Condition: Stable Disposition: ADMITTED TO [facility] documentation as recorded by the Sohail mustafa Erika accurately reflects the service I personally performed and the decisions made by me, Titi Paiz MD.
[2016-04-23] MEDS ORDERED: Albuterol/Ipratropium NEB.SOL* Albuterol 2.5 MG/Ipratropium 0.5 MG 3 ML INH PRN (21:27)
[2016-04-23] MEDS ORDERED: traMADol TAB* 50 MG PO PRN (21:27)
[2016-04-23] MEDS ORDERED: Nitroglycerin TAB 0.4 MG* 0.4 MG TAB SL PRN (21:27)
[2016-04-23] MEDS ORDERED: Albuterol HFA INHALER* 8 gm MDI INH PRN (21:27)
[2016-04-23] MEDS ORDERED: Acetaminophen TAB* 325 MG PO PRN (21:27)
[2016-04-23] MEDS ORDERED: Ondansetron INJ* 2 MG/ML VIAL IV PRN (21:36)
[2016-04-23] MEDS ORDERED: Dextrose 50% Syringe 50 ML* 25 GM/50 ML SYRINGE IV PUSH PRN (21:38)
[2016-04-23] MEDS ORDERED: NS 0.9% 1000 ML* 1,000 ML IV SCH (21:45)
[2016-04-23] MEDS ORDERED: Vancomycin per Pharmacy* NOTE FOLLOW UP PRN (21:46)
[2016-04-23] MEDS ORDERED: Vancomycin(*) 1,000 MG in NS 0.9% 250 ML* 250 ML IVPB ONE ×2 (22:00→23:00)
--- NOTE | 2016-04-23 22:08 | CONS ---
CONSULTATION REPORT: DATE OF CONSULTATION: 04/23/15 REFERRING PROVIDER: Dr. Daryl Coleman. The patient was seen in the emergency room with plans for admission. REASON FOR CONSULTATION: Wound drainage and leukocytosis. HISTORY: Ms. Little Smith is a 60-year-old woman who is well known to me who was discharged from [facility] last to the [facility]. She had been presented from the [facility] approximately 2 weeks prior to that with a sudden onset of abdominal pain, nausea, and vomiting and a CT scan which had shown leukocytosis as well as large amount of portal venous air consistent and worrisome for intestinal ischemia. She was taken to the operating room emergently and resection of 2 small bowel segments that were necrotic. She was kept intubated postoperatively in the intensive care unit for 2 days with an open abdomen, taken back to the operating room, 72 hours later where the remainder of the small bowel was found to be viable and she underwent 2 small bowel anastomoses with a gastrotomy tube insertion and closure of abdominal wall. Postoperatively, she did remarkably well, was extubated the next day and she had a prolonged ileus, which was treated with total parenteral nutrition through a PICC line. She also received long-term IV antibiotics. She was on steroids when she presented initially for a transaminitis of the liver, felt to be possibly hepatitis secondary to the alcohol. She had been discharged to [facility] on steroids. In addition, a wound VAC had been placed and was being changed 3 times a week. Apparently, there had been some wound drainage and some skin excoriation [place] [address] was obtained as an outpatient at [facility], and she was sent to the emergency room for further evaluation and care. Apparently, there were no recorded fevers. She has been comfortable with minimal abdominal pain. According to her, she has been eating. Her bowels have been working. In the emergency room, she was noted to be afebrile with normal vital signs. Did have a white blood cell count of a little under 14,000. Blood sugar was 417 with a lactic acid of 2.3 and an elevated C-reactive protein of 36.9. Albumin was 2.6. Amylase was normal. BUN and creatinine were 17 and 0.64, which is about baseline, which is normal. She underwent a CT scan of the abdomen and pelvis. I did review these images. These showed no evidence of intraabdominal acute process such as abscess, extraluminal air fluid or anastomotic leak. There was an open midline wound with the dressing in place. A gastrostomy tube was inserted. There was some air around the gastrostomy tube in the subcutaneous space, but the G tube itself seems to be in good position in the stomach. She is now to be admitted to the hospitalist service for management of her diabetes and General Surgery was consulted for wound care and surgical evaluation. PAST MEDICAL HISTORY: 1. Mental status changes, possibly with early dementia. 2. History of alcohol and tobacco abuse. 3. Coronary artery disease with a history of AICD/pacemaker insertion. 4. Hypertension. 5. Insulin dependent diabetes. 6. History of deep vein thrombosis. PAST SURGICAL HISTORY: 1. Exploratory laparotomy x2 with small bowel resection as per above. 2. Coronary artery bypass grafting. 3. AICD/pacemaker insertion. ALLERGIES: CODEINE, ASPIRIN, and IV DYE. MEDICATIONS: Include: 1. Tramadol. 2. Nitroglycerin. 3. Albuterol. 4. Prednisolone tablet 30 mg daily. 5. Spiriva. 6. Bumex. 7. Symbicort. 8. Metformin/Glucophage. 9. Metoprolol. 10. Neurontin. 11. Pepcid. 12. Aldactone. 13. Zoloft. 14. Prilosec. 15. Plavix. 16. Altace. 17. Singulair. SOCIAL HISTORY: Does not drink or use tobacco, but a long history. She lives at [facility]. She does not have any immediate family. Her power of united states attorney, healthcare proxy is a nephew named, Nick Smith, with a phone number of [phone] as well as [phone]. Also her [id number], Remington Smith, [phone] in [place]. PHYSICAL EXAMINATION: She was afebrile, temperature 98.2, pulse 70, blood pressure 159/55, respirations 14. In general, she is a slender woman, who appears older than her stated age. She is awake, alert, and quite conversive, but is only oriented to person, which is not unusual for her. Sclerae anicteric. Oral mucosa is slightly dry. Trachea was midline. Her lungs were clear to auscultation. Diminished breath sounds at the base. Heart was regular rate and rhythm without murmurs, rubs, or gallops. She has an AICD/pacemaker in the left upper chest wall. Abdomen is soft and nondistended. She has an open midline incision with fascial stitches intact and there are some signs of granulation tissue. The upper portion of the incision, they have had some small fascial dehiscence granulation tissue at its base. There is no evidence of abscess, odor, or purulence. There is a G-tube in place in the left upper quadrant with some drainage around it of brownish discharge consistent with gastric contents, and there is also excoriation of the skin surrounding this area in the left upper abdomen, but no evidence of cellulitis or odor. I did review the images of the CT scan. IMPRESSION: Status post exploratory laparotomy x2 with small bowel resection x2 with reanastomosis and a G-tube placement. She was doing well at [facility] and returned with apparent wound drainage and a leukocytosis on outpatient laboratory workup. Her CT scan of the abdomen and pelvis does not show any acute intraabdominal findings such as abscess, fluid, extraluminal air or acute finding such as bowel obstruction. She has an open midline incision which I believe is healing nicely, does not appear to be infected and the wound VAC was removed. She also has a G tube which has been leaking, but is not quite ready to be removed. This has been clamped, and she has been eating regular food at [facility]. PLAN: 1. The patient is going to be admitted to the medical service and I discussed her care with Dr. Coleman. He will manage her blood sugars, IV fluids, and cultures will be obtained. 2. I will write wound care instructions including wet to dry dressings for the midline and skin care which will be started on the left upper abdominal wall. 3. I will probably remove the G-tube later this week. 4. There is no indication for any surgical intervention at this point. 5. We will follow her closely with you. I did discuss all of these with Dr. Coleman. [id number]/[facility] #: [id number] [facility] MED[facility] CENTERBriseyda
[2016-04-24] MEDS: Heparin VIAL(*) 5000 UNITS/ML VIAL (FIVE THOUSAND) SUBCUT SCH ×4 (00:11→21:19)
[2016-04-24] MEDS: Insulin LISPRO* 1 UNITS UNIT SUBCUT SCH ×4 (00:50→18:02)
[2016-04-24] MEDS: Piperac/Tazob 3.375 gm in NS* 3.375 GM/100 ML BAG IVPB SCH ×4 (01:52→20:50)
--- NOTE | 2016-04-24 02:31 | HP ---
HISTORY AND PHYSICAL: DATE OF ADMISSION: 04/23/16 CHIEF COMPLAINT: Wound VAC not working. HISTORY OF PRESENT ILLNESS: The patient is a 60-year-old woman recently hospitalized at [facility] who at that time presented with abdominal pain and was found to have significant portal venous air. The patient was taken to the OR at that time and had 2 segments of bowel that need to be removed. The patient did have them reanastomosed. Wound VAC was placed at that time over the midline incisions and around the G-tube. Apparently, the patient at the nursing facility where she is, the wound VAC was not working and they were consistently worried about a wound infection. Surgery has already seen the patient and will address that point and I am admitting the patient for other medical issues. Luckily the patient has no fevers, or chills, abdominal pain, was not aware of the problem. She has no nausea, vomiting, and no problems with bowel movements and states she is doing quite well except that she is hungry at this time. PAST MEDICAL HISTORY: She has a past medical history significant for the above noted surgery. She has congestive heart failure with an EF of 25% to 30%, both systolic and diastolic dysfunction, alcoholic hepatitis, coronary artery disease , status post CABG, history of DVT in 2015, anxiety, neuropathy, chronic pain, status post AICD placement, multiple falls in the past, and cutaneous allodynia. MEDICATIONS: 1. Tramadol 50 mg every 6 hours as needed. 2. Acetaminophen 650 mg every 6 hours as needed. 3. Nitroglycerin 0.4 mg sublingual q.5 minutes as needed. 4. DuoNeb one nebulizer q.6 hours as needed. 5. Albuterol nebulizer 2 puffs every 4 hours as needed. 6. Prednisolone tab 30 mg daily. 7. Spiriva one capsule inhaled daily. 8. Bumex 1 mg twice daily. 9. Symbicort 2 puffs twice daily. 10. Metformin 1000 mg twice daily. 11. Metoprolol succinate 25 mg twice daily. 12. Gabapentin 300 mg 3 times a day. 13. Famotidine 20 mg twice a day. 14. Spironolactone 50 mg daily. 15. Sertraline 100 mg daily. 16. Omeprazole 20 mg in the morning. 17. Plavix 75 mg daily. 18. Ramipril 5 mg daily. 19. Singulair 10 mg daily. ALLERGIES: She has an allergy/adverse reaction to CODEINE, IOHEXOL, and ASPIRIN. FAMILY HISTORY: Noncontributory. SOCIAL HISTORY: She is now a resident of [facility]. Former alcohol user. REVIEW OF SYSTEMS: A 14-point review of systems completed with the patient as best as possible. All pertinent positives and negatives are in the history of present illness, otherwise is negative. PHYSICAL EXAMINATION GENERAL: Pleasant woman lying in bed, in no acute distress. VITAL SIGNS: Blood pressure 134/91, pulse ox 100% on room air, respiratory rate 17 breaths per minute, heart rate 70 beats per minute, temperature is 98.2 degrees. HEENT: Normocephalic, atraumatic. Pupils equal, round, reactive to light. Moist mucous membranes. NECK: Supple. No JVD, bruits, or palpable thyroid or lymphadenopathy. CHEST: Clear to auscultation and percussion bilaterally. CARDIOVASCULAR: S1, S2 appreciated. ABDOMEN: She does have the wound in the mid abdomen and a G-tube in place, but its soft, it is nontender. EXTREMITIES: No cyanosis, clubbing, or edema. +2 peripheral pulses bilaterally. NEUROLOGIC: Alert and oriented x3, moves all extremities. SKIN: No rashes or abnormalities. DIAGNOSTIC STUDIES/LABORATORY DATA: White count 13.8, hemoglobin 9.9, hematocrit 33, platelets 21,000. Urinalysis is negative except for +3 glucose. Sodium is 132, potassium 3.5, chloride 97, CO2 is 28, BUN 17, creatinine 0.64, glucose is 470, and lactic acid 2.3. CRP 36.9, alkaline phosphatase 106. Abdominal pelvic CT was interpreted by Radiology as probable pulmonary edema associated with the right large and left dependent pleural effusions with no comparison with prior exam. Resolution of previous extensive portal venous gas , right paramidline mid abdomen small bowel anastomosis enteric contrast transverse across the level of the anastomosis negative for small bowel dilatation to indicate obstruction. 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 EKG, normal sinus rhythm at 70 beats per minute. Normal axis. No acute ST-T wave changes, possible LVH. ASSESSMENT AND PLAN: 1. Possible wound dehiscence, possible wound infection. Surgery to address. I will place the patient on vancomycin and Zosyn. Surgery does not think that the patient will need significant intervention. Hopefully the patient can go home in 1 to 2 days. 2. Diabetes mellitus. Hold metformin. Continue sliding scale insulin, but I think the patient will need more metformin as her sugar is coming in from the nursing facility over 400. She may benefit from long acting Lantus. 3. Alcoholic hepatitis, on prednisolone 30 mg daily. I will not give stress dose steroids. I do not think she needs that much of an intervention. If she does go to the OR or it is extensive, we will need to give stress dose steroids. 4. Chronic obstructive pulmonary disease. Continue nebulizers and inhalers, stable. 5. Depression, stable. Continue Zoloft. 6. Hypertension, borderline controlled. Continue current regimen and adjust accordingly. 7. Coronary artery disease, stable. Continue current regimen including Plavix. 8. FEN. N.p.o. after midnight in case of intervention. 9. DVT prophylaxis. Heparin subcu. 10. The patient is a DNR. TIME SPENT: Over 80 minutes was spent on this H and P, more than 45 minutes of which was spent in direct [id number] contact with the patient and physical exam and evaluation. CC: Ramy Gary MD* [id number]/[facility] #: [id number] [facility]
[2016-04-24] MEDS: Spironolactone TAB* 25 MG PO SCH (08:45)
[2016-04-24] MEDS: Clopidogrel TAB* 75 MG PO SCH (08:47)
[2016-04-24] MEDS: Famotidine TAB* 20 MG PO SCH ×2 (08:47→21:17)
[2016-04-24] MEDS: CMCS: Pantoprazole TAB (NF) 40 MG TAB PO SCH (08:47)
[2016-04-24] MEDS: Sertraline* 100 MG TAB PO SCH (08:48)
[2016-04-24] MEDS: Gabapentin CAP(*) 300 MG PO SCH ×3 (08:49→21:17)
[2016-04-24] MEDS: Metoprolol Succinate XL TAB* 25 MG PO SCH ×2 (08:49→21:19)
[2016-04-24] MEDS: Tiotropium CAP.INH* CAP.INH/18 MCG (USE ORDER SET !) INH SCH (08:50)
[2016-04-24] MEDS: Bumetanide TAB* 1 MG PO SCH ×2 (08:55→17:56)
[2016-04-24] MEDS: Mometasone/Formoter 200/5 MDI INH SCH ×2 (08:56→20:10)
[2016-04-24] MEDS ORDERED: Ramipril CAP* 5 MG PO SCH (09:00)
[2016-04-24] MEDS ORDERED: Spiriva Inhaler DEVICE* 1 EACH DEVICE INH ONE (09:00)
[2016-04-24] MEDS: PrednisoLONE LIQ 3 MG/ML* 15 MG/5 ML UDC PO SCH (09:04)
--- NOTE | 2016-04-24 09:04 | PN ---
Subjective Date of Service: 04/24/16 Interval History: Patient seen and examined at bedside. Pt states that she is feeling well today. Denies fever, chills, shortness of breath, chest discomfort, N/V/D. Pt is concerned about getting snacks during the day because she is a diabetic. Pt had a non-hospital DNR, discussed this with Pt and she wishes to be a full code. Family History: Unchanged from Admission Social History: Unchanged from Admission Past Medical History: Unchanged from Admission Objective Active Medications: Acetaminophen (Tylenol Tab*) 650 mg PO Q6H PRN Reason: PAIN Albuterol (Ventolin Hfa Inhaler*) 2 puff INH Q4H PRN Reason: SHORTNESS OF BREATH Albuterol/Ipratropium (Duoneb Neb.Viola*) 1 neb INH Q6H PRN Reason: SHORTNESS OF BREATH Bumetanide (Bumex Tab*) 1 mg PO 0900,1800 GENARO Clopidogrel Bisulfate (Plavix Tab*) 75 mg PO DAILY GENARO Device (Tiotropium Inhaler Device*) 1 each INH DAILY ONE Dextrose (D50w Syringe 50 Ml*) 12.5 gm IV PUSH .FOR FS < 60 - SS PRN Reason: FS < 60 Famotidine (Pepcid Tab*) 20 mg PO BID GENARO Gabapentin (Neurontin Cap(*)) 300 mg PO TID GENARO Heparin Sodium (Porcine) (Heparin Vial(*)) 5,000 units SUBCUT Q8HR GENARO Sodium Chloride (Ns 0.9% 1000 Ml*) 1,000 mls @ 100 mls/hr IV PER RATE GENARO Piperacillin Sod/Tazobactam Sod (Zosyn 3.375 Gm In Ns Premix*) 3.375 gm in 100 mls @ 200 mls/hr IVPB Q6H GENARO Vancomycin HCl 1,000 mg/ (Sodium Chloride) 250 mls @ 166.667 mls/hr IVPB Q8H GENARO Insulin Human Lispro (Humalog*) 0 units SUBCUT Q6HR GENARO Metoprolol Succinate (Toprol Xl Tab*) 25 mg PO BID GENARO Mometasone Furoate/Formoterol Fumar (Dulera 200/5 Mdi*) 2 puff INH BID GENARO Nitroglycerin (Nitroglycerin Tab 0.4 Mg*) 0.4 mg SL Q5M PRN Reason: pain Ondansetron HCl (Zofran Inj*) 4 mg IV Q4H PRN Reason: NAUSEA Pantoprazole Sodium (Protonix Tab (Nf)) 20 mg PO DAILY@0730 [facility] Pharmacy Consult (Vancomycin Per Pharmacy*) 1 note FOLLOW UP . PRN Reason: PER PROTOCOL Pharmacy Profile Note (Vancomycin Trough Check) 1 note FOLLOW UP 729 [facility]: 04/25/16 07:31 Prednisolone Sodium Phosphate (Prednisolone Liq 3 Mg/Ml 5 Ml Udc*) 20 mg PO DAILY [facility] Stop: 04/27/16 09:01 Prednisolone Sodium Phosphate (Prednisolone Liq 3 Mg/Ml 5 Ml Udc*) 10 mg PO DAILY [facility] Stop: 05/01/16 09:01 Prednisolone Sodium Phosphate (Prednisolone Liq 3 Mg/Ml 5 Ml Udc*) 5 mg PO DAILY [facility] Stop: 05/05/16 09:01 Ramipril (Altace Cap*) 5 mg PO DAILY [facility] Sertraline HCl (Zoloft*) 100 mg PO DAILY [facility] Spironolactone (Aldactone Tab*) 50 mg PO DAILY [facility] Tiotropium [place] (Spiriva Cap.Inh*) 1 cap INH DAILY [facility] Tramadol HCl (Ultram*) 50 mg PO Q6H PRN Reason: PAIN Vital Signs 04/23/16 04/23/16 04/23/16 22:00 22:20 23:15 Temperature 97.6 F Pulse Rate 70 70 69 Respiratory 17 16 16 Rate Blood Pressure 144/52 144/52 143/54 (mmHg) O2 Sat by Pulse 100 100 Oximetry 04/24/16 04/24/16 04/24/16 02:24 03:17 07:21 Temperature 98.6 F 98.6 F Pulse Rate 69 70 Respiratory 18 16 16 Rate Blood Pressure 139/39 132/53 (mmHg) O2 Sat by Pulse 100 100 Oximetry Oxygen Devices in Use Now: Nasal Cannula - 2L Appearance: NAD, laying in bed. Eyes: No Scleral Icterus, PERRLA Ears/Nose/Mouth/Throat: NL Teeth, Lips, Gums, Mucous Membranes Moist Neck: NL Appearance and Movements; NL JVP, Trachea Midline Respiratory: Symmetrical Chest Expansion and Respiratory Effort, Clear to Auscultation Cardiovascular: NL Sounds; No Murmurs; No JVD, RRR Abdominal: NL Sounds; No Tenderness; No Distention Extremities: No Edema Skin: - - Dressing to midline abdomin clean, dry and intact. Neurological: NL Muscle Strength and Tone Lines/Tubes/Other Access: Clean, Dry and Intact Peripheral IV - site benign. Nutrition: Taking PO's Result Diagrams: 04/24/16 09:17 04/23/16 17:20 Additional Lab and Data: Assess/Plan/Problems-Billing Assessment: Ms. Smith is a 60 yo female with PMH significant for CHF, alcoholic hepatitis , CAD, DM who presented to the emergency room with concern for a surgical wound infection and hyperglycemia. - Patient Problems (1) Abnormal surgical wound Code(s): T81.9XXA - UNSPECIFIED COMPLICATION OF PROCEDURE, INITIAL ENCOUNTER SNOMED Code(s): 512025070 Comment: - Open midline abdominal wound, per surgery is healing nice with no signs of infection. - CT abdomen shows no abscess, fluid or acute findings. - Continue wet to dry dressing to midline ABD incision per surgery. - Continue Vanco and Zosyn for now. - Wound Clinic Consult pending. (2) Diabetes mellitus Code(s): E11.9 - TYPE 2 DIABETES MELLITUS WITHOUT COMPLICATIONS SNOMED Code(s) : 51944378 Comment: - Glucose 111 this AM - Continue Lispro SS - Pt may benefit from adding Lantus if glucose continues to be elevated - Resume Metformin at discharge (3) Alcoholic hepatitis Code(s): K70.10 - ALCOHOLIC HEPATITIS WITHOUT ASCITES SNOMED Code(s): 325153520 Comment: - Continue Prednisone - Will need stress dose steroids if she goes to the OR (4) COPD (chronic obstructive pulmonary disease) Code(s): J44.9 - CHRONIC OBSTRUCTIVE PULMONARY DISEASE, UNSPECIFIED SNOMED Code(s): 50924293 Comment: - Stable - Continue Dulera and Spirivia (5) Depression Code(s): F32.9 - MAJOR DEPRESSIVE DISORDER, SINGLE EPISODE, UNSPECIFIED SNOMED Code(s): 09580027 Comment: - Stable - Continue Zoloft (6) HTN (hypertension) Code(s): I10 - ESSENTIAL (PRIMARY) HYPERTENSION SNOMED Code(s): 41165566 Comment: - SBP 130-140's - Continue Metoprolol Succinate and Altace (7) History of coronary artery disease Code(s): Z86.79 - PERSONAL HISTORY OF OTHER DISEASES OF THE CIRCULATORY SYSTEM SNOMED Code(s): 152228923 Comment: - Stable - Continue Metoprolol and Plavix (8) DVT prophylaxis Code(s): EDI3508 - SNOMED Code(s): 359402260 Comment: Continue SQ Heparin (9) Full code status Code(s): Z78.9 - OTHER SPECIFIED HEALTH STATUS SNOMED Code(s): 040302476 Comment: Pt wishes to be a full code at this time. Status and Disposition: OBV. Discharge back to [facility] when medically stable, possibly in the AM.
[2016-04-24] MEDS: Vancomycin(*) 1,000 MG in NS 0.9% 250 ML* 250 ML IVPB SCH ×3 (09:08→23:57)
[2016-04-24 09:24] LABS: Hematocrit 30 % (35-47); Hemoglobin 9.1 g/dl (12.0-16.0); Mean Corpuscular HGB Conc 30 g/dl (31-36); Mean Corpuscular Hemoglobin 25 pg (27-31); Mean Corpuscular Volume 81 fL (80-97); Mean Platelet Volume 8 um3 (7.4-10.4); Red Blood Count 3.71 10^6/ul (4.0-5.4); Red Cell Distribution Width 20 % (10.5-15); White Blood Count 11.3 10^3/ul (3.5-10.8)
[2016-04-24 09:32] LABS: Add Diff/Slide Review? Slide Review Added; Comments Flag Yes
[2016-04-24 10:01] LABS: Hypochromasia 2+; Macrocytosis 1+; Polychromasia 1+
[2016-04-24 10:03] LABS: Microcytosis 1+
--- NOTE | 2016-04-24 13:11 | PN ---
Progress Note - Progress Note SOAP: Subjective: Without complaint today--she has walked in the halls Skin on abdomen rice She is tolerating food Objective: Temp Pulse Resp BP Pulse Ox 97.6 F 70 16 130/52 98 04/24/16 11:20 04/24/16 11:20 04/24/16 12:29 04/24/16 11:20 04/24/16 11:20 PEX: Comfortable Abd is soft and non-distended. The midline incision is clean and open without drainage or odor. Gtube is leaking around catheter with chemical irritation of surrounding skin Bowel sounds are present. Laboratory Last Values WBC 11.3 10^3/ul (3.5-10.8) H 04/24/16 09:17 RBC 3.71 10^6/ul (4.0-5.4) L 04/24/16 09:17 Hgb 9.1 g/dl (12.0-16.0) L 04/24/16 09:17 Hct 30 % (35-47) L 04/24/16 09:17 MCV 81 fL (80-97) 04/24/16 09:17 MCH 25 pg (27-31) L 04/24/16 09:17 MCHC 30 g/dl (31-36) L 04/24/16 09:17 RDW 20 % (10.5-15) H 04/24/16 09:17 Plt Count 222 10^3/ul (150-450) 04/24/16 09:17 MPV 8 um3 (7.4-10.4) 04/24/16 09:17 Neut % (Auto) 89.5 % (38-83) H 04/24/16 09:17 Lymph % (Auto) 6.4 % (25-47) L 04/24/16 09:17 [place] % (Auto) 3.3 % (1-9) 04/24/16 09:17 Eos % (Auto) 0.5 % (0-6) 04/24/16 09:17 Baso % (Auto) 0.3 % (0-2) 04/24/16 09:17 Absolute Neuts (auto) 10.1 10^3/ul (1.5-7.7) H 04/24/16 09:17 Absolute Lymphs (auto) 0.7 10^3/ul (1.0-4.8) L 04/24/16 09:17 Absolute Monos (auto) 0.4 10^3/ul (0-0.8) 04/24/16 09:17 Absolute Eos (auto) 0.1 10^3/ul (0-0.6) 04/24/16 09:17 Absolute Basos (auto) 0 10^3/ul (0-0.2) 04/24/16 09:17 Absolute Nucleated RBC 0.03 10^3/ul 04/24/16 09:17 Nucleated RBC % 0.3 04/24/16 09:17 Normal RBC Morphology Not Reportable 04/24/16 09:17 Polychromasia 1+ 04/24/16 09:17 Hypochromasia 2+ 04/24/16 09:17 Microcytosis 1+ 04/24/16 09:17 Macrocytosis 1+ 04/24/16 09:17 Elliptocytes 1+ 04/24/16 09:17 Sodium 132 mmol/L (133-145) L 04/23/16 17:20 Potassium 3.5 mmol/L (3.5-5.0) 04/23/16 17:20 Chloride 97 mmol/L (101-111) L 04/23/16 17:20 Carbon Dioxide 28 mmol/L (22-32) 04/23/16 17:20 Anion Gap 7 mmol/L (2-11) 04/23/16 17:20 BUN 17 mg/dL (6-24) 04/23/16 17:20 Creatinine 0.64 mg/dL (0.51-0.95) 04/23/16 17:20 Est GFR ( Amer) 120.9 (>60) 04/23/16 17:20 Est GFR (Non-Af Amer) 94.0 (>60) 04/23/16 17:20 BUN/Creatinine Ratio 26.6 (8-20) H 04/23/16 17:20 Glucose 417 mg/dL (70-100) H 04/24/16 00:00 POC Glucose (mg/dL) 214 mg/dL (74-106) H 04/24/16 11:54 Lactic Acid 2.4 mmol/L (0.5-2.0) H* 04/23/16 20:55 Calcium 8.3 mg/dL (8.6-10.3) L 04/23/16 17:20 Total Bilirubin 0.90 mg/dL (0.2-1.0) 04/23/16 17:20 AST 17 U/L (13-39) 04/23/16 17:20 ALT 35 U/L (7-52) 04/23/16 17:20 Alkaline Phosphatase 106 U/L (34-104) H 04/23/16 17:20 C-Reactive Protein 36.90 mg/L (< 5.00) H 04/23/16 17:20 Total Protein 5.6 g/dL (6.4-8.9) L 04/23/16 17:20 Albumin 2.6 g/dL (3.2-5.2) L 04/23/16 17:20 Globulin 3.0 g/dL (2-4) 04/23/16 17:20 Albumin/Globulin Ratio 0.9 (1-3) L 04/23/16 17:20 Amylase 25 U/L (29-103) L 04/23/16 17:20 Lipase 40 U/L (11.0-82.0) 04/23/16 17:20 Urine Color Straw 04/23/16 20:14 Urine Appearance Clear 04/23/16 20:14 Urine pH 7.0 (5-9) 04/23/16 20:14 Ur Specific [place] 1.007 (1.010-1.030) L 04/23/16 20:14 Urine Protein Negative (Negative) 04/23/16 20:14 Urine Ketones Negative (Negative) 04/23/16 20:14 Urine Blood Negative (Negative) 04/23/16 20:14 Urine Nitrate Negative (Negative) 04/23/16 20:14 Urine Bilirubin Negative (Negative) 04/23/16 20:14 Urine Urobilinogen Negative (Negative) 04/23/16 20:14 Ur Leukocyte Esterase Negative (Negative) 04/23/16 20:14 Urine Glucose 3+(>=500 mg/dl) (Negative) H 04/23/16 20:14 Assessment: S/P exlap with small bowel resection re-admitted with wound drainage and elevated blood sugars. CT without acute intra-abdominal findings WBC down today Plan: Continue po diet as tolerated Wound care G-tube d/c'd today--continue skin care as this may continue to drain for several days.
[2016-04-24] MEDS ORDERED: NS 0.9% 1000 ML* 1,000 ML IV SCH (20:01)
--- NOTE | 2016-04-24 20:06 | PN ---
Hospitalist Progress Note Received call from [facility] that Pt had an episode of lightheadedness while in the bathroom with decreased O2 sat and hypotension. 1600: To bedside to examine Pt. Pt was sitting in a chair, states that she is feeling better. Denies lightheadedness at this time. Pt states that she was straining to move her bowels while in the bathroom. Suspect Pt may have vasovagaled. 1900: Return to eval Pt. Pt states that feels ok, denies lightheadedness. BP continues to be soft.
[2016-04-25] MEDS: Piperac/Tazob 3.375 gm in NS* 3.375 GM/100 ML BAG IVPB SCH ×2 (01:42→08:05)
[2016-04-25] MEDS: Heparin VIAL(*) 5000 UNITS/ML VIAL (FIVE THOUSAND) SUBCUT SCH ×2 (05:41→14:00)
[2016-04-25] MEDS ORDERED: Vancomycin Trough Check NOTE FOLLOW UP ONE (07:30)
[2016-04-25] MEDS: Insulin LISPRO* 1 UNITS UNIT SUBCUT SCH ×2 (08:05→14:01)
[2016-04-25] MEDS: CMCS: Pantoprazole TAB (NF) 40 MG TAB PO SCH (08:05)
--- NOTE | 2016-04-25 08:09 | PN ---
Subjective Date of Service: 04/25/16 Interval History: Patient seen and examined at bedside. She reports good appetite and pain control but states, "My throat hurts." Denies fever/chills, CP, SOB, n/v. Family History: Unchanged from Admission Social History: Unchanged from Admission Past Medical History: Unchanged from Admission Objective Active Medications: Acetaminophen (Tylenol Tab*) 650 mg PO Q6H PRN PRN Reason: PAIN Albuterol (Ventolin Hfa Inhaler*) 2 puff INH Q4H PRN PRN Reason: SHORTNESS OF BREATH Albuterol/Ipratropium (Duoneb Neb.Viola*) 1 neb INH Q6H PRN PRN Reason: SHORTNESS OF BREATH Bumetanide (Bumex Tab*) 1 mg PO 0900,1800 [facility] Last Admin: 04/24/16 17:56 Dose: 1 mg Clopidogrel Bisulfate (Plavix Tab*) 75 mg PO DAILY [facility] Last Admin: 04/24/16 08:47 Dose: 75 mg Dextrose (D50w Syringe 50 Ml*) 12.5 gm IV PUSH .FOR FS < 60 - SS PRN PRN Reason: FS < 60 Famotidine (Pepcid Tab*) 20 mg PO BID [facility] Last Admin: 04/24/16 21:17 Dose: 20 mg Gabapentin (Neurontin Cap(*)) 300 mg PO TID [facility] Last Admin: 04/24/16 21:17 Dose: 300 mg Heparin Sodium (Porcine) (Heparin Vial(*)) 5,000 units SUBCUT Q8HR [facility] Last Admin: 04/25/16 05:41 Dose: 5,000 units Piperacillin Sod/Tazobactam Sod (Zosyn 3.375 Gm In Ns Premix*) 3.375 gm in 100 mls @ 200 mls/hr IVPB Q6H [facility] Last Admin: 04/25/16 01:42 Dose: 200 mls/hr Vancomycin HCl 1,000 mg/ (Sodium Chloride) 250 mls @ 166.667 mls/hr IVPB Q8H [facility] Last Admin: 04/24/16 23:57 Dose: 166.667 mls/hr Sodium Chloride (Ns 0.9% 1000 Ml*) 1,000 mls @ 60 mls/hr IV PER RATE [facility] Insulin Human Lispro (Humalog*) 0 units SUBCUT AC [facility] PRN Reason: Protocol Insulin Human Lispro (Humalog*) 0 units SUBCUT [facility] PRN Reason: Protocol Metoprolol Succinate (Toprol Xl Tab*) 25 mg PO BID [facility] Last Admin: 04/24/16 21:19 Dose: 25 mg Mometasone Furoate/Formoterol Fumar (Dulera 200/5 Mdi*) 2 puff INH BID [facility] PRN Reason: Protocol Last Admin: 04/24/16 20:10 Dose: 2 puff Nitroglycerin (Nitroglycerin Tab 0.4 Mg*) 0.4 mg SL Q5M PRN PRN Reason: pain Ondansetron HCl (Zofran Inj*) 4 mg IV Q4H PRN PRN Reason: NAUSEA Pantoprazole Sodium (Protonix Tab (Nf)) 20 mg PO DAILY@0730 [facility] Last Admin: 04/24/16 08:47 Dose: 20 mg Pharmacy Consult (Vancomycin Per Pharmacy*) 1 note FOLLOW UP . PRN PRN Reason: PER PROTOCOL Prednisolone Sodium Phosphate (Prednisolone Liq 3 Mg/Ml 5 Ml Udc*) 20 mg PO DAILY [facility] PRN Reason: Protocol Stop: 04/27/16 09:01 Last Admin: 04/24/16 09:04 Dose: 20 mg Prednisolone Sodium Phosphate (Prednisolone Liq 3 Mg/Ml 5 Ml Udc*) 10 mg PO DAILY [facility] Stop: 05/01/16 09:01 Prednisolone Sodium Phosphate (Prednisolone Liq 3 Mg/Ml 5 Ml Udc*) 5 mg PO DAILY [facility] Stop: 05/05/16 09:01 Ramipril (Altace Cap*) 5 mg PO DAILY [facility] Last Admin: 04/24/16 08:47 Dose: 5 mg Sertraline HCl (Zoloft*) 100 mg PO DAILY [facility] Last Admin: 04/24/16 08:48 Dose: 100 mg Spironolactone (Aldactone Tab*) 50 mg PO DAILY [facility] Last Admin: 04/24/16 08:45 Dose: 50 mg Tiotropium [place] (Spiriva Cap.Inh*) 1 cap INH DAILY [facility] Last Admin: 04/24/16 08:50 Dose: 1 cap Tramadol HCl (Ultram*) 50 mg PO Q6H PRN PRN Reason: PAIN Last Admin: 04/24/16 10:32 Dose: 50 mg Vital Signs 04/24/16 04/24/1617 08:49 09:54 10:32 Temperature Pulse Rate Respiratory 16 16 16 Rate Blood Pressure (mmHg) O2 Sat by Pulse Oximetry 04/24/16 04/24/16 04/24/16 10:48 11:20 12:29 Temperature 97.6 F Pulse Rate 70 Respiratory 16 18 16 Rate Blood Pressure 130/52 (mmHg) O2 Sat by Pulse 98 Oximetry 04/24/16 04/24/16 04/24/16 13:21 14:55 15:05 Temperature Pulse Rate 70 70 Respiratory 16 Rate Blood Pressure 100/37 90/40 (mmHg) O2 Sat by Pulse 100 100 Oximetry 04/24/16 04/24/16 04/24/16 15:21 15:49 19:26 Temperature 97.9 F 99.0 F Pulse Rate 70 70 Respiratory 16 20 17 Rate Blood Pressure 96/40 118/44 (mmHg) O2 Sat by Pulse 100 99 Oximetry 04/24/16 04/24/16 04/24/16 20:00 21:17 23:17 Temperature Pulse Rate Respiratory 18 18 16 Rate Blood Pressure (mmHg) O2 Sat by Pulse Oximetry 04/25/16 04/25/16 04/25/16 00:16 04:00 07:18 Temperature 97.9 F 98.1 F 97.7 F Pulse Rate 70 70 70 Respiratory 16 16 16 Rate Blood Pressure 132/40 132/40 141/51 (mmHg) O2 Sat by Pulse 100 100 100 Oximetry Oxygen Devices in Use Now: Nasal Cannula - 2L Appearance: Female patient, sitting up in bed, in NAD Eyes: PERRLA Ears/Nose/Mouth/Throat: Clear Oropharnyx, Mucous Membranes Moist Neck: NL Appearance and Movements; NL JVP Respiratory: Symmetrical Chest Expansion and Respiratory Effort, Clear to Auscultation Cardiovascular: NL Sounds; No Murmurs; No JVD, RRR Abdominal: NL Sounds; No Tenderness; No Distention Extremities: No Edema Skin: - - dressing to abdomen wet with light serosanguinous drainage. Duoderm to abdomen at G-tube insertion site by report Lines/Tubes/Other Access: Clean, Dry and Intact Peripheral IV Nutrition: Taking PO's Result Diagrams: 04/24/16 09:17 04/23/16 17:20 Additional Lab and Data: Assess/Plan/Problems-Billing Assessment: Ms. Smith is a 60 yo female with PMH significant for CHF, alcoholic hepatitis , CAD, DM who presented to the emergency room with concern for a surgical wound infection and hyperglycemia. - Patient Problems (1) Abnormal surgical wound Code(s): T81.9XXA - UNSPECIFIED COMPLICATION OF PROCEDURE, INITIAL ENCOUNTER Comment: - Open midline abdominal wound, per surgery is healing nice with no signs of infection. - CT abdomen shows no abscess, fluid or acute findings. - Continue wet to dry dressing to midline ABD incision per surgery. - Patient has been afebrile, no s/s of infection at this time; stop Vanco and Zosyn - Wound Clinic Consult recommends duoderm to protect skin at G-tube incision site; G-tube has been removed. (2) Diabetes mellitus Code(s): E11.9 - TYPE 2 DIABETES MELLITUS WITHOUT COMPLICATIONS Comment: - Glucose 362 this AM - Continue Lispro SS, add carbohydrate coverage - Start Lantus 10 units this evening - Resume Metformin at discharge - Prednisolone likely contributing to elevated BG (3) Alcoholic hepatitis Code(s): K70.10 - ALCOHOLIC HEPATITIS WITHOUT ASCITES Comment: - Continue Prednisolone - Will need stress dose steroids if she goes to the OR (4) COPD (chronic obstructive pulmonary disease) Code(s): J44.9 - CHRONIC OBSTRUCTIVE PULMONARY DISEASE, UNSPECIFIED Comment: - Stable, continue Dulera and Spiriva. (5) Depression Code(s): F32.9 - MAJOR DEPRESSIVE DISORDER, SINGLE EPISODE, UNSPECIFIED Comment: - Stable, continue Zoloft. (6) HTN (hypertension) Code(s): I10 - ESSENTIAL (PRIMARY) HYPERTENSION Comment: - SBP trending mostly around 130-140's - Continue metoprolol succinate and Altace with hold parameters (7) History of coronary artery disease Code(s): Z86.79 - PERSONAL HISTORY OF OTHER DISEASES OF THE CIRCULATORY SYSTEM Comment: - Stable, continue metoprolol and Plavix (8) DVT prophylaxis Status: Acute Comment: - Continue SQ Heparin (9) Full code status Code(s): Z78.9 - OTHER SPECIFIED HEALTH STATUS Comment: - Pt wishes to be a full code at this time. Status and Disposition: OBV. Discharge back to [facility] when medically stable.
[2016-04-25] MEDS ORDERED: Ramipril CAP* 5 MG PO SCH (08:18)
[2016-04-25] MEDS ORDERED: Metoprolol Succinate XL TAB* 25 MG PO SCH (08:18)
[2016-04-25] MEDS: Vancomycin(*) 1,000 MG in NS 0.9% 250 ML* 250 ML IVPB SCH (08:35)
[2016-04-25] MEDS: Tiotropium CAP.INH* CAP.INH/18 MCG (USE ORDER SET !) INH SCH (09:44)
[2016-04-25] MEDS: Spironolactone TAB* 25 MG PO SCH (09:44)
[2016-04-25] MEDS: Bumetanide TAB* 1 MG PO SCH (09:44)
[2016-04-25] MEDS: Clopidogrel TAB* 75 MG PO SCH (09:45)
[2016-04-25] MEDS: Sertraline* 100 MG TAB PO SCH (09:45)
[2016-04-25] MEDS: Famotidine TAB* 20 MG PO SCH (09:45)
[2016-04-25] MEDS: Gabapentin CAP(*) 300 MG PO SCH ×2 (09:45→14:00)
[2016-04-25] MEDS: PrednisoLONE LIQ 3 MG/ML* 15 MG/5 ML UDC PO SCH (09:46)
[2016-04-25] MEDS: Mometasone/Formoter 200/5 MDI INH SCH (09:46)
[2016-04-25] MEDS ORDERED: Benzocaine/Menthol LOZ* 1 LOZENGE PO PRN (09:59)
[2016-04-25] MEDS ORDERED: Insulin LISPRO* 1 UNITS UNIT SUBCUT SCH (11:30)
[2016-04-25 12:38] VITALS: BP 118/45
--- NOTE | 2016-04-25 13:32 | DS ---
DISCHARGE/TRANSFER SUMMARY: DATE OF ADMISSION: 04/23/16 DATE OF DISCHARGE: 04/25/16 PROVIDER: Jude Gentile NP ATTENDING PHYSICIAN: Dr. Joslyn Alvarez * (dictated by Jude Gentile NP.) CONSULTING PHYSICIAN: Dr. Ramy Gary of Surgery. PRIMARY DISCHARGE DIAGNOSES: 1. Postoperative open abdominal wound with wet to dry dressing, does not appear to be infected. 2. Alcoholic hepatitis. SECONDARY DISCHARGE DIAGNOSES: 1. Small bowel ischemia and ileus, status post exploratory lap and resection of 2 portions of small bowel. There were 2 reanastomosis of small bowel and a Antolin gastrostomy tube insertion. 2. Congestive heart failure with systolic and diastolic dysfunction, EF 25% to 30%. 3. Coronary artery disease, status post coronary artery bypass grafting. 4. History of DVT in 2014. 5. Anxiety. 6. Neuropathy. 7. Chronic pain. 8. Status post AICD placement. 9. Cutaneous allodynia. 10. Diabetes mellitus. 11. Chronic obstructive pulmonary disease. 12. Depression. 13. Hypertension. MEDICATIONS AT DISCHARGE: 1. Tramadol 50 mg q.6 hours p.r.n. 2. Tylenol 650 q.6 hours p.r.n. 3. Nitroglycerin 0.4 mg sublingual q.5 minutes p.r.n. 4. DuoNeb one nebulizer inhaled q.6 hours p.r.n. 5. Albuterol inhaler 2 puffs inhaled q.4 hours p.r.n. 6. Tiotropium 1 capsule inhaled daily. 7. Bumex 1 mg b.i.d. 8. Symbicort 160/4.5 two puffs inhaled b.i.d. 9. Metformin 1000 mg b.i.d. 10. Metoprolol succinate XL 25 mg b.i.d. 11. Gabapentin 300 mg t.i.d. 12. Famotidine 20 mg b.i.d. 13. Spironolactone 50 mg daily. 14. Zoloft 100 mg daily. 15. Omeprazole 20 mg daily. 16. Clopidogrel 75 mg daily. 17. Ramipril 5 mg daily. 18. Singulair 10 mg daily. 19. Prednisolone 10 mg x2 days, then 5 mg x2 days, then discontinue. This is a change in her previous dosing. HOSPITAL COURSE OF STAY: For full details, please refer to the H and P provided by Dr. Daryl Coleman on 04/23/16. In summary, Ms. Smith is a 60-year-old female with a past medical history as stated above, who was referred to the ED by Rd for her wound VAC to be evaluated. Apparently, it was not working and they were worried and concerned for a wound infection. The patient did not have any fevers, chills, or abdominal pain and denied any nausea, vomiting, or any bowel movement issues. There was concern that her white blood cell count was elevated. Surgery did evaluate the patient in the ED, did not feel the patient would need significant intervention, but was in agreement with admission for observation and further evaluation of the wound. A CT of the abdomen and pelvis was done which showed: 1. Probable pulmonary edema with associated right larger than left dependent pleural effusions, new compared with the prior exam. 2. Resolution of previous extensive portal venous gas. 3. Right paramidline mid abdomen small bowel anastomosis. Enteric contrast ___ ___ across the level of the anastomosis. Negative for small bowel dilatation to indicate obstruction. 4. Dehiscent dermal and subcutaneous wound at the midline anterior abdominal wall both above and below the umbilicus. Suggestion of wound packing. No definitive loculated abscess collection evident. 5. Extensive peripheral vascular disease. 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 Per the CT, there were no concerns for abscesses, fluids, or acute findings. The wound remained open with a wet to dry dressing per Surgery. The patient was started on vanco and Zosyn at the time of admission, which was continued for 2 days. The Wound Clinic did see the patient, who recommended DuoDERM dressings to the area surrounding the G-tube insertion site where the patient had irritation. The G-tube was subsequently removed by Surgery and does have some drainage. In discussion with Dr. Gary, he has recommended discontinuation of the wound VAC and continue with wet to dry dressings to the abdominal incisions and dressing over the G-tube insertion site to catch any drainage and to change this b.i.d. and as needed in order to keep the area dry. She does not have any acute concerns for infection at this time, but I would like to see her in close followup and asked that Rd schedule her appointment within the next week that the patient is seen at [facility]. In regards to the patient's alcoholic hepatitis, LFTs at the time of admission were improved and there was a question from Surgery as to when we could discontinue the steroids in order to help promote better wound healing. I did discuss the patient with Dr. Medel, who did review the patient' s labs and records; who recommended that we could taper the steroids faster. He stated that the patient does look like she has improved, and was in agreement with the plan to discontinue the steroids at a faster schedule. It appeared that the patient had been on steroids for quite sometime, most likely prior to her previous admission to our hospital at the beginning of April. Looks like she had been started on the steroids at [facility], but it is unclear as to when they officially started. However, she appears to have received and appropriate length of treatment for her condition. At the time of discharge, the patient is without compliant other than occasional sore throat, for which she received throat lozenges and voice improvement and eradication of her symptoms. She denies any fever, chills, chest pain, or shortness of breath. She denies abdominal pain outside her baseline and denies any nausea or vomiting. She is tolerating food well and is passing flatus and is having bowel movements. CONCERNS AT DISCHARGE: The patient will be discharged to [facility] on 04/25/16 with a plan to follow up with Dr. Gary. She should follow up with the facility physician as necessary. DIET: Consistent carbohydrate diet. ACTIVITY: As tolerated. CONDITION: Stable. DISPOSITION: To [facility]. TIME SPENT: Time spent on this discharge was approximately 45 minutes. Again this is only a brief summary of the patient's hospital course of stay. For full details, please refer to the full medical record. If you have any further questions or need further assistance, please feel free to contact me at [phone]. JUDE GENTILE NP CC: Dr. Gary.* [id number]/CPS #: [id number] [facility]
[2016-04-25] MEDS ORDERED: Insulin GLARGINE(*) 1 UNITS UNIT SUBCUT SCH (20:00)
[2016-04-28] MEDS ORDERED: PrednisoLONE LIQ 3 MG/ML* 15 MG/5 ML UDC PO SCH (09:00)
[2016-05-02] MEDS ORDERED: PrednisoLONE LIQ 3 MG/ML* 15 MG/5 ML UDC PO SCH (09:00)
== END 2016-04-25 14:40 ==
LOC: ED 15:44 → SSU 21:38
PROVIDERS: ADMIT Internal Medicine; ATTEND Internal Medicine
DX: T81.9XXA Unspecified complication of procedure, initial encounter (principal); L76.82 Other postprocedural complications of skin and subcutaneous tissue; Y83.8 Other surgical procedures as the cause of abnormal reaction of the patient, or of later complication, without mention of misadventure at the time of the procedure; Y92.9 Unspecified place or not applicable; K70.10 Alcoholic hepatitis without ascites; D72.829 Elevated white blood cell count, unspecified; I11.0 Hypertensive heart disease with heart failure; I50.9 Heart failure, unspecified; I25.10 Atherosclerotic heart disease of native coronary artery without angina pectoris; Z95.1 Presence of aortocoronary bypass graft; Z86.718 Personal history of other venous thrombosis and embolism; E11.40 Type 2 diabetes mellitus with diabetic neuropathy, unspecified; Z79.84 Long term (current) use of oral hypoglycemic drugs; Z95.810 Presence of automatic (implantable) cardiac defibrillator; J44.9 Chronic obstructive pulmonary disease, unspecified; F32.9 Major depressive disorder, single episode, unspecified; R42 Dizziness and giddiness; Z79.899 Other long term (current) drug therapy; Z88.5 Allergy status to narcotic agent; Z88.8 Allergy status to other drugs, medicaments and biological substances; Z88.6 Allergy status to analgesic agent; Z79.02 Long term (current) use of antithrombotics/antiplatelets; Z87.891 Personal history of nicotine dependence; I73.9 Peripheral vascular disease, unspecified; R94.31 Abnormal electrocardiogram [ECG] [EKG]
CPT/HCPCS: 36415; 74176; 80053; 80202; 81003; 82150; 82947; 83605; 83690; 85025; 86140; 87040; 93005; 94640; 94760; 96365; 96366; 96367; 96372; 99284; A9270-GY; G0378; G8978-GP-CJ; G8979-GP-CI; G8980-GP-CI; J1644; J2543; J3370; J7510

== ENCOUNTER 2016-05-15 13:59 | Inpatient (IN) | payer OTHER, MEDICAID ==
[2016-05-15] MEDS ORDERED: Piperac/Tazob 3.375 gm in NS* 3.375 GM/100 ML BAG IVPB ONE (14:42)
[2016-05-15] MEDS: NS 0.9% 1000 ML* 2,000 ML IV ONE ×2 (15:00→16:32)
[2016-05-15 15:05] LABS: Hematocrit 43 % (35-47); Mean Corpuscular HGB Conc 30 g/dl (31-36); Mean Corpuscular Hemoglobin 24 pg (27-31); Mean Corpuscular Volume 79 fL (80-97); Mean Platelet Volume 8 um3 (7.4-10.4); Red Blood Count 5.48 10^6/ul (4.0-5.4); Red Cell Distribution Width 19 % (10.5-15); White Blood Count 22.6 10^3/ul (3.5-10.8)
[2016-05-15 15:06] LABS: Add Diff/Slide Review? Slide Review Added; Comments Flag Yes
[2016-05-15 15:19] LABS: Albumin 3.2 g/dL (3.2-5.2); BUN/Creatinine Ratio 54.4 (8-20); C Reactive Protein 361.13 mg/L (< 5.00); EGFR African American 42.6 (>60); EGFR Non-African American 33.1 (>60); Globulin 4.8 g/dL (2-4); Potassium 4.4 mmol/L (3.5-5.0); Total Bilirubin 0.8 mg/dL (0.2-1.0)
[2016-05-15 15:22] LABS: Troponin I 0.08 ng/mL (<0.04)
[2016-05-15] MEDS ORDERED: NS 0.9% 1000 ML* 1,000 ML IV ONE ×2 (15:24→21:32)
[2016-05-15 15:36] LABS: Immature Granulocytes 23 % (0-9); Metamyelocytes % 1 % (0-2); Neutrophil % 68 % (38-83)
[2016-05-15 15:37] LABS: Hypochromasia 1+
[2016-05-15] MEDS ORDERED: HYDROmorphone* 1 MG/ML 1 ML SYR IV ONE (15:40)
[2016-05-15] MEDS ORDERED: metroNIDAZOLE IV 500 MG/100ML* 500 MG/100 ML BAG IVPB ONE (15:40)
[2016-05-15] MEDS ORDERED: Ondansetron INJ* 2 MG/ML VIAL IV ONE (15:40)
--- NOTE | 2016-05-15 15:48 | RAD ---
CLINICAL HISTORY: Diffuse abdominal pain COMPARISON: April 23, 2016 TECHNIQUE: Multiple contiguous axial CT scans were obtained of the abdomen and pelvis, without intravenous contrast enhancement. Coronal and sagittal multiplanar reformations are submitted for review. Oral contrast was not administered. FINDINGS: The study is limited by the lack of intravenous contrast. This limits evaluation of the solid organs and vasculature. LUNG BASES: The lung bases are clear. LIVER: There is extensive portal venous gas throughout the liver BILE DUCTS: There is no intrahepatic or extrahepatic biliary dilatation. GALLBLADDER: The gallbladder is normal, without pericholecystic inflammatory change. PANCREAS: The pancreas is atrophic. SPLEEN: Normal in size and appearance. UPPER GI TRACT: Evaluation of the gastrointestinal tract is limited by incomplete gastric distention. The upper GI tract is unremarkable. SMALL BOWEL AND MESENTERY: There is diffuse distention of the small bowel without transition point. COLON: There is pneumatosis intestinalis along the distal transverse and descending colon ADRENALS: Normal bilaterally. KIDNEYS: The kidneys are normal in shape, size, contour, and axis. There is no hydronephrosis or nephrolithiasis. BLADDER: The bladder is smooth in contour. PELVIC ORGANS: The uterus and adnexa are grossly normal for technique. AORTA: There is extensive atherosclerosis of the ureter with stable mild ectasia IVC: Unremarkable LYMPH NODES: There is no lymphadenopathy by size criteria. ABDOMINAL WALL: There is no evidence for abdominal wall hernia. BONES AND SOFT TISSUES: There are chronic compression deformities of L3 and L4. There is a scoliotic curvature of the spine. Degenerative changes are noted along the spine OTHER: None IMPRESSION: COLONIC PNEUMATOSIS AND EXTENSIVE PORTAL VENOUS GAS MOST CONSISTENT WITH ISCHEMIC BOWEL. PRELIMINARY FINDINGS WERE DISCUSSED WITH DR. NORIEGA IN THE EMERGENCY DEPARTMENT AT APPROXIMATELY 3:45 PM ON MAY 15, 2016.
--- NOTE | 2016-05-15 15:54 | ED ---
Luis Steve Matthew, scribed for Michael Benites MD on 05/15/16 at 1448 . GI/ HPI - HPI Summary HPI Summary: A 60 y/o female presents to the ED with constant diffuse abdominal tenderness, which has increased over the last 24 hours. The pain is rated 10/10 in severity. The patient had a bowel resection approximately 1 month ago and has been having an increased pain for the past 24 hours. Associated symptoms include n/v/d. The pain is worse with movement. - History of Current Complaint Time Seen by Provider: 05/15/16 14:31 Stated Complaint: ABD PAIN Hx Obtained From: Patient Onset/Duration: Started Days Ago - 1, Atraumatic, Still Present Timing: Constant Severity: Moderate Current Severity: Moderate Location of Pain: Diffuse Associated Signs and Symptoms: Positive: Nausea, Vomiting, Diarrhea - Allergy/Home Medications Allergies/Adverse Reactions: Allergies Allergy/AdvReac Type Severity Reaction Status Date / Time Codeine Allergy Mild Hives Verified 04/09/16 22:42 Iohexol Allergy Hives Verified 04/09/16 22:42 Aspirin [ASA] AdvReac Mild Hives Verified 04/09/16 22:42 Home Medications: Home Medications Albuterol Sulfate [Proair Respiclick] 2 puff INH Q4HR PRN 05/15/16 [History Confirmed 05/15/16] Insulin GLARGINE(*) [Lantus(*)] 10 units SUBCUT BEDTIME 05/15/16 [History Confirmed 05/15/16] Lactobacillus (NF) [Culturelle (NF)] 10 tab PO 1700 05/15/16 [History Confirmed 05/15/16] Nitroglycerin TAB 0.4 MG* 0.4 mg SL Q5M PRN 05/15/16 [History Confirmed 05/15/16 ] Nystatin SUSPENSION* [Nystatin*] 100,000 unit SWISH SWAL 0930,1530,2130 [History Confirmed 05/15/16] PMH/Surg Hx/FS Hx/Imm Hx Endocrine/Hematology History: Reports: Hx Diabetes Cardiovascular History: Reports: Hx Congestive Heart Failure, Hx Coronary Artery Disease, Hx Embolism, Hx Hypertension, Hx Pacemaker/ICD, Hx Peripheral Vascular Disease, Other Cardiovascular Problems/Disorders - "Heart condition" Respiratory History: Reports: Hx Chronic Obstructive Pulmonary Disease (COPD) GI History: Reports: Hx Cirrhosis, Other GI Disorders - CURRENT ISSUE WITH ISCHEMIC BOWEL History: Reports: Other Problems/Disorders - renal insufficiency Neurological History: Reports: Hx Dementia - Surgical History Surgery Procedure, Year, and Place: CABG Infectious Disease History: Reports: Hx Hepatitis - liver disease r/t ETOH abuse Denies: Traveled Outside the [place] in Last 30 Days - Family History Known Family History: Positive: None Family History: LEVEL 5 CAVEAT - UNOBTAINABLE - Social History Alcohol Use: None Alcohol Amount: PAST HX OF ABUSE Hx Substance Use: No Substance Use Type: Reports: None Hx Tobacco Use: Yes Smoking Status (MU): Former Smoker Type: Cigarettes Have You Smoked in the Last Year: Yes Review of Systems Constitutional: Negative Eyes: Negative ENT: Negative Cardiovascular: Negative Respiratory: Negative Positive: Abdominal Pain - Diffuse adominal pain , Vomiting, Diarrhea, Nausea Genitourinary: Negative Musculoskeletal: Negative Skin: Negative Neurological: Negative Psychological: Normal All Other Systems Reviewed And Are Negative: Yes Physical Exam Triage Information Reviewed: Yes Vital Signs On Initial Exam: Initial Vitals Temp Pulse Resp BP Pulse Ox 97.2 F 100 11 104/65 100 05/15/16 14:20 05/15/16 14:20 05/15/16 14:20 05/15/16 14:20 05/15/16 14:20 Vital Signs Reviewed: Yes Appearance: Positive: Well-Appearing, No Pain Distress Skin: Positive: Other - Open incision wound on the abodmen healing through secondary intention and a lateral wound with surrounding cellulitis. Head/Face: Positive: Normal Head/Face Inspection Eyes: Positive: Normal ENT: Positive: Normal ENT inspection Neck: Positive: Supple, Nontender Respiratory/Lung Sounds: Positive: Clear to Auscultation, Breath Sounds Present Cardiovascular: Positive: RRR Abdomen Description: Positive: Soft, Other: - Diffuse abdominal tenderness Bowel Sounds: Positive: Present Musculoskeletal: Positive: Normal, Strength/ROM Intact Neurological: Positive: Normal Diagnostics - Vital Signs Vital Signs Temp Pulse Resp BP Pulse Ox 05/15/16 14:36 98 05/15/16 14:20 97.2 F 100 11 104/65 100 - Laboratory Lab Results: Lab Results 05/15/16 05/15/16 05/15/16 Range/Units 14:55 14:55 14:55 WBC 22.6 H (3.5-10.8) 10^3/ul RBC 5.48 H (4.0-5.4) 10^6/ul Hgb 13.0 (12.0-16.0) g/dl Hct 43 (35-47) % MCV 79 L (80-97) fL MCH 24 L (27-31) pg MCHC 30 L (31-36) g/dl RDW 19 H (10.5-15) % Plt Count 599 H D (150-450) 10^3/ul MPV 8 (7.4-10.4) um3 Immature Gran % (Auto) 23 H (0-9) % Neut % (Auto) 94.6 H (38-83) % Lymph % (Auto) 2.2 L (25-47) % [place] % (Auto) 3.1 (1-9) % Eos % (Auto) 0 (0-6) % Baso % (Auto) 0.1 (0-2) % Absolute Neuts (auto) 21.4 H (1.5-7.7) 10^3/ul Absolute Lymphs (auto) 0.5 L (1.0-4.8) 10^3/ul Absolute Monos (auto) 0.7 (0-0.8) 10^3/ul Absolute Eos (auto) 0 (0-0.6) 10^3/ul Absolute Basos (auto) 0 (0-0.2) 10^3/ul Absolute Nucleated RBC 0.01 10^3/ul Neutrophils % 68 (38-83) % Band Neutrophils % 22 H (0-8) % Lymphocytes % 6 L (25-47) % Monocytes % 3 (0-13) % Metamyelocytes % 1 (0-2) % Nucleated RBC % 0 Normal RBC Morphology Not Reportable Hypochromasia 1+ INR (Anticoag Therapy) 1.27 H (0.89-1.11) APTT 27.9 (26.0-36.3) seconds Sodium 132 L (133-145) mmol/L Potassium 4.4 (3.5-5.0) mmol/L Chloride 93 L (101-111) mmol/L Carbon Dioxide 20 L (22-32) mmol/L Anion Gap 19 H (2-11) mmol/L BUN 86 H (6-24) mg/dL Creatinine 1.58 H (0.51-0.95) mg/dL Est GFR ( Amer) 42.6 (>60) Est GFR (Non-Af Amer) 33.1 (>60) BUN/Creatinine Ratio 54.4 H (8-20) Glucose 300 H (70-100) mg/dL Lactic Acid (0.5-2.0) mmol/L Calcium 10.0 (8.6-10.3) mg/dL Total Bilirubin 0.80 (0.2-1.0) mg/dL AST 121 H (13-39) U/L ALT 54 H (7-52) U/L Alkaline Phosphatase 142 H (34-104) U/L Troponin I 0.08 H* (<0.04) ng/mL C-Reactive Protein 361.13 H (< 5.00) mg/L Total Protein 8.0 (6.4-8.9) g/dL Albumin 3.2 (3.2-5.2) g/dL Globulin 4.8 H (2-4) g/dL Albumin/Globulin Ratio 0.7 L (1-3) 05/15/16 Range/Units 14:55 WBC (3.5-10.8) 10^3/ul RBC (4.0-5.4) 10^6/ul Hgb (12.0-16.0) g/dl Hct (35-47) % MCV (80-97) fL MCH (27-31) pg MCHC (31-36) g/dl RDW (10.5-15) % Plt Count (150-450) 10^3/ul MPV (7.4-10.4) um3 Immature Gran % (Auto) (0-9) % Neut % (Auto) (38-83) % Lymph % (Auto) (25-47) % [place] % (Auto) (1-9) % Eos % (Auto) (0-6) % Baso % (Auto) (0-2) % Absolute Neuts (auto) (1.5-7.7) 10^3/ul Absolute Lymphs (auto) (1.0-4.8) 10^3/ul Absolute Monos (auto) (0-0.8) 10^3/ul Absolute Eos (auto) (0-0.6) 10^3/ul Absolute Basos (auto) (0-0.2) 10^3/ul Absolute Nucleated RBC 10^3/ul Neutrophils % (38-83) % Band Neutrophils % (0-8) % Lymphocytes % (25-47) % Monocytes % (0-13) % Metamyelocytes % (0-2) % Nucleated RBC % Normal RBC Morphology Hypochromasia INR (Anticoag Therapy) (0.89-1.11) APTT (26.0-36.3) seconds Sodium (133-145) mmol/L Potassium (3.5-5.0) mmol/L Chloride (101-111) mmol/L Carbon Dioxide (22-32) mmol/L Anion Gap (2-11) mmol/L BUN (6-24) mg/dL Creatinine (0.51-0.95) mg/dL Est GFR ( Amer) (>60) Est GFR (Non-Af Amer) (>60) BUN/Creatinine Ratio (8-20) Glucose (70-100) mg/dL Lactic Acid 6.2 H* (0.5-2.0) mmol/L Calcium (8.6-10.3) mg/dL Total Bilirubin (0.2-1.0) mg/dL AST (13-39) U/L ALT (7-52) U/L Alkaline Phosphatase (34-104) U/L Troponin I (<0.04) ng/mL C-Reactive Protein (< 5.00) mg/L Total Protein (6.4-8.9) g/dL Albumin (3.2-5.2) g/dL Globulin (2-4) g/dL Albumin/Globulin Ratio (1-3) Result Diagrams: 05/15/16 14:55 05/15/16 14:55 Lab Statement: Any lab studies that have been ordered have been reviewed, and results considered in the medical decision making process. - EKG 14:22 Cardiac Rate: Tachycardia - 101 bpm EKG Rhythm: Sinus Rhythm EKG Interpretation: ST depression laterally EKG Comparison: Other - Change from 04/23/16 GIGU Course/Dx - Course Course Of Treatment: Ms Smith presented to the ED C/O severe, diffuse abdominal pain and was found to have diffuse tenderness. She had surgery a month ago for ischemic bowel and had subsequent surgery for an incision infection. On presentation, she was tachycardic and she was treated for presumed sepsis with fluids and Zosyn. She dropped her pressure here once which responded quickly to the fluids (it happened just as they were initially being hung). Her CT returned looking like ischemic bowel again and fluids were continued, flagyl was added and Dr. Weeks was notified. - Diagnoses Provider Diagnoses: Ischemic bowel disease, Sepsis - Physician Notifications Discussed Care Of Patient With: Dr. Weeks - [id number], Dr. Forrester - [phone] - Critical Care Time Critical Care Time: 30-74 min Discharge - Discharge Plan Condition: Critical Disposition: ADMITTED TO [facility] The documentation as recorded by the Luis mustafa Matthew accurately reflects the service I personally performed and the decisions made by me, Michael Benites MD.
[2016-05-15] MEDS ORDERED: Ondansetron INJ* 2 MG/ML VIAL IV PRN (16:52)
[2016-05-15] MEDS ORDERED: Morphine INJ* 4 MG/ML 1 ML SYRINGE IV PRN (16:52)
[2016-05-15] MEDS ORDERED: Haloperidol INJ IV/IM* 5 MG/ML AMP IV SLOW PU PRN (16:52)
[2016-05-15] MEDS ORDERED: LORazepam INJ* 2 MG/ML 1 ML VIAL IV PUSH PRN (16:53)
[2016-05-15] MEDS ORDERED: Morphine PCA ADULT* 5 MG/ML 30 ML PCA SCH ×2 (17:00→23:51)
--- NOTE | 2016-05-15 17:25 | HP ---
H&P (Free Text) History and Physical: CRITICAL CARE MEDICINE DATE: 05/15/16 TIME: 1620 REFERRING PROVIDER: Kamari REASON/CHIEF COMPLAINT: abd pain HISTORY OF PRESENT ILLNESS: 60 F known to ICU bed 2 post ischemic small bowel and resection last month with step up re-anastomosis at that time with prolonged course given her comorbidites. Pt states she had been doing ok but pain dramatic last 24hrs and associated n/v. Presented to ED. REVIEW OF SYSTEMS: As per HPI. PAST MEDICAL HISTORY: As per HPI. underlying uncontrolled DM, ischemic CM s/p AICD, Malnutrition, mod degree, h/o etoh abuse and hepatitis. MEDICATIONS: Reviewed. multiple oupt meds uncoinfirmed at this time. ALLERGIES: Reviewed. codeine - hives; asa, dye SOCIAL HISTORY: Reviewed. lives with BF. Proxy is Manav Smith ([phone]), and she relies on her son Nick Smith ([phone]) for guidance and second proxy FAMILY HISTORY: Noncontributory at present. PHYSICAL EXAM: appears acute on chronically ill and cachectic Vital Signs: Reviewed. Hr 80s. SBP 130s now. RR~20. 2L O2. Neurologic: awake, communicates slowly but does respond ultimately appropriately and holds capacity. HEENT: anicter, perrl, mm dry Cardiovascular: distant, pacer pocket intact Respiratory: good inhalation phase and mildly prolonged exhalation. not as tachypnic as she should be. lack of compensation. Abdomen: tight, blood from gtube site and dressing saturated. discomfort globally to palpation Extremities: cool, delayed refill. chronic changes Access: per LABS: Reviewed. Laboratory Last Values WBC 22.6 10^3/ul (3.5-10.8) H 05/15/16 14:55 RBC 5.48 10^6/ul (4.0-5.4) H 05/15/16 14:55 Hgb 13.0 g/dl (12.0-16.0) 05/15/16 14:55 Hct 43 % (35-47) 05/15/16 14:55 MCV 79 fL (80-97) L 05/15/16 14:55 MCH 24 pg (27-31) L 05/15/16 14:55 MCHC 30 g/dl (31-36) L 05/15/16 14:55 RDW 19 % (10.5-15) H 05/15/16 14:55 Plt Count 599 10^3/ul (150-450) H D 05/15/16 14:55 MPV 8 um3 (7.4-10.4) 05/15/16 14:55 Immature Gran % (Auto) 23 % (0-9) H 05/15/16 14:55 Neut % (Auto) 94.6 % (38-83) H 05/15/16 14:55 Lymph % (Auto) 2.2 % (25-47) L 05/15/16 14:55 [place] % (Auto) 3.1 % (1-9) 05/15/16 14:55 Eos % (Auto) 0 % (0-6) 05/15/16 14:55 Baso % (Auto) 0.1 % (0-2) 05/15/16 14:55 Absolute Neuts (auto) 21.4 10^3/ul (1.5-7.7) H 05/15/16 14:55 Absolute Lymphs (auto) 0.5 10^3/ul (1.0-4.8) L 05/15/16 14:55 Absolute Monos (auto) 0.7 10^3/ul (0-0.8) 05/15/16 14:55 Absolute Eos (auto) 0 10^3/ul (0-0.6) 05/15/16 14:55 Absolute Basos (auto) 0 10^3/ul (0-0.2) 05/15/16 14:55 Absolute Nucleated RBC 0.01 10^3/ul 05/15/16 14:55 Neutrophils % 68 % (38-83) 05/15/16 14:55 Band Neutrophils % 22 % (0-8) H 05/15/16 14:55 Lymphocytes % 6 % (25-47) L 05/15/16 14:55 Monocytes % 3 % (0-13) 05/15/16 14:55 Metamyelocytes % 1 % (0-2) 05/15/16 14:55 Nucleated RBC % 0 05/15/16 14:55 Normal RBC Morphology Not Reportable 05/15/16 14:55 Hypochromasia 1+ 05/15/16 14:55 INR (Anticoag Therapy) 1.27 (0.89-1.11) H 05/15/16 14:55 APTT 27.9 seconds (26.0-36.3) 05/15/16 14:55 Sodium 132 mmol/L (133-145) L 05/15/16 14:55 Potassium 4.4 mmol/L (3.5-5.0) 05/15/16 14:55 Chloride 93 mmol/L (101-111) L 05/15/16 14:55 Carbon Dioxide 20 mmol/L (22-32) L 05/15/16 14:55 Anion Gap 19 mmol/L (2-11) H 05/15/16 14:55 BUN 86 mg/dL (6-24) H 05/15/16 14:55 Creatinine 1.58 mg/dL (0.51-0.95) H 05/15/16 14:55 Est GFR ( Amer) 42.6 (>60) 05/15/16 14:55 Est GFR (Non-Af Amer) 33.1 (>60) 05/15/16 14:55 BUN/Creatinine Ratio 54.4 (8-20) H 05/15/16 14:55 Glucose 300 mg/dL (70-100) H 05/15/16 14:55 Lactic Acid 6.2 mmol/L (0.5-2.0) H* 05/15/16 14:55 Calcium 10.0 mg/dL (8.6-10.3) 05/15/16 14:55 Total Bilirubin 0.80 mg/dL (0.2-1.0) 05/15/16 14:55 AST 121 U/L (13-39) H 05/15/16 14:55 ALT 54 U/L (7-52) H 05/15/16 14:55 Alkaline Phosphatase 142 U/L (34-104) H 05/15/16 14:55 Troponin I 0.08 ng/mL (<0.04) H* 05/15/16 14:55 C-Reactive Protein 361.13 mg/L (< 5.00) H 05/15/16 14:55 Total Protein 8.0 g/dL (6.4-8.9) 05/15/16 14:55 Albumin 3.2 g/dL (3.2-5.2) 05/15/16 14:55 Globulin 4.8 g/dL (2-4) H 05/15/16 14:55 Albumin/Globulin Ratio 0.7 (1-3) L 05/15/16 14:55 IMAGING: Reviewed. CT reviewed. Extensive vasculopathy and extensive ischemic colitits/pneumotosis and extensive pneumobillia. ASSESSMENT: 60 F presenting with acute extensive ischemic bowel and severe sepsis headed towards septic shock and msof with lack of compensation. D/w pt, pts proxy [id number] Manav Smith ([phone]), and her son Nick Smith ([phone]) second proxy. All in agreement to forgo aggressive measures including OR, life support as these are futile for any meaningful result. DNR, DNI, comfort measures only. Already early onset acute hypoxic resp failure and I would favor a few liters of O2 if this keeps her comfortable with her flow phases; She is not compensating for her needs currently, which she very well may not then and this will help her comfort needs. If she does become tachypnic, would need more morphine. Start morphine gtt at low dose and titrate for comfort. IVF for now to help her maintain her mentation and perfusion state and dilute acid while she can, but given the degree of fluids required to combat her bowel needs and LA, this would hasten her with pulm edema, and I explained we would attempt to avoid that. Zosyn can continue for now to perhaps give her a bit more comfortable time as perforation and ongoing sepsis to ensue. She may have a little time though. Renal failure will continue but may not be painful, however can follow up if edwards needed for comfort. BG, plt etc all reactive. No indication for tx there. Can ask Palliative care to follow in am. Patient asked me how long she has: I gave her a few days perhaps. Supportive care as ordered. D/w Surgery Dr. Weeks. D/w Dr. Bales and can be admitted to hospitalist service. Disposition: floor, comfort Code Status: DNR/DNI Critical Care Time: 60min Campbell Forrester DO
--- NOTE | 2016-05-15 18:47 | CONS ---
SURGICAL CONSULTATION: DATE OF CONSULT: 05/15/16 LOCATION: Emergency room. REASON FOR CONSULT: Abdominal pain. REQUESTING PHYSICIAN: Dr. Michael Benites. HISTORY OF PRESENT ILLNESS: Little Smith is a 60-year-old female known to the surgical associates service having presented to the [facility] Emergency Room on 04/10/16 with acute abdomen, portal venous air on CT scan, and she was taken to the operating room where she underwent a diagnostic laparoscopy and laparotomy and two small bowel resections. She had a second- look laparotomy performed on 04/12/16 and she was discharged on 04/19/16 to [facility]. She does have a history of CHF, type 2 diabetes, coronary artery disease, history of DVT, COPD, anxiety, peripheral neuropathy, chronic back pain, status post AICD placement, and a history of multiple falls. She ended up recovering from surgery which included placement of gastrostomy tube and prior to discharge, she was arranged to have a wound VAC. She was discharged to [facility], but was readmitted on the because of possible wound dehiscence and infection as well as alcoholic hepatitis that was managed with steroids. The patient again subsequently improved and had her gastrostomy tube removed on the . She was discharged to [facility] [place] on the . She had a followup in the surgical associates office on the at which time she was still draining from her gastrostomy tube site. The patient apparently developed problems with abdominal pain and nausea over the past several days and had vomiting reported in the nurses' notes at [facility] [place] on the with poor appetite. She was brought to [facility] Emergency Room today with severe abdominal pain worsening over 24 hours. In the emergency room, she was evaluated and noted to have WBCs of 22.6 with 22 % bands. Her creatinine had increased to 1.6 from 0.6 and she had lactate of 6.2. A CT scan of the abdomen and pelvis was revealing of extensive portal venous gas, colonic pneumatosis of the distal transverse, descending colon, extensive distention of the small bowel. Based on these findings, a surgical evaluation was requested. PAST MEDICAL HISTORY: As noted above. PAST SURGICAL HISTORY: CABG, AICD/pacemaker placement, and bowel resection with gastrostomy placement as above. MEDICATIONS: 1. Symbicort. 2. Bumetanide. 3. Clopidogrel. 4. Metformin. 5. Metoprolol. 6. Singulair. 7. Insulin. 8. Ramipril. 9. Sertraline. 10. Spiriva. 11. Spironolactone. 12. Omeprazole. 13. Lactobacillus. 14. Gabapentin. 15. Nystatin suspension. ALLERGIES: CODEINE, IOHEXOL, ASPIRIN. FAMILY HISTORY: Noncontributory. SOCIAL HISTORY: Currently resides at [facility]. History of tobacco and alcohol abuse. PHYSICAL EXAM: This is an ill-appearing 60-year-old female lying in the emergency room stretcher. She is 5 feet 2 inches tall, 100 pounds, temperature 97.2, pulse is 96, respirations 20, blood pressure 120/58, O2 sat 100% on room air. Head is normocephalic and atraumatic. Sclerae anicteric. Her abdomen is notable for dark bloody saturation on the abdominal wound dressing which is covering her gastrostomy tube site. Surrounding this, the entire skin is erythematous and excoriated. There is a midline wound which exhibits no granulation and is packed with saline gauze. The wound does not exhibit any discharge or purulence. Her abdomen is quiet. There is diffuse tenderness to light or deep palpation or to percussion. DIAGNOSTIC STUDIES/LAB DATA: Significant for those findings as above. Her CT scan images were reviewed. IMPRESSION: This is a 60-year-old female with a complex past medical history with recent diagnosis of bowel ischemia. She now presents with evidence of additional bowel ischemia involving at least the distal transverse and descending colon. Likely, this is secondary to her extensive peripheral vascular disease. PLAN/RECOMMENDATIONS: I have met with the patient and discussed the findings with her and also discussed the case with Dr. Forrester from Critical Care Medicine. Because of her multiple medical problems and the severity of ischemia , it is felt that a surgical intervention would be heroic and that she would be unlikely to ultimately survive this disease process. Dr. Forrester has discussed this with the patient's healthcare proxy and they are in favor of comfort measures only. The hospital service will be admitting the patient for palliative care. CC: Ramy Gary MD * [id number]/[facility] #: [id number]
[2016-05-15] MEDS: NS 0.9% 1000 ML* 1,000 ML IV SCH (19:42)
[2016-05-15] MEDS: Piperac/Tazob 3.375 gm in NS* 3.375 GM/100 ML BAG IVPB SCH (21:17)
[2016-05-15 23:09] VITALS: BP 55/32
[2016-05-16] MEDS: Piperac/Tazob 3.375 gm in NS* 3.375 GM/100 ML BAG IVPB SCH (03:33)
[2016-05-16] MEDS: NS 0.9% 1000 ML* 1,000 ML IV SCH (05:32)
--- NOTE | 2016-05-16 10:00 | PN ---
Progress Note - Progress Note Note: Entered room to find nurse at bedside with suspicion that patient had just . Confirmed no heart beat or respirations. Patient pronounced at 0910. Called patient's [id number] to update. Nurse will contact sister- in-law's son, Nick, to make further arrangements.
--- NOTE | 2016-05-16 23:24 | DS ---
HOSPITAL MEDICINE DISCHARGE SUMMARY: DATE OF ADMISSION: 05/15/16 DATE OF : 05/16/16 TIME OF : 9:10 a.m. ATTENDING PHYSICIAN: Waqas Bush MD *(DICTATED BY DAVID TREJO NP) CAUSE OF : 1. Sepsis. 2. Ischemic small bowel. 3. Systolic congestive heart failure with an ejection fraction of 25% to 30%. SECONDARY DIAGNOSES: 1. History of alcoholic hepatitis. 2. Coronary artery disease, status post coronary artery bypass graft. 3. History of deep venous thrombosis in 2014. 4. Anxiety. 5. Neuropathy. 6. Chronic pain. 7. Automatic implantable cardioverter-defibrillator placement. 8. Cutaneous allodynia. HOSPITAL COURSE: Ms. Smith was a 60-year-old female with a history of small bowel ischemia and ileus, April 2016, as well as a long-standing history of congestive heart failure with a systolic and diastolic dysfunction with ejection fraction 25% to 30% as well as coronary artery disease with CABG, who presented to our hospital on 05/15/16 with concern for the sudden-onset abdominal pain. Please see the dictated H and P from Dr. Forrester for complete details. In brief, the patient had a CT scan on arrival, it showed the following: "Colonic pneumatosis and extensive portal venous gas most consistent with ischemic small bowel." The patient was immediately seen by the biodiesel plant manager and by Dr. Weeks from surgical services. Case was reviewed extensively between the family and providers. It was felt that she would not tolerate further surgical intervention given her multiple medical problems and the severity of the ischemia and sepsis. Ms. Smith was admitted to the hospital for comfort care. She was DNR/DNI. She was placed on morphine drip overnight. Fluids and antibiotics were continued short- term. This morning at 9:10 a.m., the patient was observed to have , with no respirations or heartbeat. The patient's [id number] was updated and arrangements will be made with the family. TIME SPENT: Approximately 20 minutes was spent in the discharge of [place] [id number]/[facility] #: [id number] [facility]
== END 2016-05-16 09:10 | disposition expired | DRG 720 ==
LOC: ED 13:59 → MED 16:47
PROVIDERS: ADMIT Internal Medicine; ATTEND Internal Medicine
DX: A41.9 Sepsis, unspecified organism (principal); K55.039 Acute (reversible) ischemia of large intestine, extent unspecified; J96.01 Acute respiratory failure with hypoxia; I50.20 Unspecified systolic (congestive) heart failure; I25.810 Atherosclerosis of coronary artery bypass graft(s) without angina pectoris; E44.0 Moderate protein-calorie malnutrition; Z68.1 Body mass index [BMI] 19.9 or less, adult; K70.10 Alcoholic hepatitis without ascites; I73.9 Peripheral vascular disease, unspecified; F41.9 Anxiety disorder, unspecified; E11.65 Type 2 diabetes mellitus with hyperglycemia; I25.5 Ischemic cardiomyopathy; Z95.0 Presence of cardiac pacemaker; Z79.84 Long term (current) use of oral hypoglycemic drugs; Z79.4 Long term (current) use of insulin; Z79.899 Other long term (current) drug therapy; Z88.6 Allergy status to analgesic agent; Z88.8 Allergy status to other drugs, medicaments and biological substances; Z66 Do not resuscitate
CPT/HCPCS: 36415; 74176; 80053; 83605; 84484; 85025; 85610; 85730; 86140; 87040; 87077; 87186; 87205; 87641; 93005; J1170; J2060; J2405; J2543